=== PATIENT | female | born 1935 | race Caucasian/White ===

== ENCOUNTER → 2018-01-15 13:12 | Outpatient (CLI) | payer MEDICARE, OTHER, SELFPAY ==
--- NOTE | 2018-01-15 | OV.WND_ITS ---
Progress Note Details Patient Name: Arina Seaman Patient Number: [id number] PatientPatientDate: 01/15/2018 Clinician: Arlene Mcdonald Clinician Cosigner: Valeria Delacruz Physician / Prototype Engineer Manager: Brett Davila SUBJECTIVE Chief Complaint This information was obtained from the patient Cellulitis Right and Left legs. Allergies ciprofloxacin (Severity: Moderate, Reaction: dizzy light headed and heart palpatations), codeine (Severity: Mild, Reaction: Nausea and vomiting), morphine (Severity: Mild, Reaction: Nausea and Vomiting) HPI This information was obtained from the patient 01/15/18. Seen by Dr. Davila. The patient returns to clinic with recurrent of bilateral lower leg cellulitis and associated ulcers from scratching the areas due to severe pruritus. She has severe bilateral chronic venous hypertension and a history of recurrent MRSA infection of the legs. She does not report fevers, feeling unwell today, or other acute issues at this time. 05/23/17. Seen by Dr. Davila. The patient reports some continued pruritus associated with the right lower leg rash however does not report drainage or pain associated with the right lower leg venous ulcer since her last visit. Of note, she's not been applying the topical cortisone cream as recommended. 05/16/17. Seen by Dr. Davila. The patient reports decreased drainage and pruritus associated with the chronic bilateral lower leg venous ulcers. Her wound culture from last visit grew Staph pseudointermedius and she's been applying topical gentamicin daily as prescribed. 05/07/17. Seen by Dr. Davila. The patient returns to clinic with recurrence of bilateral lower leg venous ulcers. She states that the ulcers started draining over the past week and they are quite pruritic. She is not wearing her compression stockings as previously recommended and has been applying a number of [id number] topical ointments to treat the ulcers without any improvement over the past few weeks. 11/22/16. Seen by Dr. Davila. The patient states that her bilateral lower leg chronic rash is much improved following application of triamcinolone daily over the past 7 days. She reports much less pruritus and only some minimal excoriation in the akshat-rash areas. 11/15/16. Seen by Dr. Davila. The patient reports some persistent pruritus and drainage associated with the chronic and recurrent bilateral lower leg rash since her last visit. She does not report drainage from the recently healed right lower leg trauma wound however. 11/01/16. Seen by Dr. Davila. The patient does not report pain nor drainage associated with chronic right lower leg trauma wound. She does continue to have a bilateral lower leg rash that is quite itchy and she reports some excoriation and drainage at the sites. 10/25/16. Seen by Dr. Davila. The patient does not report pain or significant drainage associated with the slowly healing right lower leg trauma wound over the past week. 10/16/16. Seen by Lit Bills PA-C. The patient reports no increase in drainage from her right lower leg trauma wound. 10/09/16. Seen by Dr. Davila. The patient does not report pain or significant drainage associated with the slowly healing right lower leg trauma wound over the past week. She does report a new wound just proximal to the trauma wound that started as a blister then denuded while removing the dressing. She also continues to apply topical cortisone to the periwound rash as recommended. 10/02/16. Seen by Dr. Davila. The patient does not report pain nor significant drainage associated with the chronic right lower leg trauma wound since her last visit. She continues to report a mild, non-pruritic rash in the periwound area and has been applying topical hydrocortisone ointment daily to treat this problem. 09/25/16. Seen by Dr. Davila. The patient reports minimal pain and drainage associated with the chronic right lower leg trauma wound since her last visit. She did not tolerate clindamycin and is currently not taking antibiotics. She does report some persistent redness and drainage along the medial aspect of the wound which has previously been treated with steroid cream. 09/20/16. Seen by Dr. Davila. The patient does not report increased pain or drainage associated with the chronic right lower leg trauma wound. She was started on clindamycin for the recent coag negative Staph culture after the last visit due to wound infection however stopped taking this due to feeling dizzy. She does not report a rash, swelling, shortness of breath or any other specific symptoms associated with taking the antibiotic. 09/10/16. Seen by Lit Bills PA-C. The patient does not report increased drainage from her right lower leg wound or venous ulcer since her last evaluation. 09/05/16. Seen by Dr. Davila. The patient some increased pain and drainage associated with the chronic right lower leg trauma wound over the past week. She does not report any changes regarding the nearby right lower leg venous ulcer. 08/29/16. Seen by Dr. Davila. The patient feels the drainage and pain associated with the right lower leg trauma wound improved considerably since her last visit. 08/22/16. Seen by Dr. Davila. The patient feels the drainage and pain associated with the right lower leg trauma wound improved considerably since completing her course of antibiotics. Of note, her wound culture however was unremarkable. 08/20/16. Seen by Lit Bills PA-C. The patient reports no increase in pain or drainage from her right lower leg trauma wound since her last evaluation. 08/08/16. Seen by Dr. Davila. The patient reports some mild pain but no significant drainage associated with the right lower leg trauma wound. 08/05/16. Seen by Lit Bills PA-C. The patient reports some clear drainage from her wound since her last evaluation. It has now been 13 days since her sutures were placed in the ER and she is concerned about them being removed too early and would like me to assess if they need to be removed today. 07/30/16. Seen by Lit Bills PA-C. The patient returns to our clinic with a new wound to her right anterior lower leg. The wound was sustained by bumping her leg into an object and she notes little to no pain, which is dull in nature, non-radiating and is exacerbated by pressure. The patient reports no associated drainage though she does report bruising and a hematoma formation that, to her, appears intact. 01/15/[address] Davila. The patient feels her right lower leg swelling is much improved and she does not report drainage on her wound dressing covering the right lower leg chronic venous ulcer over the past week. 01/04/16. Seen by Dr. Davila. The patient feels that the bilateral leg swelling continues to improve and she states she's wearing compression stockings daily is recommended. She is also applying triamcinolone cream to the erythematous areas over the anterior lower legs and feels this has helped diminish the rash. 12/28/15. Seen by Dr. Davila. The patient continues to report swelling in her bilateral lower legs and is concerned about some erythema anteriorly. She reports a moderate drainage on the right leg venous ulcers and has been wearing compression stockings to treat chronic venous retention. She's unable to tolerate compression wraps however. She's now on doxycycline for a recurrent right lower leg wound infection and is not report adverse side effects. 12/22/[address] Davila. The patient feels her right lower leg erythema persists and complains of some mild discomfort along the medial aspect of the leg. She's wearing her compression stockings as recommended to treat chronic venous hypertension. She does not report significant drainage from he chronic right lower leg venous ulcer since her last visit. 12/14/[address] Davila. The patient feels her right lower leg swelling and redness have improved over the past week and she continues to wear her compression stocking as recommended to address her chronic venous hypertension. 12/07/[address] Davila. The patient does not report pain associated with the right lower leg venous ulcer and feels he drainage continues to decrease. 11/28/15 Seen by Lit Bills PA-C. The patient's lower leg edema continues to be difficult for her to control and does not seem improved by her assessment. She reports stable drainage from her ulcer. 11/21/[address] Davila. The patient feels the right lower leg venous ulcer is improving since starting on doxycycline for the recent MRSA positive wound culture and she does not report adverse side effects, associated pain, or fevers over the past week. The staff do not report significant drainage on the dressings and the patient does not report any problems with the bilateral lower leg compression wraps that are treating chronic venous hypertension. 11/17/[address] Davila. The patient is now on doxycycline for her MRSA positive wound culture taken at the last visit and she does not report adverse side effects. She's tolerating the compression stockings that's treating her chronic venous hypertension and her bilateral arterial Doppler was unremarkable. She also reports only minimal drainage from the chronic right lower leg venous ulcer. 11/10/[address] Davila. The patient returns to clinic reporting a new right lower leg ulcer and increased bilateral leg swelling. She states the ulcer started as a blister a few weeks ago, drains a moderate amount of clear fluid, and has developed some surrounding redness over the past week. She reports only minimal pain at the site and no fevers. She's also not been able to wear her compression stockings that's been treating chronic venous hypertension due to the increased leg swelling. 04/13/14 The patient does not report fever, chills or increased edema or erythema to her legs. 03/29/14 The patient was unable to complete her course of doxycycline due to constipation which is a common problem for her when taking antibiotics. The left let redness persists but she does not report a fever, chills, or pain. 03/23/14 The patient presents with increased edema and erythema of the left leg. She also has a blister on the left leg that is now weeping clear fluid. 03/07/14 Patient states she removed her wraps the evening after they were applied because they wouldn't stay up. She then applied her tetragrip stockings given to her at a previous visit. 03/02/14 The patient states that there were no problems with the Coban Lite compression wraps. However, they did slide down a bit and were uncomfortable after that. 02/28/14 Arina states she had no problems with her Tetragrips. She has been walking more often and she thinks her legs are feeling better. Her TOYIN study performed today was normal. 02/24/14 The patient was referred by Dr. Boo for lower extremity edema following a recent admission for left leg cellulitis treated with O/P IV vancomycin. This is a recurrent problem for many years and the patient's had workups in the past confirming venous insufficiency but does not recall having an arterial workup. She had laser therapy for venous insufficiency in the . Family History This information was obtained from the patient Unknown History - Maternal Grandparents, Paternal Grandparents, Heart Disease - Father, Sibling Social History This information was obtained from the patient Former smoker - 30 years and [id number], Alcohol Use - 1 drink 1-2 x week, Caffeine Use - 0-1, Marital Status - never , Retired - Lives alone/good support Past Medical History This information was obtained from the patient Patient has a medical history of: Varicose Veins (laser treament in past) Chronic venous hypertension (with inflammation) Hypothyroidism Hyperlipidemia Hypertention Osteoarthritis Aortic stenosis Morbid obesity Cellulitis (Both Legs) Migraines Verisocities of legs Surgical History This information was obtained from the patient Patient has a surgical history of: appendectomy removal colon polyps breast cystectomy laser surgery veins bilateral legs Complaints and Symptoms This information was obtained from the patient Patient complains of: General Notes: I have reviewed and concur with the Review of Systems and Past Family Social History documents completed by the clinician, I have reviewed and concur with the Wound Assessment document completed by the clinician Allergic/Immunologic: Frequent Rashes Cardiovascular (Central/Peripheral): Lower extremity (leg) swelling Integumentary (Hair/Skin/Nails): Open Sore Prior Wound History: Drainage, Erythema Patient denies complaints or symptoms related to: Cardiovascular (Central/Peripheral): Intermittent Claudication, Lower extremity (leg) resting pain Constitutional Symptoms (General Health): Chills, Fever, Marked Weight Change Ear/Nose/Mouth/Throat: Hearing Loss / Aid Gastrointestinal (GI): Nausea / Vomiting Hematologic/Lymphatic: Bleeding / Clotting Disorders, Bleeding Tendency Musculoskeletal: Assistive Devices Neurological: Loss of Protective Sensation, Weakness Prior Wound History: Bleeding, Malodor, Pain Psychiatric: Depression, Memory Loss Respiratory: Oxygen Use, Shortness of Breath General Notes: States updated on all Immunizations. Additional Information Does patient have a history of Cancer? Yes? Complete all questions.: No Medications simvastatin 20 mg tablet oral 1 1 tablet oral once daily lisinopril 20 mg tablet oral 1 1 tablet oral once daily metoprolol tartrate 50 mg tablet oral 1 1 tablet oral once daily triamterene 37.5 mg-hydrochlorothiazide 25 mg capsule oral 1 1 capsule oral once daily levothyroxine 125 mcg tablet oral 1 1 tablet oral once daily Bactrim DS 800 mg-160 mg tablet oral tablet oral twice daily for 7 days for cellulitis triamcinolone acetonide 0.1 % topical cream topical cream topical once daily for 7 days for rash OBJECTIVE Constitutional Vital signs reviewed and noted. Well developed. Alert. Clean appearing.. Height/ Length: 67 in (170.18 cm), Weight: 204 lbs (92.73 kgs), BMI: 31.9, Temperature: 98.8 ?F ( 37.11 ?C), Pulse: 88 bpm, Respiratory Rate: 18 breaths/min, Blood Pressure: 110/57 mmHg, Pulse Oximetry: 98 %. Ears, Nose, Mouth, and Throat: No clinically significant hearing loss on informal examination. Respiratory: No respiratory distress. Even respirations and without use of accessory muscles.. Cardiovascular: 2+ bilateral lower leg edema. Gastrointestinal (GI): Obese. Nondistended.. Integumentary (Hair, Skin) Moderate bilateral lower leg periwound erythema with warmth. Refer to appropriate clinician wound documentation for this visit; right and left lower leg ulcers extend to subcut with bases partially covered with pink granulation, remainder fibrin and slough. Wound #7 Left Leg is a chronic Partial Thickness Cellulitis and has received a status of Not Healed. Initial wound encounter measurements are 0.6cm length x 0.4cm width x 0.3cm depth, with an area of 0.24 sq cm and a volume of 0.072 cubic cm. No tunneling has been noted. No sinus tract has been noted. No undermining has been noted. There is a moderate amount of serous drainage noted which has no odor. The patient reports a wound pain of level 0/10. The wound margin is attached. Wound bed has No epithelialization, No eschar, Yes slough, No granulation. The periwound skin moisture is normal. The periwound skin color is normal. The periwound skin exhibited: Edema, Rash. The temperature of the periwound skin is Warm. Periwound skin presents with s/s of infection. Confirmation Description and Treatment Plan is: Signs and Symptoms Present. Local Pulse is Doppler. General Notes: Redness area [id number] Wound #8 Right Leg is a chronic Partial Thickness Cellulitis and has received a status of Not Healed. Initial wound encounter measurements are 1cm length x 0.3cm width x 0.1cm depth, with an area of 0.3 sq cm and a volume of 0.03 cubic cm. No tunneling has been noted. No sinus tract has been noted. No undermining has been noted. There is a small amount of serous drainage noted which has no odor. The patient reports a wound pain of level 0/ 10. The wound margin is attached. Wound bed has No epithelialization, No eschar, Yes slough, No granulation. The periwound skin texture is normal. The periwound skin moisture is normal. The periwound skin color is normal. The temperature of the periwound skin is Warm. Periwound skin presents with s/s of infection. Confirmation Description and Treatment Plan is: Signs and Symptoms Present. Local Pulse is Doppler. General Notes: Redness area measures [id number] Neurological: Cranial nerves grossly intact with symmetric function normal by informal observation.. ASSESSMENT Active Problems ICD-10 (Encounter Diagnosis) L03.116 - Cellulitis of left lower limb (Encounter Diagnosis) L03.115 - Cellulitis of right lower limb (Encounter Diagnosis) L97.811 - Non-pressure chronic ulcer of other part of right lower leg limited to breakdown of skin (Encounter Diagnosis) L97.821 - Non-pressure chronic ulcer of other part of left lower leg limited to breakdown of skin (Encounter Diagnosis) I87.313 - Chronic venous hypertension (idiopathic) with ulcer of bilateral lower extremity (Encounter Diagnosis) L29.8 - Other pruritus PROCEDURES Wound #8 Wound #8 (Cellulitis) is located on the right leg. A skin/subcutaneous tissue level surgical debridement with a total area debrided of 0.3 sq cm was performed by Brett Davila MD. Subcutaneous was removed along with devitalized tissue: slough. The following instrument(s) were used: curette. Pain control was achieved using EMLA lidocaine/prilocaine 2.5%/2.5%. A time out was conducted prior to the start of the procedure. No bleeding occurred. The procedure was tolerated well with a pain level of 0 throughout and a pain level of 0 following the procedure. Post Debridement Measurements: 1cm length x 0.3cm width x 0.1cm depth; with an area of 0.3 sq cm and a volume of 0.03 cubic cm; Additional Information Muscle fascia or bone removed and sent to pathology?: No PLAN Wound Orders: Wound #7 Left Leg Cleanser Cleanse Wound: - Clean with Normal saline or distilled. May Shower. - Please keep legs dry use Cast Boot when shower. Topical Treatments Antibiotic/Antimicrobial Ointment/Cream. - Triamcinolone Cream to legs every day. Make sure you rub well into your skin. Dressings Primary dressing: - Telfa to cover red area. Cover and secure with: - Roll gauze and transpore tape. Change Dressing: - Every day. Compression/Edema Control Elevation of leg(s) above the level of the heart when sitting. Avoid prolonged standing in one place. Single Layer Compression Hose - Terta Hand Plug Shaper Size F and G. Remove at night. Follow-Up Appointments Return Appointment: - - Next week. Scribing Attestation I attest, as the nurse, that I scribed these orders for the physician. Wound #8 Right Leg Cleanser Cleanse Wound: - Clean with Normal saline or distilled. May Shower. - Please keep legs dry use Cast Boot when shower. Topical Treatments Antibiotic/Antimicrobial Ointment/Cream. - Triamcinolone Cream to legs every day. Make sure you rub well into your skin. Dressings Primary dressing: - Telfa to cover red area. Cover and secure with: - Roll gauze and transpore tape. Change Dressing: - Every day. Compression/Edema Control Elevation of leg(s) above the level of the heart when sitting. Avoid prolonged standing in one place. Single Layer Compression Hose - Terta Hand Plug Shaper Size F and G. Remove at night. Follow-Up Appointments Return Appointment: - - Next week. Scribing Attestation I attest, as the nurse, that I scribed these orders for the physician. Laboratory: Culture Wound - Right Leg Medications prescribed: Bactrim DS - oral 800 mg-160 mg tablet twice daily for 7 days for cellulitis starting 01/15/2018 triamcinolone acetonide - topical 0.1 % cream once daily for 7 days for rash starting 01/15/2018 General Notes: Start Bactrim antibiotic today. I've reviewed the clinician's documentation and agree with the evaluation and plan as written. In addition, the patient's ulcer demonstrates evidence of non-viable devitalized tissue which will continue to benefit from sharp debridement to help promote granulation and expedite healing. Also, I've started the patient empirically on Bactrim for bilateral lower leg cellulitis and will adjust antibiotics pending the culture results. Electronic Signature(s) Signed By: Date: Brett Davila MD 01/16/2018 07:58:24 Entered By: Brett Davila on 01/16/2018 07:19:55
== END ==
PROVIDERS: Family Provider Internal Medicine; PCP Family Medicine; Visit Provider Internal Medicine
DX: L03.116 Cellulitis of left lower limb (principal); L03.115 Cellulitis of right lower limb; L97.812 Non-pressure chronic ulcer of other part of right lower leg with fat layer exposed; L97.822 Non-pressure chronic ulcer of other part of left lower leg with fat layer exposed; L29.8 Other pruritus
CPT/HCPCS: 11042; 87070; 87075; 87077; 87147; 87186; 87205

== ENCOUNTER → 2018-01-20 14:48 | Outpatient (CLI) | payer MEDICARE, OTHER, SELFPAY ==
--- NOTE | 2018-01-20 | OV.WND_ITS ---
Progress Note Details Patient Name: Arina Seaman Patient Number: [id number] PatientPatientDate: 01/20/2018 Clinician: Mami Ely Clinician Cosigner: Valeria Delacruz Physician / Accounts Receivable Analyst: Brett Davila SUBJECTIVE Chief Complaint This information was obtained from the patient Cellulitis Right and Left legs. Allergies ciprofloxacin (Severity: Moderate, Reaction: dizzy light headed and heart palpatations), codeine (Severity: Mild, Reaction: Nausea and vomiting), morphine (Severity: Mild, Reaction: Nausea and Vomiting) HPI This information was obtained from the patient 01/20/18. Seen by Dr. Davila. The patient reports a significant improvement in terms of pruritus and itching associated with the bilateral lower leg non-pressure ulcers since starting on Bactrim at her last visit. Her wound culture grew a resistant MSSA organism sensitive to Bactrim and the patient does not report adverse side effects from the antibiotic , fevers, nor other acute issues today. 01/15/18. Seen by Dr. Davila. The patient returns to clinic with recurrent of bilateral lower leg cellulitis and associated ulcers from scratching the areas due to severe pruritus. She has severe bilateral chronic venous hypertension and a history of recurrent MRSA infection of the legs. She does not report fevers, feeling unwell today, or other acute issues at this time. 05/23/17. Seen by Dr. Davila. The patient reports some continued pruritus associated with the right lower leg rash however does not report drainage or pain associated with the right lower leg venous ulcer since her last visit. Of note, she's not been applying the topical cortisone cream as recommended. 05/16/17. Seen by Dr. Davila. The patient reports decreased drainage and pruritus associated with the chronic bilateral lower leg venous ulcers. Her wound culture from last visit grew Staph pseudointermedius and she's been applying topical gentamicin daily as prescribed. 05/07/17. Seen by Dr. Davila. The patient returns to clinic with recurrence of bilateral lower leg venous ulcers. She states that the ulcers started draining over the past week and they are quite pruritic. She is not wearing her compression stockings as previously recommended and has been applying a number of poco-wrl-cqdizty topical ointments to treat the ulcers without any improvement over the past few weeks. 11/22/16. Seen by Dr. Davila. The patient states that her bilateral lower leg chronic rash is much improved following application of triamcinolone daily over the past 7 days. She reports much less pruritus and only some minimal excoriation in the akshat-rash areas. 11/15/16. Seen by Dr. Davila. The patient reports some persistent pruritus and drainage associated with the chronic and recurrent bilateral lower leg rash since her last visit. She does not report drainage from the recently healed right lower leg trauma wound however. 11/01/16. Seen by Dr. Davila. The patient does not report pain nor drainage associated with chronic right lower leg trauma wound. She does continue to have a bilateral lower leg rash that is quite itchy and she reports some excoriation and drainage at the sites. 10/25/16. Seen by Dr. Davila. The patient does not report pain or significant drainage associated with the slowly healing right lower leg trauma wound over the past week. 10/16/16. Seen by Lit Bills PA-C. The patient reports no increase in drainage from her right lower leg trauma wound. 10/09/16. Seen by Dr. Davila. The patient does not report pain or significant drainage associated with the slowly healing right lower leg trauma wound over the past week. She does report a new wound just proximal to the trauma wound that started as a blister then denuded while removing the dressing. She also continues to apply topical cortisone to the periwound rash as recommended. 10/02/16. Seen by Dr. Davila. The patient does not report pain nor significant drainage associated with the chronic right lower leg trauma wound since her last visit. She continues to report a mild, non-pruritic rash in the periwound area and has been applying topical hydrocortisone ointment daily to treat this problem. 09/25/16. Seen by Dr. Davila. The patient reports minimal pain and drainage associated with the chronic right lower leg trauma wound since her last visit. She did not tolerate clindamycin and is currently not taking antibiotics. She does report some persistent redness and drainage along the medial aspect of the wound which has previously been treated with steroid cream. 09/20/16. Seen by Dr. Davila. The patient does not report increased pain or drainage associated with the chronic right lower leg trauma wound. She was started on clindamycin for the recent coag negative Staph culture after the last visit due to wound infection however stopped taking this due to feeling dizzy. She does not report a rash, swelling, shortness of breath or any other specific symptoms associated with taking the antibiotic. 09/10/16. Seen by Lit Bills PA-C. The patient does not report increased drainage from her right lower leg wound or venous ulcer since her last evaluation. 09/05/16. Seen by Dr. Davila. The patient some increased pain and drainage associated with the chronic right lower leg trauma wound over the past week. She does not report any changes regarding the nearby right lower leg venous ulcer. 08/29/16. Seen by Dr. Davila. The patient feels the drainage and pain associated with the right lower leg trauma wound improved considerably since her last visit. 08/22/16. Seen by Dr. Davila. The patient feels the drainage and pain associated with the right lower leg trauma wound improved considerably since completing her course of antibiotics. Of note, her wound culture however was unremarkable. 08/20/16. Seen by Lit Bills PA-C. The patient reports no increase in pain or drainage from her right lower leg trauma wound since her last evaluation. 08/08/16. Seen by Dr. Davila. The patient reports some mild pain but no significant drainage associated with the right lower leg trauma wound. 08/05/16. Seen by Lit Bills PA-C. The patient reports some clear drainage from her wound since her last evaluation. It has now been 13 days since her sutures were placed in the ER and she is concerned about them being removed too early and would like me to assess if they need to be removed today. 07/30/16. Seen by Lit Bills PA-C. The patient returns to our clinic with a new wound to her right anterior lower leg. The wound was sustained by bumping her leg into an object and she notes little to no pain, which is dull in nature, non-radiating and is exacerbated by pressure. The patient reports no associated drainage though she does report bruising and a hematoma formation that, to her, appears intact. 01/15/[address] Davila. The patient feels her right lower leg swelling is much improved and she does not report drainage on her wound dressing covering the right lower leg chronic venous ulcer over the past week. 01/04/16. Seen by Dr. Davila. The patient feels that the bilateral leg swelling continues to improve and she states she's wearing compression stockings daily is recommended. She is also applying triamcinolone cream to the erythematous areas over the anterior lower legs and feels this has helped diminish the rash. 12/28/15. Seen by Dr. Davila. The patient continues to report swelling in her bilateral lower legs and is concerned about some erythema anteriorly. She reports a moderate drainage on the right leg venous ulcers and has been wearing compression stockings to treat chronic venous retention. She's unable to tolerate compression wraps however. She's now on doxycycline for a recurrent right lower leg wound infection and is not report adverse side effects. 12/22/[address] Davila. The patient feels her right lower leg erythema persists and complains of some mild discomfort along the medial aspect of the leg. She's wearing her compression stockings as recommended to treat chronic venous hypertension. She does not report significant drainage from he chronic right lower leg venous ulcer since her last visit. 12/14/[address] Davila. The patient feels her right lower leg swelling and redness have improved over the past week and she continues to wear her compression stocking as recommended to address her chronic venous hypertension. 12/07/[address] Davila. The patient does not report pain associated with the right lower leg venous ulcer and feels he drainage continues to decrease. 11/28/15 Seen by Lit Bills PA-C. The patient's lower leg edema continues to be difficult for her to control and does not seem improved by her assessment. She reports stable drainage from her ulcer. 11/21/[address] Davila. The patient feels the right lower leg venous ulcer is improving since starting on doxycycline for the recent MRSA positive wound culture and she does not report adverse side effects, associated pain, or fevers over the past week. The staff do not report significant drainage on the dressings and the patient does not report any problems with the bilateral lower leg compression wraps that are treating chronic venous hypertension. 11/17/[address] Davila. The patient is now on doxycycline for her MRSA positive wound culture taken at the last visit and she does not report adverse side effects. She's tolerating the compression stockings that's treating her chronic venous hypertension and her bilateral arterial Doppler was unremarkable. She also reports only minimal drainage from the chronic right lower leg venous ulcer. 11/10/[address] Davila. The patient returns to clinic reporting a new right lower leg ulcer and increased bilateral leg swelling. She states the ulcer started as a blister a few weeks ago, drains a moderate amount of clear fluid, and has developed some surrounding redness over the past week. She reports only minimal pain at the site and no fevers. She's also not been able to wear her compression stockings that's been treating chronic venous hypertension due to the increased leg swelling. 04/13/14 The patient does not report fever, chills or increased edema or erythema to her legs. 03/29/14 The patient was unable to complete her course of doxycycline due to constipation which is a common problem for her when taking antibiotics. The left let redness persists but she does not report a fever, chills, or pain. 03/23/14 The patient presents with increased edema and erythema of the left leg. She also has a blister on the left leg that is now weeping clear fluid. 03/07/14 Patient states she removed her wraps the evening after they were applied because they wouldn't stay up. She then applied her tetragrip stockings given to her at a previous visit. 03/02/14 The patient states that there were no problems with the Coban Lite compression wraps. However, they did slide down a bit and were uncomfortable after that. 02/28/14 Tommyn states she had no problems with her Tetragrips. She has been walking more often and she thinks her legs are feeling better. Her TOYIN study performed today was normal. 02/24/14 The patient was referred by Dr. Boo for lower extremity edema following a recent admission for left leg cellulitis treated with O/P IV vancomycin. This is a recurrent problem for many years and the patient's had workups in the past confirming venous insufficiency but does not recall having an arterial workup. She had laser therapy for venous insufficiency in the . Past Medical History This information was obtained from the patient Patient has a medical history of: Varicose Veins (laser treament in past) Chronic venous hypertension (with inflammation) Hypothyroidism Hyperlipidemia Hypertention Osteoarthritis Aortic stenosis Morbid obesity Cellulitis (Both Legs) Migraines Verisocities of legs Complaints and Symptoms This information was obtained from the patient Patient complains of: General Notes: I have reviewed and concur with the Review of Systems and Past Family Social History documents completed by the clinician, I have reviewed and concur with the Wound Assessment document completed by the clinician Allergic/Immunologic: Frequent Rashes Cardiovascular (Central/Peripheral): Lower extremity (leg) swelling Integumentary (Hair/Skin/Nails): Open Sore Prior Wound History: Drainage, Erythema Patient denies complaints or symptoms related to: Cardiovascular (Central/Peripheral): Intermittent Claudication, Lower extremity (leg) resting pain Constitutional Symptoms (General Health): Chills, Fever, Marked Weight Change Ear/Nose/Mouth/Throat: Hearing Loss / Aid Gastrointestinal (GI): Nausea / Vomiting Hematologic/Lymphatic: Bleeding / Clotting Disorders, Bleeding Tendency Musculoskeletal: Assistive Devices Neurological: Loss of Protective Sensation, Weakness Prior Wound History: Bleeding, Malodor, Pain Psychiatric: Depression, Memory Loss Respiratory: Oxygen Use, Shortness of Breath Additional Information Does patient have a history of Cancer? Yes? Complete all questions.: No OBJECTIVE Constitutional BP low; Afebrile; Alert and in no distress. Well developed. Alert. Clean appearing.. Height/Length: 67 in (170.18 cm), Weight: 204 lbs (92.73 kgs), BMI: 31.9, Temperature: 98.9 ?F (37.17 ?C), Pulse: 61 bpm, Respiratory Rate: 18 breaths/min, Blood Pressure: 97/59 mmHg, Pulse Oximetry: 98 %. Respiratory: No respiratory distress. Even respirations and without use of accessory muscles.. Cardiovascular: 2+ bilateral lower leg edema. Gastrointestinal (GI): Obese. Nondistended.. Integumentary (Hair, Skin) Mild periwound erythema with warmth. Refer to appropriate clinician wound documentation for this visit; blistering noted in the periwound area/s. Wound #7 Left Leg is a chronic Partial Thickness Cellulitis and has received a status of Not Healed. Subsequent wound encounter measurements are 0cm length x 0cm width with no measurable depth, with an area of 0 sq cm . No tunneling has been noted. No sinus tract has been noted. No undermining has been noted. There was no drainage noted. The patient reports a wound pain of level 0/10. The wound margin is attached. Wound bed has Yes epithelialization, No eschar, No slough, No granulation. The periwound skin moisture is normal. The periwound skin exhibited: Edema, Rash , Erythema. The temperature of the periwound skin is Warm. Periwound skin presents with s/s of infection. Confirmation Description and Treatment Plan is: Signs and Symptoms Present, Confirmed Systemic, Systemic Antibiotics Prescribed. Local Pulse is Doppler. Wound #8 Right Leg is a chronic Partial Thickness Cellulitis and has received a status of Not Healed. Subsequent wound encounter measurements are 0cm length x 0cm width with no measurable depth, with an area of 0 sq cm . No tunneling has been noted. No sinus tract has been noted. No undermining has been noted. There was no drainage noted. The patient reports a wound pain of level 0/10. The wound margin is attached. Wound bed has Yes epithelialization, No eschar, No slough, No granulation. The periwound skin moisture is normal. The periwound skin exhibited: Edema, Erythema. The temperature of the periwound skin is Warm. Periwound skin presents with s/s of infection. Confirmation Description and Treatment Plan is: Confirmed Systemic, Systemic Antibiotics Prescribed. Local Pulse is Doppler. Neurological: Cranial nerves grossly intact with symmetric function normal by informal observation.. ASSESSMENT Active Problems ICD-10 (Encounter Diagnosis) L03.116 - Cellulitis of left lower limb (Encounter Diagnosis) L03.115 - Cellulitis of right lower limb (Encounter Diagnosis) L97.811 - Non-pressure chronic ulcer of other part of right lower leg limited to breakdown of skin (Encounter Diagnosis) I87.313 - Chronic venous hypertension (idiopathic) with ulcer of bilateral lower extremity PLAN Wound Orders: Wound #7 Left Leg Cleanser Cleanse Wound: - Clean with Normal saline or distilled. May Shower. - Please keep legs dry use Cast Boot when shower. Topical Treatments Antibiotic/Antimicrobial Ointment/Cream. - Triamcinolone Cream to legs every day. Make sure you rub well into your skin. Compression/Edema Control Elevation of leg(s) above the level of the heart when sitting. Avoid prolonged standing in one place. Single Layer Compression Hose - [employer] Appraiser Size F and G. Remove at night. Follow-Up Appointments Return Appointment: - - Next week. Scribing Attestation I attest, as the nurse, that I scribed these orders for the physician. Wound #8 Right Leg Cleanser Cleanse Wound: - Clean with Normal saline or distilled. May Shower. - Please keep legs dry use Cast Boot when shower. Topical Treatments Antibiotic/Antimicrobial Ointment/Cream. - Triamcinolone Cream to legs every day. Make sure you rub well into your skin. Compression/Edema Control Elevation of leg(s) above the level of the heart when sitting. Avoid prolonged standing in one place. Single Layer Compression Hose - [employer] Appraiser Size F and G. Remove at night. Follow-Up Appointments Return Appointment: - - Next week. Scribing Attestation I attest, as the nurse, that I scribed these orders for the physician. Medications prescribed: Bactrim DS - oral 800 mg-160 mg tablet twice daily for 5 days for cellulitis starting 01/21/2018 General Notes: Please slate picker next course of antibiotic and take as prescribed. I've reviewed the clinician's documentation and agree with the evaluation and plan as written. Also, I've continued the patient on an additional 5 days of Bactrim for refractory cellulitis of the bilateral lower legs. Electronic Signature(s) Signed By: Date: Brett Davila MD 01/21/2018 08:37:45 Entered By: Brett Davila on 01/21/2018 08:21:36
== END ==
PROVIDERS: Family Provider Internal Medicine; PCP Family Medicine; Visit Provider Internal Medicine
DX: L97.811 Non-pressure chronic ulcer of other part of right lower leg limited to breakdown of skin (principal); L97.821 Non-pressure chronic ulcer of other part of left lower leg limited to breakdown of skin; A49.01 Methicillin susceptible Staphylococcus aureus infection, unspecified site; L03.115 Cellulitis of right lower limb; L03.116 Cellulitis of left lower limb
CPT/HCPCS: 99213

== ENCOUNTER → 2018-01-27 15:17 | Outpatient (CLI) | payer MEDICARE, OTHER, SELFPAY ==
--- NOTE | 2018-01-27 | OV.WND_ITS ---
Progress Note Details Patient Name: Arina Seaman Patient Number: [id number] PatientPatientDate: 01/27/2018 Clinician: Mami Ely Physician / Financial Management Analyst: Brett Davila SUBJECTIVE Chief Complaint This information was obtained from the patient Cellulitis Right and Left legs. Allergies ciprofloxacin (Severity: Moderate, Reaction: dizzy light headed and heart palpatations), codeine (Severity: Mild, Reaction: Nausea and vomiting), morphine (Severity: Mild, Reaction: Nausea and Vomiting) HPI This information was obtained from the patient 01/27/18. Seen by Dr. Davila. The patient states that her bilateral lower leg chronic pruritus is much improved following application of triamcinolone daily over the past 14 days and she's wearing her compression stockings as recommended. She also does not report drainage from the right lower leg venous ulcer. 01/20/18. Seen by Dr. Davila. The patient reports a significant improvement in terms of pruritus and itching associated with the bilateral lower leg non-pressure ulcers since starting on Bactrim at her last visit. Her wound culture grew a resistant MSSA organism sensitive to Bactrim and the patient does not report adverse side effects from the antibiotic , fevers, nor other acute issues today. 01/15/18. Seen by Dr. Davila. The patient returns to clinic with recurrent of bilateral lower leg cellulitis and associated ulcers from scratching the areas due to severe pruritus. She has severe bilateral chronic venous hypertension and a history of recurrent MRSA infection of the legs. She does not report fevers, feeling unwell today, or other acute issues at this time. 05/23/17. Seen by Dr. Davila. The patient reports some continued pruritus associated with the right lower leg rash however does not report drainage or pain associated with the right lower leg venous ulcer since her last visit. Of note, she's not been applying the topical cortisone cream as recommended. 05/16/17. Seen by Dr. Davila. The patient reports decreased drainage and pruritus associated with the chronic bilateral lower leg venous ulcers. Her wound culture from last visit grew Staph pseudointermedius and she's been applying topical gentamicin daily as prescribed. 05/07/17. Seen by Dr. Davila. The patient returns to clinic with recurrence of bilateral lower leg venous ulcers. She states that the ulcers started draining over the past week and they are quite pruritic. She is not wearing her compression stockings as previously recommended and has been applying a number of [id number] topical ointments to treat the ulcers without any improvement over the past few weeks. 11/22/16. Seen by Dr. Davila. The patient states that her bilateral lower leg chronic rash is much improved following application of triamcinolone daily over the past 7 days. She reports much less pruritus and only some minimal excoriation in the akshat-rash areas. 11/15/16. Seen by Dr. Davila. The patient reports some persistent pruritus and drainage associated with the chronic and recurrent bilateral lower leg rash since her last visit. She does not report drainage from the recently healed right lower leg trauma wound however. 11/01/16. Seen by Dr. Davila. The patient does not report pain nor drainage associated with chronic right lower leg trauma wound. She does continue to have a bilateral lower leg rash that is quite itchy and she reports some excoriation and drainage at the sites. 10/25/16. Seen by Dr. Davila. The patient does not report pain or significant drainage associated with the slowly healing right lower leg trauma wound over the past week. 10/16/16. Seen by Lit Bills PA-C. The patient reports no increase in drainage from her right lower leg trauma wound. 10/09/16. Seen by Dr. Davila. The patient does not report pain or significant drainage associated with the slowly healing right lower leg trauma wound over the past week. She does report a new wound just proximal to the trauma wound that started as a blister then denuded while removing the dressing. She also continues to apply topical cortisone to the periwound rash as recommended. 10/02/16. Seen by Dr. Davila. The patient does not report pain nor significant drainage associated with the chronic right lower leg trauma wound since her last visit. She continues to report a mild, non-pruritic rash in the periwound area and has been applying topical hydrocortisone ointment daily to treat this problem. 09/25/16. Seen by Dr. Davila. The patient reports minimal pain and drainage associated with the chronic right lower leg trauma wound since her last visit. She did not tolerate clindamycin and is currently not taking antibiotics. She does report some persistent redness and drainage along the medial aspect of the wound which has previously been treated with steroid cream. 09/20/16. Seen by Dr. Davila. The patient does not report increased pain or drainage associated with the chronic right lower leg trauma wound. She was started on clindamycin for the recent coag negative Staph culture after the last visit due to wound infection however stopped taking this due to feeling dizzy. She does not report a rash, swelling, shortness of breath or any other specific symptoms associated with taking the antibiotic. 09/10/16. Seen by Lit Bills PA-C. The patient does not report increased drainage from her right lower leg wound or venous ulcer since her last evaluation. 09/05/16. Seen by Dr. Davila. The patient some increased pain and drainage associated with the chronic right lower leg trauma wound over the past week. She does not report any changes regarding the nearby right lower leg venous ulcer. 08/29/16. Seen by Dr. Davila. The patient feels the drainage and pain associated with the right lower leg trauma wound improved considerably since her last visit. 08/22/16. Seen by Dr. Davila. The patient feels the drainage and pain associated with the right lower leg trauma wound improved considerably since completing her course of antibiotics. Of note, her wound culture however was unremarkable. 08/20/16. Seen by Lit Bills PA-C. The patient reports no increase in pain or drainage from her right lower leg trauma wound since her last evaluation. 08/08/16. Seen by Dr. Davila. The patient reports some mild pain but no significant drainage associated with the right lower leg trauma wound. 08/05/16. Seen by Lit Bills PA-C. The patient reports some clear drainage from her wound since her last evaluation. It has now been 13 days since her sutures were placed in the ER and she is concerned about them being removed too early and would like me to assess if they need to be removed today. 07/30/16. Seen by Lit Bills PA-C. The patient returns to our clinic with a new wound to her right anterior lower leg. The wound was sustained by bumping her leg into an object and she notes little to no pain, which is dull in nature, non-radiating and is exacerbated by pressure. The patient reports no associated drainage though she does report bruising and a hematoma formation that, to her, appears intact. 01/15/[address] Davila. The patient feels her right lower leg swelling is much improved and she does not report drainage on her wound dressing covering the right lower leg chronic venous ulcer over the past week. 01/04/16. Seen by Dr. Davila. The patient feels that the bilateral leg swelling continues to improve and she states she's wearing compression stockings daily is recommended. She is also applying triamcinolone cream to the erythematous areas over the anterior lower legs and feels this has helped diminish the rash. 12/28/15. Seen by Dr. Davila. The patient continues to report swelling in her bilateral lower legs and is concerned about some erythema anteriorly. She reports a moderate drainage on the right leg venous ulcers and has been wearing compression stockings to treat chronic venous retention. She's unable to tolerate compression wraps however. She's now on doxycycline for a recurrent right lower leg wound infection and is not report adverse side effects. 12/22/[address] Davila. The patient feels her right lower leg erythema persists and complains of some mild discomfort along the medial aspect of the leg. She's wearing her compression stockings as recommended to treat chronic venous hypertension. She does not report significant drainage from he chronic right lower leg venous ulcer since her last visit. 12/14/[address] Davila. The patient feels her right lower leg swelling and redness have improved over the past week and she continues to wear her compression stocking as recommended to address her chronic venous hypertension. 12/07/[address] Davila. The patient does not report pain associated with the right lower leg venous ulcer and feels he drainage continues to decrease. 11/28/15 Seen by Lit Bills PA-C. The patient's lower leg edema continues to be difficult for her to control and does not seem improved by her assessment. She reports stable drainage from her ulcer. 11/21/[address] Davila. The patient feels the right lower leg venous ulcer is improving since starting on doxycycline for the recent MRSA positive wound culture and she does not report adverse side effects, associated pain, or fevers over the past week. The staff do not report significant drainage on the dressings and the patient does not report any problems with the bilateral lower leg compression wraps that are treating chronic venous hypertension. 11/17/[address] Davila. The patient is now on doxycycline for her MRSA positive wound culture taken at the last visit and she does not report adverse side effects. She's tolerating the compression stockings that's treating her chronic venous hypertension and her bilateral arterial Doppler was unremarkable. She also reports only minimal drainage from the chronic right lower leg venous ulcer. 11/10/[address] Davila. The patient returns to clinic reporting a new right lower leg ulcer and increased bilateral leg swelling. She states the ulcer started as a blister a few weeks ago, drains a moderate amount of clear fluid, and has developed some surrounding redness over the past week. She reports only minimal pain at the site and no fevers. She's also not been able to wear her compression stockings that's been treating chronic venous hypertension due to the increased leg swelling. 04/13/14 The patient does not report fever, chills or increased edema or erythema to her legs. 03/29/14 The patient was unable to complete her course of doxycycline due to constipation which is a common problem for her when taking antibiotics. The left let redness persists but she does not report a fever, chills, or pain. 03/23/14 The patient presents with increased edema and erythema of the left leg. She also has a blister on the left leg that is now weeping clear fluid. 03/07/14 Patient states she removed her wraps the evening after they were applied because they wouldn't stay up. She then applied her tetragrip stockings given to her at a previous visit. 03/02/14 The patient states that there were no problems with the Coban Lite compression wraps. However, they did slide down a bit and were uncomfortable after that. 02/28/14 Arina states she had no problems with her Tetragrips. She has been walking more often and she thinks her legs are feeling better. Her TOYIN study performed today was normal. 02/24/14 The patient was referred by Dr. Boo for lower extremity edema following a recent admission for left leg cellulitis treated with O/P IV vancomycin. This is a recurrent problem for many years and the patient's had workups in the past confirming venous insufficiency but does not recall having an arterial workup. She had laser therapy for venous insufficiency in the . Past Medical History This information was obtained from the patient Patient has a medical history of: Varicose Veins (laser treament in past) Chronic venous hypertension (with inflammation) Hypothyroidism Hyperlipidemia Hypertention Osteoarthritis Aortic stenosis Morbid obesity Cellulitis (Both Legs) Migraines Verisocities of legs Complaints and Symptoms This information was obtained from the patient Patient complains of: General Notes: I have reviewed and concur with the Review of Systems and Past Family Social History documents completed by the clinician, I have reviewed and concur with the Wound Assessment document completed by the clinician Allergic/Immunologic: Frequent Rashes Cardiovascular (Central/Peripheral): Lower extremity (leg) swelling Integumentary (Hair/Skin/Nails): Open Sore Prior Wound History: Drainage, Erythema Patient denies complaints or symptoms related to: Cardiovascular (Central/Peripheral): Intermittent Claudication, Lower extremity (leg) resting pain Constitutional Symptoms (General Health): Chills, Fever, Marked Weight Change Ear/Nose/Mouth/Throat: Hearing Loss / Aid Gastrointestinal (GI): Nausea / Vomiting Hematologic/Lymphatic: Bleeding / Clotting Disorders, Bleeding Tendency Musculoskeletal: Assistive Devices Neurological: Loss of Protective Sensation, Weakness Prior Wound History: Bleeding, Malodor, Pain Psychiatric: Depression, Memory Loss Respiratory: Oxygen Use, Shortness of Breath Additional Information Does patient have a history of Cancer? Yes? Complete all questions.: No OBJECTIVE Constitutional BP low; Afebrile; Alert and in no distress. Well developed. Alert. Clean appearing.. Height/Length: 67 in (170.18 cm), Weight: 209.6 lbs (95.27 kgs), BMI: 32.8, Temperature: 97.7 ?F (36.5 ?C), Pulse: 69 bpm, Respiratory Rate: 18 breaths/min, Blood Pressure: 86/47 mmHg, Pulse Oximetry: 96 %. Ears, Nose, Mouth, and Throat: No clinically significant hearing loss on informal examination. Respiratory: No respiratory distress. Even respirations and without use of accessory muscles.. Cardiovascular: 2+ bilateral lower leg edema. Gastrointestinal (GI): Obese. Nondistended.. Integumentary (Hair, Skin) Mild erythema with hemosiderin staining noted over the lower legs bilaterally. Refer to appropriate clinician wound documentation for this visit.. Wound #7 Left Leg is a chronic Partial Thickness Cellulitis and has received an outcome of Healed - no new wound(s). Subsequent wound encounter measurements are 0cm length x 0cm width with no measurable depth, with an area of 0 sq cm . No tunneling has been noted. No sinus tract has been noted. No undermining has been noted. There was no drainage noted. The patient reports a wound pain of level 0/10. The wound margin is attached. Wound bed has Yes epithelialization, No eschar, No slough, No granulation. The periwound skin moisture is normal. The periwound skin exhibited: Edema, Rash , Erythema. The temperature of the periwound skin is Warm. Periwound skin presents with s/s of infection. Confirmation Description and Treatment Plan is: Signs and Symptoms Present, Confirmed Systemic, Systemic Antibiotics Prescribed. Local Pulse is Doppler. Wound #8 Right Leg is a chronic Partial Thickness Cellulitis and has received an outcome of Healed - no new wound(s). Subsequent wound encounter measurements are 0cm length x 0cm width with no measurable depth, with an area of 0 sq cm . No tunneling has been noted. No sinus tract has been noted. No undermining has been noted. There was no drainage noted. The patient reports a wound pain of level 0/10. The wound margin is attached. Wound bed has Yes epithelialization, No eschar, No slough, No granulation. The periwound skin moisture is normal. The periwound skin exhibited: Edema, Erythema. The temperature of the periwound skin is Warm. Periwound skin presents with s/s of infection. Confirmation Description and Treatment Plan is: Confirmed Systemic, Systemic Antibiotics Prescribed. Local Pulse is Doppler. Neurological: Cranial nerves grossly intact with symmetric function normal by informal observation.. ASSESSMENT Active Problems ICD-10 (Encounter Diagnosis) L97.811 - Non-pressure chronic ulcer of other part of right lower leg limited to breakdown of skin (Encounter Diagnosis) I87.313 - Chronic venous hypertension (idiopathic) with ulcer of bilateral lower extremity PLAN Wound Orders: Wound #7 Left Leg Cleanser Cleanse Wound: - Clean with Normal saline or distilled. May Shower. - . Topical Treatments Antibiotic/Antimicrobial Ointment/Cream. - May use hydrocortisone cream every 2- 3 days Compression/Edema Control Elevation of leg(s) above the level of the heart when sitting. Avoid prolonged standing in one place. Single Layer Compression Hose - Terta Link Assembler Size F and G. Remove at night. Scribing Attestation I attest, as the nurse, that I scribed these orders for the physician. Wound #8 Right Leg Cleanser Cleanse Wound: - Clean with Normal saline or distilled. May Shower. Topical Treatments Antibiotic/Antimicrobial Ointment/Cream. - May use hydrocortisone cream every 2- 3 days Compression/Edema Control Elevation of leg(s) above the level of the heart when sitting. Avoid prolonged standing in one place. Single Layer Compression Hose - Terta Link Assembler Size F and G. Remove at night. Scribing Attestation I attest, as the nurse, that I scribed these orders for the physician. Additional Orders: Follow-Up Appointments Other information: If you develop fever, chills, increased pain, drainage, redness or swelling please call our office. If after hours, respond to the ER. Should you experience any significant changes in your wound(s) or have any questions regarding your home care instructions please contact the wound center @ [phone]. If after hours, contact your primary care physician or go to the hospital emergency room. Discharge from Outpatient Services. - Wounds healed General Notes: Complete oral antibiotics. I've reviewed the clinician's documentation and agree with the evaluation and plan as written. In addition the patient's last remiaining complex wound is now healed. The patient is invited to return to our clinic for treatment of any future complex wounds. Post wound care and strategies to avoid recurrences were discussed. Also, I recommended applying compression wraps today due to the persistence of inflammation associated with the bilateral chronic venous hypertension however the patient refused this intervention and will simply continue wearing her Tetra-medical claims analyst stockings instead. Electronic Signature(s) Signed By: Date: Brett Davila MD 01/27/2018 16:47:11 Entered By: Brett Davila on 01/27/2018 14:59:00
== END ==
PROVIDERS: Family Provider Internal Medicine; PCP Family Medicine; Visit Provider Internal Medicine
DX: Z48.817 Encounter for surgical aftercare following surgery on the skin and subcutaneous tissue (principal); I87.2 Venous insufficiency (chronic) (peripheral)
CPT/HCPCS: 99213

== ENCOUNTER 2018-02-19 16:15 | Emergency (ER) | payer MEDICARE, OTHER, SELFPAY ==
[2018-02-19 16:18] VITALS: BP 146/82; PULSE 80; RESP 14; TEMP 36.2; O2SAT 97
--- NOTE | 2018-02-19 16:32 | ED_ITS ---
HPI - Extremity Problem <GALEN Mistry - Last Filed: 02/19/18 20:58> General Chief complaint: Extremity Problem,Nontraumatic Stated complaint: left leg pain and tenderness to the touch Time Seen by Provider: 02/19/18 16:32 Source: patient Mode of arrival: ambulatory Limitations: no limitations History of Present Illness HPI Narrative: 82-year-old female with history of cellulitis secondary to venous insufficiency of her lower extremities that is a nonsmoker here for complaint of redness to her left lower leg over the past couple months. She denies any fevers or chills. No trauma to the area. She has been treated for cellulitis to her lower extremities in the past by wound care. She is not currently on any antibiotics. No trauma to the area. She is ambulatory in the emergency room. She has no other concerns or complaints at this time. No shortness of breath. No chest pain Related Data Home Medications Medication Instructions Recorded Confirmed Vitamin B12+ Vitamin C 1 tab PO DAILY 02/19/18 02/19/18 acetaminophen 500 mg PO BID 02/19/18 02/19/18 ascorbic acid (vitamin C) [Vitamin 3 tab PO DAILY 02/19/18 02/19/18 C] aspirin 325 mg PO BID 02/19/18 02/19/18 calcium carbonate [Calcium 600] 1 tab PO DAILY 02/19/18 02/19/18 clobetasol-emollient 1 applictn TOPICAL 1-2XD PRN 02/19/18 02/19/18 docusate sodium 100 - 200 mg PO QPM 02/19/18 02/19/18 glucosamine-chondroitin 1 cap PO DAILY 02/19/18 02/19/18 lisinopril 20 mg PO QPM 02/19/18 02/19/18 metoprolol tartrate 50 mg PO QPM 02/19/18 02/19/18 multivitamin 0.5 tab PO QAM 02/19/18 02/19/18 psyllium husk [Metamucil] 1 - 2 cap PO PRN PRN 02/19/18 02/19/18 simvastatin [Zocor] 20 mg PO QPM 02/19/18 02/19/18 triamterene-hydrochlorothiazid 2 cap PO QDAY 02/19/18 02/19/18 [Dyazide] vitamin E 2 cap PO QAM 02/19/18 02/19/18 Previous Rx's Medication Instructions Recorded gentamicin 0.1 % topical ointment 1 applictn TOP TID #30 gram 01/05/18 levothyroxine 125 mcg tablet 125 mcg PO QAM #90 tab 01/05/18 clindamycin HCl 300 mg PO QID #28 cap 02/19/18 Allergies Allergy/AdvReac Type Severity Reaction Status Date / Time codeine [CODEINE] Allergy Mild NAUSEA, Verified 02/19/18 16:22 VOMITING morphine [MORPHINE] Allergy Mild NAUSEA, Verified 02/19/18 16:22 VOMITING ciprofloxacin [From CIPRO] AdvReac Intermediate Light Verified 02/19/18 16:22 headed Review of Systems <GALEN Mistry - Last Filed: 02/19/18 20:58> Constitutional Denies chills, Denies fever(s), Denies lethargy and Denies weakness Eyes Denies change in vision, Denies eye discharge, Denies irritation and Denies loss of vision ENT Ears, Nose, Mouth, and Throat: Denies change in voice, Denies neck pain and Denies sore throat Cardiovascular Denies chest pain, Denies irregular heart rhythm, Denies lightheadedness, Denies palpitations, Denies dyspnea, Denies dyspnea on exertion and Denies orthopnea Respiratory Denies cough, Denies dyspnea, Denies dyspnea on exertion and Denies wheezing Gastrointestinal Gastrointestinal: Denies abdominal pain, Denies change in bowel habits, Denies diarrhea, Denies nausea and Denies vomiting Genitourinary Denies hematuria, Denies flank pain, Denies urinary incontinence and Denies urinary urgency Musculoskeletal Denies neck pain Comments: Erythema left lower extremity Integumentary/Breasts Denies pruritus, Denies erythema, Denies rash and Denies wounds Neurologic Denies confusion, Denies loss of vision and Denies weakness Psychiatric Denies anxiety, Denies confusion, Denies depression, Denies homicidal ideation and Denies suicidal ideation Endocrine Denies palpitations Allergic/Immunologic Denies wheezing Exam <GALEN Mistry - Last Filed: 02/19/18 20:58> Initial Vital Signs Initial Vital Signs: Vital Signs Temperature 97.1 F L 02/19/18 16:18 Pulse Rate 80 02/19/18 16:18 Respiratory Rate 14 02/19/18 16:18 Blood Pressure 146/82 H 02/19/18 16:18 Pulse Oximetry 97 02/19/18 16:18 Const General: cooperative and well developed Nutritional Appearance: well nourished Orientation: alert, awake, oriented x3 and not confused [facility] Mouth: oral mucosae normal and moist mucous membranes Eyes Conjunctivae: conjunctivae normal Sclera: sclerae normal Pupils: PERRL EOM: EOM intact bilaterally Resp Effort & Inspection: normal respiratory effort, able to speak in complete sentences, no respiratory distress and no use of accessory muscles Auscultation: clear to auscultation bilaterally, no rales, no rhonchi and no wheezes Cardio Rate: regular rate Rhythm: regular rhythm Heart Sounds: no click, no gallops, no murmurs and no rubs Pulses: normal peripheral pulses Skin General: no rashes or lesions noted, No jaundice and No petechiae Neuro General: alert, oriented x3, gait normal and no focal motor deficits Speech: speech normal Extrem Other: Slight erythema to the left anterior avendaño. Plus one edema. Distal sensation is intact. Distal range of motion is intact. Distal pulses are intact. <Sreekanth Galicia MD - Last Filed: 02/19/18 21:01> Initial Vital Signs Initial Vital Signs: Vital Signs Temperature 97.1 F L 02/19/18 16:18 Pulse Rate 80 02/19/18 16:18 Respiratory Rate 14 02/19/18 16:18 Blood Pressure 146/82 H 02/19/18 16:18 Pulse Oximetry 97 02/19/18 16:18 Course <GALEN Mistry - Last Filed: 02/19/18 20:58> Orders Ordered: ED Orders 02/19/18 16:52 [facility] venous low extrem lt Stat 02/19/18 18:00 Complete Blood Count AUTO DIFF Stat Comprehensive Metabolic Panel Stat Prothrombin Time INR Stat Vital Signs - 8 hr 02/19/18 16:18 02/19/18 19:01 Temperature 97.1 F L Pulse Rate 80 55 L Respiratory Rate 14 16 Blood Pressure 146/82 H Blood Pressure [Right Arm] 122/66 Pulse Oximetry 97 99 <Sreekanth Galicia MD - Last Filed: 02/19/18 21:01> Orders Ordered: ED Orders 02/19/18 16:52 US periph venous low extrem lt Stat 02/19/18 18:00 Complete Blood Count AUTO DIFF Stat Comprehensive Metabolic Panel Stat Prothrombin Time INR Stat Vital Signs - 8 hr 02/19/18 16:18 02/19/18 19:01 Temperature 97.1 F L Pulse Rate 80 55 L Respiratory Rate 14 16 Blood Pressure 146/82 H Blood Pressure [Right Arm] 122/66 Pulse Oximetry 97 99 MDM - Extremity (Nontraumatic) <GALEN Mistry - Last Filed: 02/19/18 20:58> Lab Data Result diagrams: 02/19/18 18:00 02/19/18 18:00 Lab Results 02/19/18 02/19/18 02/19/18 Range/Units 18:00 18:00 18:00 WBC 5.4 (4.5-11.0) X10^3/uL RBC 4.37 (4.0-5.2) X10^6/uL Hgb 13.3 (12.0-16.0) g/dL Hct 40.6 (36-46) % MCV 92.9 (80-100) fL MCH 30.4 (26-34) PG MCHC 32.8 (30-36) % RDW 14.1 (11.6-14.8) % Plt Count 189 (150-400) X10^3/uL Neut % (Auto) 56.1 (50-75) % Lymph % (Auto) 27.6 (25-40) % [place] % (Auto) 11.6 (3-14) % Eos % (Auto) 3.5 (2-4) % Baso % (Auto) 1.2 (0-2) % Neut # (Auto) 3000 (8630-1147) /uL PT 12.4 (10.1-12.7) SECONDS INR 1.1 (0.9-1.3) Sodium 143 (137-145) mmol/L Potassium 4.3 (3.4-5.1) mmol/L Chloride 106 (98-107) mmol/L Carbon Dioxide 28 (22-32) mmol/L BUN 24 H (7-17) mg/dL Creatinine 1.00 (0.52-1.04) mg/dL Estimated GFR 53.1 L (>60) mL/min BUN/Creatinine Ratio 24.0 H (6-22) Glucose 82 (80-110) mg/dL Calcium 8.9 (8.4-10.2) mg/dL Total Bilirubin 0.4 (0.2-1.3) mg/dL AST 16 (14-36) IU/L ALT 23 (9-52) IU/L Alkaline Phosphatase 69 (38-126) U/L Total Protein 6.6 (6.3-8.2) g/dL Albumin 3.7 (3.5-5.0) g/dL Globulin 2.9 (1.7-4.1) g/dL Albumin/Globulin Ratio 1.3 (1.0-2.8) MDM Narrative Medical decision making narrative: CBC and Chem panel were obtained were unremarkable. Ultrasound of the left lower extremity was obtained was negative for any DVT. Will treat for starting cellulitis to the left lower extremity with clindamycin. She is encouraged to follow up with primary care provider next week for re-evaluation. For any worsening symptoms return to the emergency room. <Sreekanth Galicia MD - Last Filed: 02/19/18 21:01> Lab Data Lab Results 02/19/18 02/19/18 02/19/18 Range/Units 18:00 18:00 18:00 WBC 5.4 (4.5-11.0) X10^3/uL RBC 4.37 (4.0-5.2) X10^6/uL Hgb 13.3 (12.0-16.0) g/dL Hct 40.6 (36-46) % MCV 92.9 (80-100) fL MCH 30.4 (26-34) PG MCHC 32.8 (30-36) % RDW 14.1 (11.6-14.8) % Plt Count 189 (150-400) X10^3/uL Neut % (Auto) 56.1 (50-75) % Lymph % (Auto) 27.6 (25-40) % [place] % (Auto) 11.6 (3-14) % Eos % (Auto) 3.5 (2-4) % Baso % (Auto) 1.2 (0-2) % Neut # (Auto) 3000 (6181-7458) /uL PT 12.4 (10.1-12.7) SECONDS INR 1.1 (0.9-1.3) Sodium 143 (137-145) mmol/L Potassium 4.3 (3.4-5.1) mmol/L Chloride 106 (98-107) mmol/L Carbon Dioxide 28 (22-32) mmol/L BUN 24 H (7-17) mg/dL Creatinine 1.00 (0.52-1.04) mg/dL Estimated GFR 53.1 L (>60) mL/min BUN/Creatinine Ratio 24.0 H (6-22) Glucose 82 (80-110) mg/dL Calcium 8.9 (8.4-10.2) mg/dL Total Bilirubin 0.4 (0.2-1.3) mg/dL AST 16 (14-36) IU/L ALT 23 (9-52) IU/L Alkaline Phosphatase 69 (38-126) U/L Total Protein 6.6 (6.3-8.2) g/dL Albumin 3.7 (3.5-5.0) g/dL Globulin 2.9 (1.7-4.1) g/dL Albumin/Globulin Ratio 1.3 (1.0-2.8) Discharge Plan Departure Patient Disposition: Home Clinical Impression: Cellulitis of left leg Discharge Date/Time: 02/19/18 19:29 Interventions: ED Discharge Assessment Last Done: 02/19/18 19:29 Instructions: DI for Cellulitis -- Adult Activity Restrictions/Additional Instructions: Ultrasound left lower extremity was obtained was negative for blood clot. Laboratory results today was unremarkable. Will treat for starting cellulitis to left lower extremity with clindamycin. Use as directed. Use over-the- counter Tylenol as needed for any discomfort. Follow up with primary care provider next week for re-evaluation. For any worsening symptoms return to the emergency room. Prescriptions: New clindamycin HCl 300 mg capsule 300 mg PO QID Qty: 28 RF: 0 No Action gentamicin 0.1 % ointment 1 applictn TOP TID Qty: 30 RF: 0 levothyroxine [Synthroid] 125 mcg tablet 125 mcg PO QAM Qty: 90 RF: 3 lisinopril 20 mg tablet 20 mg PO QPM RF: 0 triamterene-hydrochlorothiazid [Dyazide] 37.5-25 mg capsule 2 cap PO QDAY RF: 0 simvastatin [Zocor] 20 mg tablet 20 mg PO QPM RF: 0 metoprolol tartrate 50 mg tablet 50 mg PO QPM RF: 0 clobetasol-emollient 0.05 % cream 1 applictn Topical 1-2XD PRN (Reason: vaginal irritation) RF: 0 multivitamin Tablet 0.5 tab PO QAM RF: 0 acetaminophen 500 mg Tablet 500 mg PO BID RF: 0 calcium carbonate [Calcium 600] 600 mg calcium (1,500 mg) Tablet 1 tab PO DAILY RF: 0 ascorbic acid (vitamin C) [Vitamin C] 500 mg Tablet 3 tab PO DAILY RF: 0 aspirin 325 mg Tablet,Delayed Release (Dr/Ec) 325 mg PO BID RF: 0 docusate sodium 100 mg Capsule 100 - 200 mg PO QPM RF: 0 glucosamine-chondroitin 500-400 mg Capsule 1 cap PO DAILY RF: 0 vitamin E 400 unit Capsule 2 cap PO QAM RF: 0 psyllium husk [Metamucil] 0.4 gram Capsule 1 - 2 cap PO PRN PRN (Reason: Constipation) RF: 0 Vitamin B12+ Vitamin C 1 tab PO DAILY RF: 0 Referrals: Shanthi Boo DO [Primary Care Provider] - <Sreekanth Galicia MD - Last Filed: 02/19/18 21:01> Cosign ED Attending Cosignature Attestation: I was present in the ER at the time of this patient's care. I was available for verbal consultation, or to see the patient directly if needed. I agree with the assessment, and care plan.
--- NOTE | 2018-02-19 16:52 | DI.US.S_ITS ---
PROCEDURE: US PERIPH VENOUS LOW EXTREM LT INDICATIONS: Pain and swelling to left lower extremity TECHNIQUE: Real-time imaging, as well as color and pulse Doppler interrogation, were performed of the lower extremity deep veins from the inguinal ligament to the popliteal fossa. COMPARISON: None. FINDINGS: The deep veins are normally compressible, and free of intraluminal thrombus. Color and pulse Doppler demonstrate normal phasic intraluminal flow. There is normal augmentation response to distal compression maneuver. Of note, the greater saphenous vein is status post ablation. IMPRESSION: 1. No evidence of deep venous thrombosis in the left lower extremity. Dictated by: Jaxson Chu M.D. on 02/19/2018 at 18:05 Approved by: Jaxson Chu M.D. on 02/19/2018 at 18:05
[2018-02-19 18:13] LABS: Add Manual Diff / Slide Review NO; Basophils Percent Auto 1.2 % (0-2); Eosinophils Percent Auto 3.5 % (2-4); Hematocrit 40.6 % (36-46); Hemoglobin 13.3 g/dL (12.0-16.0); Lymphocytes Percent Auto 27.6 % (25-40); Mean Corpuscular HGB Conc 32.8 % (30-36); Mean Corpuscular Hemoglobin 30.4 PG (26-34); Mean Corpuscular Volume 92.9 fL (80-100); Monocytes Percent Auto 11.6 % (3-14); Neutrophils Absolute Auto 3000 /uL (3000-5900); Neutrophils Percent Auto 56.1 % (50-75); Platelet Count 189 X10^3/uL (150-400); Red Blood Cell Count 4.37 X10^6/uL (4.0-5.2); Red Cell Distribution Width 14.1 % (11.6-14.8); White Blood Cell Count 5.4 X10^3/uL (4.5-11.0)
[2018-02-19 18:21] LABS: INR 1.1 (0.9-1.3); Prothrombin Time 12.4 SECONDS (10.1-12.7)
[2018-02-19 19:01] VITALS: BP 122/66; PULSE 55; RESP 16; O2SAT 99
[2018-02-19 19:06] LABS: Alanine Aminotransferase 23 IU/L (9-52); Albumin 3.7 g/dL (3.5-5.0); Albumin Globulin Ratio 1.3 (1.0-2.8); Alkaline Phosphatase 69 U/L (38-126); Aspartate Aminotransferase 16 IU/L (14-36); Bilirubin Total 0.4 mg/dL (0.2-1.3); Blood Urea Nitrogen 24 mg/dL (7-17); Calcium 8.9 mg/dL (8.4-10.2); Carbon Dioxide 28 mmol/L (22-32); Chloride 106 mmol/L (98-107); Estimated Glomerular Filt Rate 53.1 mL/min (>60); Globulin 2.9 g/dL (1.7-4.1); Glucose 82 mg/dL (80-110); HEMOLYSIS < 15 (0-50); Potassium 4.3 mmol/L (3.4-5.1); Sodium 143 mmol/L (137-145); Total Protein 6.6 g/dL (6.3-8.2)
== END 2018-02-19 19:29 | disposition home or self-care (01) ==
PROVIDERS: Emergency Provider Nurse Practitioner Family; Family Provider Internal Medicine; PCP Family Medicine
DX: L03.116 Cellulitis of left lower limb (principal)
CPT/HCPCS: 36415; 80053; 85025; 85610; 93971; 99282; 99284

== ENCOUNTER → 2018-10-21 15:29 | Outpatient (CLI) | payer MEDICARE, OTHER, SELFPAY ==
[2018-10-21 16:45] LABS: Alanine Aminotransferase 17 IU/L (9-52); Albumin 3.9 g/dL (3.5-5.0); Albumin Globulin Ratio 1.6 (1.0-2.8); Alkaline Phosphatase 82 U/L (38-126); Aspartate Aminotransferase 16 IU/L (14-36); BUN Creatinine Ratio 24.4 (6-22); Bilirubin Total 0.6 mg/dL (0.2-1.3); Blood Urea Nitrogen 22 mg/dL (7-17); Calcium 8.9 mg/dL (8.4-10.2); Carbon Dioxide 23 mmol/L (22-32); Chloride 108 mmol/L (98-107); Cholesterol 147 mg/dL (140-199); Estimated Glomerular Filt Rate 59.8 mL/min (>60); Globulin 2.5 g/dL (1.7-4.1); Glucose 93 mg/dL (80-110); HDL Cholesterol 50 mg/dL (40-60); HEMOLYSIS < 15 (0-50); LDL Cholesterol Calculated 71 mg/dL (<100); Potassium 4.2 mmol/L (3.4-5.1); Sodium 140 mmol/L (137-145); Total Protein 6.4 g/dL (6.3-8.2); Triglycerides 132 mg/dL (35-150)
[2018-10-21 17:02] LABS: Vitamin D 25 Hydroxy (D3) 15.1 ng/mL (30.0-100.0)
[2018-10-21 17:16] LABS: TSH w/ Reflex to FT4 0.73 uIU/mL (0.47-4.68)
== END ==
PROVIDERS: Family Provider Internal Medicine; PCP Family Medicine; Visit Provider Family Medicine
DX: E03.9 Hypothyroidism, unspecified (principal); M81.0 Age-related osteoporosis without current pathological fracture; I10 Essential (primary) hypertension
CPT/HCPCS: 36415; 80053; 80061; 82306; 84443

== ENCOUNTER → 2018-11-23 14:54 | Outpatient (CLI) | payer MEDICARE, OTHER, SELFPAY ==
--- NOTE | 2018-11-23 14:58 | DI.MG.S_ITS ---
BILATERAL DIGITAL SCREENING MAMMOGRAM 3D/2D WITH CAD: 11/23/2018 CLINICAL: Routine screening. Comparison is made to exams dated: 10/09/2017 mammogram, 07/11/2016 mammogram, and 07/10/2015 mammogram - [facility]. There are scattered fibroglandular elements in both breasts. Current study was also evaluated with a Computer Aided Detection (CAD) system. No significant masses, calcifications, or other findings are seen in either breast. There has been no significant interval change. IMPRESSION: NEGATIVE There is no mammographic evidence of malignancy. A 1 year screening mammogram is recommended. This exam was interpreted at Station ID: [id number]. NOTE: For mammograms, a report in lay terms will be sent to the patient. Approximately 15% of breast malignancies will not be visualized mammographically. In the management of a palpable breast mass, a negative mammogram must not discourage biopsy of a clinically suspicious lesion. Electronically Signed By: Jaxson gonzales/elder:11/23/2018 16:00:37 letter sent: Normal Exam ACR BI-RADS Category 1: Negative [id number]
== END ==
PROVIDERS: Family Provider Internal Medicine; PCP Family Medicine; Visit Provider Family Medicine
DX: Z12.31 Encounter for screening mammogram for malignant neoplasm of breast (principal)
CPT/HCPCS: 77063; 77067

== ENCOUNTER → 2019-03-15 16:54 | Outpatient (CLI) | payer MEDICARE, OTHER, SELFPAY ==
[2019-03-15 18:08] LABS: Vitamin D 25 Hydroxy (D3) 45.7 ng/mL (30.0-100.0)
== END ==
PROVIDERS: Family Provider Internal Medicine; PCP Family Medicine; Visit Provider Family Medicine
DX: M81.0 Age-related osteoporosis without current pathological fracture (principal)
CPT/HCPCS: 36415; 82306

== ENCOUNTER → 2019-05-19 11:56 | Outpatient (CLI) | payer MEDICARE, OTHER, SELFPAY ==
[2019-05-19 13:10] LABS: Alanine Aminotransferase 14 IU/L (<35); Albumin Globulin Ratio 1.7 (1.0-2.8); Alkaline Phosphatase 80 U/L (38-126); Aspartate Aminotransferase 23 IU/L (14-36); BUN Creatinine Ratio 18.8 (6-22); Bilirubin Total 0.7 mg/dL (0.2-1.3); Blood Urea Nitrogen 15 mg/dL (7-17); Calcium 9.2 mg/dL (8.4-10.2); Carbon Dioxide 25 mmol/L (22-32); Chloride 109 mmol/L (98-107); Cholesterol 138 mg/dL (140-199); Estimated Glomerular Filt Rate > 60.0 mL/min (>60); Globulin 2.3 g/dL (1.7-4.1); Glucose 92 mg/dL (80-110); HDL Cholesterol 39 mg/dL (40-60); HEMOLYSIS < 15 (0-50); LDL Cholesterol Calculated 74 mg/dL (<100); Potassium 4.4 mmol/L (3.4-5.1); Sodium 142 mmol/L (137-145); Total Protein 6.3 g/dL (6.3-8.2); Triglycerides 123 mg/dL (35-150)
== END ==
PROVIDERS: Family Provider Internal Medicine; PCP Family Medicine; Visit Provider Family Medicine
DX: E03.9 Hypothyroidism, unspecified (principal); E78.00 Pure hypercholesterolemia, unspecified; I10 Essential (primary) hypertension; I35.0 Nonrheumatic aortic (valve) stenosis
CPT/HCPCS: 36415; 80053; 80061

== ENCOUNTER → 2019-06-07 19:10 | Outpatient (CLI) | payer MEDICARE, OTHER, SELFPAY ==
--- NOTE | 2019-06-07 19:12 | DI.MRI.S_ITS ---
PROCEDURE: MR HEAD/BRAIN WO CON INDICATIONS: evaluate for normal pressure hydrocephalus TECHNIQUE: Non-contrast axial T1 spin echo, axial T2 fast spin echo, sagittal and axial FLAIR, coronal T2 fast spin echo, axial gradient echo, axial diffusion and ADC through the brain. COMPARISON: [facility], CT, CT HEAD/BRAIN WO CON, 06/01/2019, 13:11. FINDINGS: Image quality: Excellent. CSF spaces: Ventricles appear symmetric in size and shape. Basal cisterns are patent. No extra-axial fluid collections. Brain: No intracranial bleeds or mass effects. There is moderate cerebral volume loss for age. There are moderate to severe periventricular and deep white matter chronic small vessel ischemic changes. Brainstem appears normal. Diffusion-weighted images show no acute ischemic insults. No chronic ischemic insults. Normal intravascular flow voids are present. Skull and face: Calvarial bone marrow is normal in signal. Orbits are normal. Sinuses: Sinuses and mastoids are clear. IMPRESSION: 1. No acute intracranial abnormalities. 2. Cerebral volume loss and chronic microvascular ischemic changes. 3. If normal pressure hydrocephalus is suspected clinically, radionuclide cisternogram is suggested. Dictated by: Emilee Livingston M.D. on 06/08/2019 at 10:29 Approved by: Emilee Livingston M.D. on 06/08/2019 at 16:01
== END ==
PROVIDERS: PCP Family Medicine; Visit Provider Family Medicine
DX: S00.03XA Contusion of scalp, initial encounter (principal); W18.30XA Fall on same level, unspecified, initial encounter
CPT/HCPCS: 70551

== ENCOUNTER → 2019-08-30 10:13 | Outpatient (CLI) | payer MEDICARE, OTHER, SELFPAY ==
[2019-08-30 11:15] LABS: BUN Creatinine Ratio 29.6 (6-22); Blood Urea Nitrogen 24 mg/dL (7-17); Calcium 9.9 mg/dL (8.4-10.2); Carbon Dioxide 27 mmol/L (22-32); Chloride 109 mmol/L (98-107); Estimated Glomerular Filt Rate > 60.0 mL/min (>60); Glucose 105 mg/dL (80-110); HEMOLYSIS < 15 (0-50); Potassium 4.6 mmol/L (3.4-5.1); Sodium 142 mmol/L (137-145)
[2019-08-30 11:47] LABS: Free T3, Triiodothyronine Free 3.28 pg/mL (2.77-5.27); Free T4, Direct Thyroxine 1.52 ng/dL (0.78-2.19)
[2019-08-30 12:01] LABS: Thyroid Stimulating Hormone 0.51 uIU/mL (0.47-4.68)
== END ==
PROVIDERS: PCP Family Medicine; Referring Provider Family Medicine; Visit Provider Family Medicine
DX: E03.9 Hypothyroidism, unspecified (principal); I10 Essential (primary) hypertension
CPT/HCPCS: 36415; 80048; 84439; 84443; 84481

== ENCOUNTER → 2019-09-06 14:54 | Outpatient (CLI) | payer MEDICARE, OTHER, SELFPAY ==
--- NOTE | 2019-09-06 14:56 | DI.ECHO.S_ITS ---
[place] +---------+ Hospital +---------+ : : [address] : : : : [id number] : : : : Phone: [phone]+ Echocardiogram Report + + :Name: BRAULIO WEATHERS Study Date: 09/06/2019 Height: 67 in : :[facility] Weight: 222 lb : : Gender: Female BSA: 2.1 m2 : :: 1935 Age: 84 yrs BP: 122/82 mmHg: :Reason For Study: Aortic Stenosis : :Ordering Physician: Shanthi : :Rajeev Performed By: Onelia Rodriguez : :Referring: Savita Fabian : + + Interpretation Summary The left ventricle is normal in size. The ejection fraction is estimated to be 65-70%. The right ventricle is grossly normal size. The right ventricular systolic function is normal. The aortic valve is heavily calcified. The peak aortic velocity is 4.2 m/sec. The aortic valve mean gradient is 42.6 mmHg. The peak aortic velocity on the previous exam was 3.67 m/sec. sev ratio: 0.28 YARON indexed to BSA (cm^2/m^2): 0.55 There is severe aortic stenosis. Compared to the prior echo study, there has been an increase in the severity of aortic stenosis. There is mild tricuspid regurgitation. Compared to the prior echo exam, there has been a decrease in TR severity. The right ventricular systolic pressure is estimated to be at least 27 mmHg based on an estimated right atrial pressure of 3 mm Hg. Procedure: A two-dimensional transthoracic echocardiogram with color flow and Doppler was performed. The study quality was technically adequate. Comparison is made with the echocardiogram of 10/18/2018. The patient was in normal sinus rhythm during the exam. Left Ventricle: The left ventricle is normal in size. Proximal septal thickening is noted. There is no echo evidence for significant left ventricular outflow tract obstruction. There is no thrombus. The ejection fraction is estimated to be 65-70%. There has been no significant change since the previous exam. There are no focal wall motion abnormalities. Right Ventricle: The right ventricle is grossly normal size. The right ventricular systolic function is normal. Atria: Both atria are normal in size. There has been no significant change since the previous study. Mitral Valve: There is moderate mitral annular calcification. The mitral valve leaflets appear mildly thickened, but open well. There is trace mitral regurgitation. Aortic Valve: The aortic valve is heavily calcified. The aortic valve is not well visualized. There is severe aortic stenosis. The peak aortic velocity is 4.2 m/sec. The aortic valve mean gradient is 42.6 mmHg. The peak aortic velocity on the previous exam was 3.67 m/sec. YARON(V,D): 1.2 cm2 sev ratio: 0.28 YARON indexed to BSA (cm^2/m^2): 0.55. Compared to the prior echo study, there has been an increase in the severity of aortic stenosis. There is trace aortic regurgitation. Tricuspid Valve: Tricuspid leaflets are thickened. There is mild tricuspid regurgitation. The right ventricular systolic pressure is estimated to be at least 27 mmHg based on an estimated right atrial pressure of 3 mm Hg. Compared to the prior echo exam, there has been a decrease in TR severity. Pulmonic Valve: The pulmonic valve is not well seen, but is grossly normal. There is no pulmonic valvular regurgitation. Great Vessels: The aortic root is normal size. The ascending aorta is at the upper limits of normal in size. The IVC is of normal diameter and collapses greater than 50% with a sniff. This suggests a low right atrial pressure of 3 mm Hg. Pericardium/ Pleura There is no pericardial effusion. There is no pleural effusion. MMode/2D Measurements & Calculations LVIDd: 4.2 cm LVOT diam: 2.3 cm LVIDs: 2.6 cm Ao root diam: 2.8 cm FS: 38.4 % asc Aorta Diam: 3.4 cm EPSS: 0.59 cm Ao Arch Diam (Prox Trans): 3.2 cm IVSd: 1.3 cm LVPWd: 1.1 cm LV grace. diameter/BSA (cm/m^2): 2.0 LV sys. diameter/BSA (cm/m^2): 1.2 LA A2 area: 17.6 cm2 RA long axis: 4.9 cm LA A4 area: 14.2 cm2 RA area: 13.6 cm2 LA length (vol): 4.6 cm RA vol: 32.4 ml LA vol: 46.5 ml RA : 15.3 ml/m2 LA vol index: 22.0 ml/m2 IVC diam: 1.9 cm RVD1 (basal): 3.2 cm TAPSE: 2.9 cm Doppler Measurements & Calculations Ao V2 max: 421.5 cm/sec LVOT Max Ruddy: 117.1 cm/sec Ao V2 mean: 308.9 cm/sec LV V1 max P.5 mmHg Ao max P.1 mmHg LV V1 VTI: 29.4 cm Ao mean P.6 mmHg YARON(I,D): 1.2 cm2 Ao V2 VTI: 104.3 cm YARON(V,D): 1.2 cm2 sev ratio: 0.28 YARON indexed to BSA (cm^2/m^2): 0.55 MV E max ruddy: 68.3 cm/sec TR max ruddy: 243.8 cm/sec MV A max ruddy: 100.2 cm/sec TR max P.8 mmHg MV E/A: 0.68 Lat Peak E' Ruddy: 5.1 cm/sec E/E' lat: 13.4 MV dec time: 0.30 sec MV P1/2t: 90.4 msec MV P1/2t max ruddy: 69.2 cm/sec SV(LVOT): 122.0 ml MVA(P1/2t): 2.4 cm2 Reading Physician:04:35 PM
== END ==
PROVIDERS: PCP Family Medicine; Referring Provider Internal Medicine Cardiovascular Disease; Visit Provider Internal Medicine Cardiovascular Disease
DX: I08.2 Rheumatic disorders of both aortic and tricuspid valves (principal)
CPT/HCPCS: 93306

== ENCOUNTER → 2019-11-17 10:50 | Outpatient (CLI) | payer MEDICARE, OTHER, SELFPAY ==
--- NOTE | 2019-11-17 10:51 | DI.MRI.S_ITS ---
PROCEDURE: MR ABDOMEN WO CON INDICATIONS: Adrenal mass TECHNIQUE: Coronal HASTE, axial 2-D FLASH in- and [id number] with subtractions from the hepatic dome to the iliac crests. COMPARISON: [facility], ECHO DOPPLER COMPLETE, 09/06/2019, 14:56. FINDINGS: Image quality: Excellent. Adrenal glands: Normal appearing left adrenal gland. There is an ovoid mass at the right adrenal gland which measures up to 2.7 cm AP, 2.1 cm transverse, and 2.4 cm craniocaudad. This does not show generalized signal suppression on opposed phase gradient T1 imaging (series 4 image 15) and therefore is not considered a definite benign adrenal adenoma. Other solid organs: Liver is normal in overall size. Gallbladder appears normal. Biliary system is non dilated. Pancreas is normal in morphology. Spleen is normal in size. Both kidneys are normal in size, without hydronephrosis. Nodes and vessels: No retroperitoneal or mesenteric adenopathy by size criteria. Aorta and inferior vena cava are normal in size. Bowel and peritoneum: Unenhanced bowel loops are normal in caliber. No free fluid. Lung bases: No basal pleural effusions. Heart size is normal. Bones and soft tissues: No ventral hernias. Bone marrow is of normal overall signal. IMPRESSION: The ovoid adrenal mass on the right measures up to 2.7 x 2.1 x 2.4 cm and does not show characteristic signal suppression on opposed phase gradient T1 imaging that would indicate presence of benign adrenal adenoma as the underlying cause. Etiology remains indeterminate, sequential followup by noncontrast MRI could be obtained at 6 month intervals, however surgical consultation is recommended to assist in establishing appropriate next step. Dictated by: Alfonso Carver M.D. on 11/17/2019 at 13:23 Approved by: Alfonso Carver M.D. on 11/17/2019 at 13:41
== END ==
PROVIDERS: PCP Family Medicine; Referring Provider Family Medicine; Visit Provider Family Medicine
DX: E27.8 Other specified disorders of adrenal gland (principal)
CPT/HCPCS: 74181

== ENCOUNTER → 2019-12-10 09:10 | Outpatient (CLI) | payer MEDICARE, OTHER, SELFPAY ==
[2019-12-10 09:34] LABS: Blood Urea Nitrogen 17 mg/dL (7-17); Carbon Dioxide 27 mmol/L (22-32); Chloride 111 mmol/L (98-107); Estimated Glomerular Filt Rate > 60.0 mL/min (>60); Glucose 106 mg/dL (80-110); HEMOLYSIS < 15 (0-50); Potassium 4.3 mmol/L (3.4-5.1); Sodium 141 mmol/L (137-145)
--- NOTE | 2019-12-10 09:50 | DI.CT.S_ITS ---
PROCEDURE: CT ABDOMEN WO/W CON INDICATIONS: adrenal mass TECHNIQUE: Noncontrast 3 mm thick sections acquired from the diaphragms to the iliac crests. After the administration of intravenous contrast, 3 mm thick venous-phase and 15-minute delayed images acquired from the diaphragms to the iliac crests. For radiation dose reduction, the following was used: automated exposure control, adjustment of mA and/or kV according to patient size. COMPARISON: [facility], , MR ABDOMEN WO CON, 11/17/2019, 11:16. FINDINGS: Image quality: Excellent. Lung bases: Lung bases are clear. Heart size is normal. Small hiatal hernia. Adrenal glands: Right adrenal nodule measures 2.4 x 2.3 cm, (3/36). The nodule is somewhat heterogeneous. Noncontrast 23 Hounsfield units Portal venous phase 59 Hounsfield units. There may be a focus of macroscopic fat. Delayed phase 58 Hounsfield units Absolute washout 2.8%. (Absolute washout less than 60% is indeterminate). No left adrenal nodule. Solid organs: Liver is normal in size and enhancement. Gallbladder is unremarkable. Biliary system is non dilated. Pancreas enhances normally. Spleen is normal in size and enhancement. Kidneys are normal in size and enhancement. No hydronephrosis or nephrolithiasis. Peritoneum and bowel: Unenhanced bowel loops are normal in caliber and wall thickness. No free fluid or air. Nodes and vessels: No retroperitoneal or mesenteric adenopathy by size criteria. Aorta and inferior vena cava are normal in size. Atherosclerotic plaque. Miscellaneous: Small fat-containing periumbilical hernia. Bones: No suspicious bony lesions. No vertebral body compression fractures. IMPRESSION: 1. Right adrenal nodule measuring 2.4 cm is indeterminate. Absolute washout to 2.8%. (Also indeterminate on MRI). -Recommend comparisons with more remote prior cross-sectional imaging if available. -PET/CT may be helpful for further evaluation. -Biopsy and/or surgical consultation should also be considered. 2. No left adrenal nodule. Dictated by: Regis Oneil M.D. on 12/10/2019 at 10:49 Approved by: Regis Oneil M.D. on 12/10/2019 at 11:01
== END ==
PROVIDERS: PCP Family Medicine; Referring Provider Family Medicine; Visit Provider Family Medicine
DX: E27.8 Other specified disorders of adrenal gland (principal); I10 Essential (primary) hypertension
CPT/HCPCS: 36415; 74170; 80048; Q9967

== ENCOUNTER → 2019-12-18 10:44 | Outpatient (CLI) | payer MEDICARE, OTHER, SELFPAY ==
[2019-12-19 08:05] LABS: COVID19 Sendout Not Detected (Not Detect)
== END ==
PROVIDERS: PCP Family Medicine; Visit Provider Nurse Practitioner
DX: Z01.812 Encounter for preprocedural laboratory examination (principal)
CPT/HCPCS: 87635

== ENCOUNTER 2019-12-23 13:21 | Emergency (ER) | payer MEDICARE, OTHER, SELFPAY ==
[2019-12-23] VITALS (8 sets, daily range): BP systolic 143–171; BP diastolic 63–80; PULSE 54–80; RESP 18–21; TEMP 36.6; O2SAT 95–99; BMI 33.2
--- NOTE | 2019-12-23 13:29 | DI.RAD.S_ITS ---
PROCEDURE: XR CHEST 1V INDICATIONS: SOB, recent heart surgery TECHNIQUE: One view of the chest was acquired. COMPARISON: [facility], , CHEST 1 VIEW, 02/10/2014, 20:29. FINDINGS: Surgical changes and devices: Cardiac valvular stent is present. Lungs and pleura: Lungs are clear. No pleural effusions or pneumothorax. Mediastinum: Mediastinal contours appear normal. Heart size is normal. Bones and chest wall: No suspicious bony lesions. Overlying soft tissues appear unremarkable. IMPRESSION: Stable chest. No acute cardiopulmonary process is evident. Dictated by: Bebeto Smith M.D. on 12/23/2019 at 13:00 Approved by: Bebeto Smith M.D. on 12/23/2019 at 13:01
--- NOTE | 2019-12-23 13:29 | DI.CT.S_ITS ---
PROCEDURE: CT HEAD/BRAIN WO CON INDICATIONS: fall with head injury on plavix TECHNIQUE: Noncontrast 4.5 mm thick angled axial sections acquired from the foramen magnum to the vertex, with coronal and sagittal reformats. For radiation dose reduction, the following was used: automated exposure control, adjustment of mA and/or kV according to patient size. COMPARISON: [facility], CT, CT HEAD/BRAIN WO CON, 06/01/2019, 13:11. FINDINGS: Image quality: Diagnostic. CSF spaces: Basal cisterns are patent. No extra-axial fluid collections. The ventricles are symmetric in size and shape. Brain: No intracranial bleeds or masses. There is cerebral volume loss for age, with resultant ventricular and sulcal prominence. There are periventricular and deep white matter chronic small vessel ischemic changes. There is intracranial internal carotid artery atherosclerosis. Skull and face: Calvarium and visualized facial bones appear intact, without suspicious lesions. Sinuses: Visualized sinuses and mastoids are clear. IMPRESSION: 1. Stable head CT. No acute intracranial hemorrhage. 2. Chronic small vessel ischemic changes and parenchymal volume loss are similar to the prior study. Dictated by: Bebeto Smith M.D. on 12/23/2019 at 12:59 Approved by: Bebeto Smith M.D. on 12/23/2019 at 13:00
--- NOTE | 2019-12-23 14:06 | ED_ITS ---
HPI - Syncope General Chief Complaint: Syncope Stated Complaint: Near Syncopal Time Seen by Provider: 12/23/19 13:23 Source: EMS Mode of arrival: EMS Limitations: no limitations History of Present Illness HPI narrative: 84F former smoker with hypothyroidism, hyperlipidemia, HTN, and recent mitral valve surgery in [place] and was just discharged yesterday. Today she had a near syncopal episode after urinating and then standing up quickly. She did not lose consciousness. She denies chest pain or SOB. She's had no fever or chills. She has no nausea, vomiting or diarrhea. She did hit the back of her head but has full recall and denies focal neurologic findings such as blurred vision, trouble speech or numbness, weakness or tingling. Related Data Home Medications Medication Instructions Recorded Confirmed Vitamin B12+ Vitamin C 1 tab PO DAILY 02/19/18 08/30/19 acetaminophen 500 mg PO BID 02/19/18 08/30/19 ascorbic acid (vitamin C) [Vitamin 3 tab PO DAILY 02/19/18 08/30/19 C] aspirin 325 mg PO BID 02/19/18 08/30/19 clobetasol-emollient 1 applictn TOPICAL 1-2XD PRN 02/19/18 08/30/19 docusate sodium 100 - 200 mg PO QPM 02/19/18 08/30/19 glucosamine-chondroitin 1 cap PO DAILY 02/19/18 08/30/19 multivitamin 0.5 tab PO QAM 02/19/18 08/30/19 psyllium husk [Metamucil] 1 - 2 cap PO PRN PRN 02/19/18 08/30/19 vitamin E 2 cap PO QAM 02/19/18 08/30/19 omega-3 fatty acids 1,000 mg 1,000 mg PO DAILY 02/08/19 08/30/19 capsule metoprolol succinate 25 mg 50 mg PO DAILY tab 08/30/19 08/30/19 tablet,extended release 24 hr clopidogrel 75 mg PO DAILY 12/23/19 12/23/19 Previous Rx's Medication Instructions Recorded cholecalciferol (vitamin D3) 1,250 50,000 unit PO QWEEK #8 cap 01/11/19 mcg (50,000 unit) capsule levothyroxine 125 mcg tablet 125 mcg PO QAM #90 tab 01/11/19 triamterene 37.5 2 cap PO QDAY #180 cap 01/11/19 mg-hydrochlorothiazide 25 mg capsule nystatin-triamcinolone 100,000 1 applictn TOP BID #30 gram 03/30/19 unit/gram-0.1 % topical ointment oxybutynin chloride 5 mg tablet 5 mg PO BID #60 tab 03/30/19 lisinopril 20 mg tablet 20 mg PO QPM #90 tab 07/19/19 simvastatin 20 mg tablet 20 mg PO QPM #90 tab 07/19/19 Allergies Allergy/AdvReac Type Severity Reaction Status Date / Time codeine [CODEINE] Allergy Mild NAUSEA, Verified 12/23/19 14:03 VOMITING morphine [MORPHINE] Allergy Mild NAUSEA, Verified 12/23/19 14:03 VOMITING ciprofloxacin [From CIPRO] AdvReac Intermediate Light Verified 12/23/19 14:03 headed Review of Systems Constitutional Constitutional: Denies chills, Denies fatigue, Denies fever(s), Denies frequent falls, Denies lethargy and Denies weakness Eyes Eyes: Denies change in vision, Denies eye discharge, Denies irritation and Denies loss of vision ENT Ears, Nose, Mouth, and Throat: Denies change in voice, Denies dizziness, Denies neck pain, Denies sore throat and Denies throat swelling Cardiovascular Cardiovascular: Denies chest pain, Reports syncope, Denies irregular heart rhythm, Reports lightheadedness, Denies palpitations, Denies dyspnea, Denies dyspnea on exertion and Denies orthopnea Respiratory Respiratory: Denies cough, Denies dyspnea, Denies dyspnea on exertion and Denies wheezing Gastrointestinal Gastrointestinal: Denies abdominal pain, Denies change in bowel habits, Denies diarrhea, Denies nausea and Denies vomiting Musculoskeletal Musculoskeletal: Denies neck pain and Denies numbness Integumentary/Breasts Skin/Breast: Denies pruritus, Denies erythema, Denies rash and Denies wounds Neurologic Neurologic: Denies behavioral changes, Denies confusion, Denies dizziness, Reports syncope, Denies frequent falls, Denies loss of vision, Denies numbness and Denies weakness Psychiatric Psychiatric: Denies anxiety, Denies behavioral changes, Denies confusion, Denies depression, Denies homicidal ideation and Denies suicidal ideation Endocrine Endocrine: Denies fatigue, Denies flushing and Denies palpitations Hematologic/Lymphatic Hematologic/Lymphatic: Denies easy bruising Allergic/Immunologic Allergic/Immunologic: Denies urticaria, Denies throat swelling and Denies wheezing Patient History Medical History Abnormal Pap smear of cervix (Chronic) Adrenal nodule (Acute) Anal fissure (Resolved) Carotid artery plaque (Acute ~10/29/19) Cellulitis (Chronic ~2006) Cellulitis of right leg (Inactive) Common cold (Resolved) Eczema (Chronic) Foot pain (Chronic) Heel pain (Chronic) Hemorrhoids (Chronic) History of frequent headaches (Chronic) Hyperlipidemia (Chronic) Hypertension (Chronic 10/29/10) Hypothyroidism (Chronic) Lichen sclerosus (Chronic) Measles (Resolved ~1944) Migraines (Chronic) Obstructive sleep apnea hypopnea, mild (Acute) Peripheral vascular disease (Chronic) Plantar fasciitis (Chronic) Shoulder pain (Chronic) Varicosities of leg (Chronic) Vision abnormalities (Chronic) Vitamin D deficiency (Acute) Surgical History History of esophagogastroduodenoscopy (EGD) (05/13/17) Sigmoidoscopy performed (Resolved) Status post appendectomy Status post breast biopsy Status post colonoscopy (05/13/17) Status post sclerotherapy of varicose veins Family History Brother Heart disease Hypertension Father Heart disease Hypertension Heart attack Mother Osteoarthritis Sister Age: 82 Heart attack Heart disease Hypertension Brother Cancer Social History Smoking Status: Former smoker Smoking Status: Former smoker alcohol intake frequency: 0-2 drinks per day Substance Use Type: does not use Exam Narrative Exam Narrative: GENERAL: [84] year old patient appears stated age. Well- nourished, well-developed patient, in mild distress. HEAD: Atraumatic. Normocephalic. EYES: Pupils equal round and reactive. Extraocular motions intact. No scleral icterus. No injection or drainage. ENT: Dry mucous membranes. Nose without bleeding, purulent drainage. Throat without erythema, tonsillar hypertrophy or exudate. Airway patent. NECK: Trachea midline. Non tender CARDIOVASCULAR: Regular rate and rhythm without murmurs, gallops, or rubs. RESPIRATORY: Clear to auscultation. Breath sounds equal bilaterally. No wheezes, rales, or rhonchi. GASTROINTESTINAL: Abdomen soft, non-tender, nondistended. EXTREMITIES: No edema or joint tenderness. BACK: Nontender without deformity or crepitance. No flank tenderness. NEURO: AOx3. SKIN: No rash or erythema of visible areas Initial Vital Signs Initial Vital Signs: Vital Signs Temperature 97.9 F 12/23/19 13:49 Pulse Rate 55 L 12/23/19 13:49 Respiratory Rate 20 12/23/19 13:49 Blood Pressure 153/70 H 12/23/19 13:49 Pulse Oximetry 97 12/23/19 13:49 Course Orders Ordered: ED Orders 12/23/19 13:29 CT head/brain wo con Stat XR chest 1V Stat 12/23/19 14:23 Complete Blood Count AUTO DIFF Stat Comprehensive Metabolic Panel Stat Magnesium Stat NT-proBNP (BNP-Adult 18+) Stat Procalcitonin Stat Prothrombin Time INR Stat Troponin & CK Cardiac Panel Stat Sodium Chloride (Normal Saline 0.9%) 1,000 mls @ 125 mls/hr IV CONT DAPHNE Last Infusion: 12/23/19 17:57 Dose: 0 mls/hr Documented by: Admin: 12/23/19 14:07 Dose: 125 mls/hr Documented by: ALEXANDER Consultations Consultation #1: discussion with [employer] work supervisor cardio at [place]. After discussion of case we sure the opinion that the patient benefit from gentle hydration and some alteration in her medications. He recommends holding Dyazide till she follows up on Friday. Furthermore, he recommends stopping her current prescription for lisinopril and instead writing lisinopril 10 mg. Vital Signs Vital signs: Vital Signs - 8 hr 12/23/19 13:49 12/23/19 14:30 12/23/19 15:30 Temperature 97.9 F Pulse Rate 55 L 56 L 59 L Respiratory Rate 20 20 21 Blood Pressure 153/70 H 145/63 H 149/63 H Pulse Oximetry 97 97 99 12/23/19 16:00 12/23/19 16:30 Temperature Pulse Rate 63 54 L Respiratory Rate 19 18 Blood Pressure 163/71 H 163/70 H Pulse Oximetry 99 95 MDM - Syncope Lab Data Result diagrams: 12/23/19 14:23 12/23/19 14:23 Labs: Lab Results 12/23/19 12/23/19 12/23/19 Range/Units 14:23 14:23 14:23 WBC 8.5 (4.5-11.0) X10^3/uL RBC 4.31 (4.0-5.2) X10^6/uL Hgb 13.5 (12.0-16.0) g/dL Hct 41.1 (36-46) % MCV 95.4 (80-100) fL MCH 31.2 (26-34) PG MCHC 32.7 (30-36) % RDW 15.6 H (11.6-14.8) % Plt Count 103 L (150-400) X10^3/uL Neut % (Auto) 70.2 (50-75) % Lymph % (Auto) 13.9 L (25-40) % Isabela % (Auto) 9.6 (3-14) % Eos % (Auto) 5.2 H (2-4) % Baso % (Auto) 1.1 (0-2) % Neut # (Auto) 6000 (6468-9629) /uL Lymph # (Auto) 1200 (3604-7774) /uL Isabela # (Auto) 800 (0-900) /uL Eos # (Auto) 400 (0-450) /uL Baso # (Auto) 100 (0-100) /uL PT 11.7 (10.1-12.7) SECONDS INR 1.0 (0.9-1.3) Sodium 139 (137-145) mmol/L Potassium 4.4 (3.4-5.1) mmol/L Chloride 107 (98-107) mmol/L Carbon Dioxide 26 (22-32) mmol/L BUN 17 (7-17) mg/dL Creatinine 0.77 (0.52-1.04) mg/dL Estimated GFR > 60.0 (>60) mL/min BUN/Creatinine Ratio 22.1 H (6-22) Glucose 93 (80-110) mg/dL Calcium 9.3 (8.4-10.2) mg/dL Magnesium 2.3 (1.6-2.3) mg/dL Total Bilirubin 0.5 (0.2-1.3) mg/dL AST 30 (14-36) IU/L ALT 12 (<35) IU/L Alkaline Phosphatase 83 (38-126) U/L Total Creatine Kinase 41 (30-135) U/L CK-MB (CK-2) TNP CK-MB (CK-2) Rel Index TNP Troponin I 0.163 H* (0.01-0.034) ng/mL NT-Pro-B Natriuret Pep 751 H (<450) pg/mL Total Protein 6.5 (6.3-8.2) g/dL Albumin 3.9 (3.5-5.0) g/dL Globulin 2.6 (1.7-4.1) g/dL Albumin/Globulin Ratio 1.5 (1.0-2.8) Procalcitonin (<0.5) ng/mL 12/23/19 Range/Units 14:23 WBC (4.5-11.0) X10^3/uL RBC (4.0-5.2) X10^6/uL Hgb (12.0-16.0) g/dL Hct (36-46) % MCV (80-100) fL MCH (26-34) PG MCHC (30-36) % RDW (11.6-14.8) % Plt Count (150-400) X10^3/uL Neut % (Auto) (50-75) % Lymph % (Auto) (25-40) % Isabela % (Auto) (3-14) % Eos % (Auto) (2-4) % Baso % (Auto) (0-2) % Neut # (Auto) (1787-4454) /uL Lymph # (Auto) (6383-1590) /uL Isabela # (Auto) (0-900) /uL Eos # (Auto) (0-450) /uL Baso # (Auto) (0-100) /uL PT (10.1-12.7) SECONDS INR (0.9-1.3) Sodium (137-145) mmol/L Potassium (3.4-5.1) mmol/L Chloride (98-107) mmol/L Carbon Dioxide (22-32) mmol/L BUN (7-17) mg/dL Creatinine (0.52-1.04) mg/dL Estimated GFR (>60) mL/min BUN/Creatinine Ratio (6-22) Glucose (80-110) mg/dL Calcium (8.4-10.2) mg/dL Magnesium (1.6-2.3) mg/dL Total Bilirubin (0.2-1.3) mg/dL AST (14-36) IU/L ALT (<35) IU/L Alkaline Phosphatase (38-126) U/L Total Creatine Kinase (30-135) U/L CK-MB (CK-2) CK-MB (CK-2) Rel Index Troponin I (0.01-0.034) ng/mL NT-Pro-B Natriuret Pep (<450) pg/mL Total Protein (6.3-8.2) g/dL Albumin (3.5-5.0) g/dL Globulin (1.7-4.1) g/dL Albumin/Globulin Ratio (1.0-2.8) Procalcitonin < 0.05 (<0.5) ng/mL Urine Dip Bedside Urine Glucose Negative Bedside Urine Bilirubin - Negative Bedside Urine Ketone + 15 Urine Specific [place] 1.015 Bedside Urine Occult Blood - Negative Bedside Urine pH 7.0 Bedside Urine Protein +/- 15 Bedside Urine Urobilinogen - Negative Bedside Urine Nitrite - Negative Bedside Urine Leukocytes - Negative Esterase Imaging Data CT scan - head: Radiologist's Impression: Arina Seaman 84 [address] [place] [address] CT Scan Report Signed Patient: Arina Seaman [facility]#: [id number] : 5Acct:[id number] Age/Sex: 84 / FDate of Service: 12/23/19 Loc: ED Accession Number: [id number] Procedure: CT head/brain wo con Ordering Provider: Benito Longoria D.O. PROCEDURE: CT HEAD/BRAIN WO CON INDICATIONS: fall with head injury on plavix TECHNIQUE: Noncontrast 4.5 mm thick angled axial sections acquired from the foramen magnum to the vertex, with coronal and sagittal reformats. For radiation dose reduction, the following was used: automated exposure control, adjustment of mA and/or kV according to patient size. COMPARISON: [facility], CT, CT HEAD/BRAIN WO CON, 06/01/2019, 13:11. FINDINGS: Image quality: Diagnostic. CSF spaces: Basal cisterns are patent. No extra-axial fluid collections. The ventricles are symmetric in size and shape. Brain: No intracranial bleeds or masses. There is cerebral volume loss for age, with resultant ventricular and sulcal prominence. There are periventricular and deep white matter chronic small vessel ischemic changes. There is intracranial internal carotid artery atherosclerosis. Skull and face: Calvarium and visualized facial bones appear intact, without suspicious lesions. Sinuses: Visualized sinuses and mastoids are clear. IMPRESSION: 1. Stable head CT. No acute intracranial hemorrhage. 2. Chronic small vessel ischemic changes and parenchymal volume loss are similar to the prior study. Dictated by: Bebeto Smith M.D. on 12/23/2019 at 12:59 Approved by: Bebeot Smith M.D. on 12/23/2019 at 13:00 Chest x-ray: Radiologist's Impression: Arina Seaman 84 [address] [place] [address] XRay Report Signed Patient: Arina Seaman MMR#: [id number] : 5Acct:[id number] Age/Sex: 84 / FDate of Service: 12/23/19 Loc: ED Accession Number: [id number] Procedure: XR chest 1V Ordering Provider: Benito Longoria D.O. PROCEDURE: XR CHEST 1V INDICATIONS: SOB, recent heart surgery TECHNIQUE: One view of the chest was acquired. COMPARISON: [facility], CHEST 1 VIEW, 02/10/2014, 20:29. FINDINGS: Surgical changes and devices: Cardiac valvular stent is present. Lungs and pleura: Lungs are clear. No pleural effusions or pneumothorax. Mediastinum: Mediastinal contours appear normal. Heart size is normal. Bones and chest wall: No suspicious bony lesions. Overlying soft tissues appear unremarkable. IMPRESSION: Stable chest. No acute cardiopulmonary process is evident. Dictated by: Bebeto Smith M.D. on 12/23/2019 at 13:00 Approved by: Bebeto Smith M.D. on 12/23/2019 at 13:01 [facility] Narrative Medical decision making narrative: Patient feels much better after fluids. Ambulates through department to bathroom. Return precautions given. She und erstands plan and is in agreement. Discharge Plan Departure Patient Disposition: Home Clinical Impression: Near syncope, Acute dehydration Instructions: Fainting Activity Restrictions/Additional Instructions: *You have been diagnosed with [lightheadedness and near-syncope] *What to do: * STOP TAKING Diazide until you follow up. Stop taking the Lisinopril you have and get the prescription filled for 10mg daily. Otherwise take medications as previously directed. *Follow up with your primary care provider in 2-3 days, call for an appointment. Let them know you were seen in the Emergency Department and that we ask that you be seen in follow up *Return to ER if you should have any new, worsening or concerning symptoms Prescriptions: No Action cholecalciferol (vitamin D3) 50,000 unit capsule 50,000 unit PO QWEEK Qty: 8 RF: 0 levothyroxine [Synthroid] 125 mcg tablet 125 mcg PO QAM Qty: 90 RF: 3 triamterene-hydrochlorothiazid [Dyazide] 37.5-25 mg capsule 2 cap PO QDAY Qty: 180 RF: 1 nystatin-triamcinolone 100,000-0.1 unit/gram-% ointment 1 applictn TOP BID Qty: 30 RF: 1 oxybutynin chloride 5 mg tablet 5 mg PO BID Qty: 60 RF: 3 Hold Instructions: constipation lisinopril 20 mg tablet 20 mg PO QPM Qty: 90 RF: 1 simvastatin [Zocor] 20 mg tablet 20 mg PO QPM Qty: 90 RF: 1 metoprolol succinate 25 mg tablet extended release 24 hr 50 mg PO DAILY RF: 0 clobetasol-emollient 0.05 % cream 1 applictn Topical 1-2XD PRN (Reason: vaginal irritation) RF: 0 multivitamin Tablet 0.5 tab PO QAM RF: 0 acetaminophen 500 mg Tablet 500 mg PO BID RF: 0 ascorbic acid (vitamin C) [Vitamin C] 500 mg Tablet 3 tab PO DAILY RF: 0 aspirin 325 mg Tablet,Delayed Release (Dr/Ec) 325 mg PO BID RF: 0 docusate sodium 100 mg Capsule 100 - 200 mg PO QPM RF: 0 glucosamine-chondroitin 500-400 mg Capsule 1 cap PO DAILY RF: 0 vitamin E 400 unit Capsule 2 cap PO QAM RF: 0 psyllium husk [Metamucil] 0.4 gram Capsule 1 - 2 cap PO PRN PRN (Reason: Constipation) RF: 0 Vitamin B12+ Vitamin C 1 tab PO DAILY RF: 0 clopidogrel 75 mg tablet 75 mg PO DAILY RF: 0 omega-3 fatty acids [Fish Oil Concentrate] 1,000 mg capsule 1,000 mg PO DAILY RF: 0 Referrals: Shanthi Boo DO [Primary Care Provider] -
[2019-12-23] MEDS: SODIUM CHLORIDE 0.9% 1,000 ML 125 ML IV (14:07)
[2019-12-23 14:34] LABS: Add Manual Diff / Slide Review NO; Basophils Absolute Auto 100 /uL (0-100); Basophils Percent Auto 1.1 % (0-2); Eosinophils Absolute Auto 400 /uL (0-450); Eosinophils Percent Auto 5.2 % (2-4); Hematocrit 41.1 % (36-46); Hemoglobin 13.5 g/dL (12.0-16.0); Lymphocytes Absolute Auto 1200 /uL (1100-4500); Lymphocytes Percent Auto 13.9 % (25-40); Mean Corpuscular HGB Conc 32.7 % (30-36); Mean Corpuscular Hemoglobin 31.2 PG (26-34); Mean Corpuscular Volume 95.4 fL (80-100); Monocytes Absolute Auto 800 /uL (0-900); Monocytes Percent Auto 9.6 % (3-14); Neutrophils Absolute Auto 6000 /uL (1500-7000); Neutrophils Percent Auto 70.2 % (50-75); Platelet Count 103 X10^3/uL (150-400); Red Blood Cell Count 4.31 X10^6/uL (4.0-5.2); Red Cell Distribution Width 15.6 % (11.6-14.8); White Blood Cell Count 8.5 X10^3/uL (4.5-11.0)
[2019-12-23 14:45] LABS: Prothrombin Time 11.7 SECONDS (10.1-12.7)
[2019-12-23 14:46] LABS: Alanine Aminotransferase 12 IU/L (<35); Albumin 3.9 g/dL (3.5-5.0); Albumin Globulin Ratio 1.5 (1.0-2.8); Alkaline Phosphatase 83 U/L (38-126); Aspartate Aminotransferase 30 IU/L (14-36); BUN Creatinine Ratio 22.1 (6-22); Bilirubin Total 0.5 mg/dL (0.2-1.3); Blood Urea Nitrogen 17 mg/dL (7-17); Calcium 9.3 mg/dL (8.4-10.2); Carbon Dioxide 26 mmol/L (22-32); Chloride 107 mmol/L (98-107); Creatine Kinase 41 U/L (30-135); Estimated Glomerular Filt Rate > 60.0 mL/min (>60); Globulin 2.6 g/dL (1.7-4.1); Glucose 93 mg/dL (80-110); Magnesium 2.3 mg/dL (1.6-2.3); Potassium 4.4 mmol/L (3.4-5.1); Sodium 139 mmol/L (137-145); Total Protein 6.5 g/dL (6.3-8.2)
[2019-12-23 14:59] LABS: NT-proBNP (BNP-Adult 18+) 751 pg/mL (<450)
[2019-12-23 15:29] LABS: Procalcitonin < 0.05 ng/mL (<0.5)
[2019-12-23 15:32] LABS: HEMOLYSIS 21 (0-50)
[2019-12-23 15:40] LABS: Troponin I 0.163 ng/mL (0.01-0.034)
--- NOTE | 2019-12-23 18:06 | PC.NURSE ---
pt denied dizziness, pain, sob, ambulated with walker without difficulty. i assisted her with incont care. and ambulation to the bathroom. md villegas.
== END 2019-12-23 18:58 | disposition home or self-care (01) ==
PROVIDERS: Emergency Provider Emergency Medicine; PCP Family Medicine
DX: R55 Syncope and collapse (principal); E86.0 Dehydration; S09.90XA Unspecified injury of head, initial encounter; E03.9 Hypothyroidism, unspecified; E78.5 Hyperlipidemia, unspecified; I10 Essential (primary) hypertension; Z95.5 Presence of coronary angioplasty implant and graft
CPT/HCPCS: 36415; 70450; 71045; 80053; 81003; 82550; 83735; 83880; 84145; 84484; 85025; 85610; 93005; 93010; 96360; 96361; 99284

== ENCOUNTER → 2020-01-21 13:30 | Outpatient (CLI) | payer MEDICARE, OTHER, SELFPAY ==
[2020-01-21 14:30] LABS: BUN Creatinine Ratio 28.7 (6-22); Blood Urea Nitrogen 27 mg/dL (7-17); Calcium 9.6 mg/dL (8.4-10.2); Carbon Dioxide 25 mmol/L (22-32); Chloride 105 mmol/L (98-107); Estimated Glomerular Filt Rate 56.7 mL/min (>60); Glucose 89 mg/dL (80-110); HEMOLYSIS < 15 (0-50); Sodium 136 mmol/L (137-145)
== END ==
PROVIDERS: PCP Family Medicine; Referring Provider Internal Medicine Interventional Cardiology; Visit Provider Internal Medicine Interventional Cardiology
DX: I35.0 Nonrheumatic aortic (valve) stenosis (principal)
CPT/HCPCS: 36415; 80048

== ENCOUNTER → 2020-02-12 14:44 | Outpatient (CLI) | payer MEDICARE, OTHER, SELFPAY ==
[2020-02-13 09:17] LABS: COVID19 Sendout Not Detected (Not Detect)
== END ==
PROVIDERS: PCP Family Medicine; Visit Provider Physician Assistant
DX: Z11.59 Encounter for screening for other viral diseases (principal)
CPT/HCPCS: 87635

== ENCOUNTER 2020-05-22 14:00 | Outpatient (RCR) | payer MEDICARE, OTHER, SELFPAY | END 2020-05-22 15:00 | LOC: CAR 14:00 | PROVIDERS: Family Provider Internal Medicine Interventional Cardiology; PCP Family Medicine; Referring Provider Internal Medicine Interventional Cardiology; Visit Provider Internal Medicine Interventional Cardiology | DX: Z95.2 Presence of prosthetic heart valve (principal) | CPT/HCPCS: 93798 ==

== ENCOUNTER → 2020-05-26 15:37 | Outpatient (CLI) | payer MEDICARE, OTHER, SELFPAY ==
--- NOTE | 2020-05-26 15:40 | DI.MRI.S_ITS ---
PROCEDURE: MR ABDOMEN WO CON INDICATIONS: adrenal nodule TECHNIQUE: Coronal HASTE, axial 2-D FLASH in- and [id number] with subtractions from the hepatic dome to the iliac crests. COMPARISON: [facility], [place], [place] PET CT FUSION LIMITED AREA, 01/05/2020, 17:15. [facility], , MR ABDOMEN WO CON, 11/17/2019, 11:16. FINDINGS: Image quality: Excellent. Adrenal glands: As before, a right adrenal nodule is present, measuring roughly 24 mm, as before. There is no significant signal dropout on out of phase imaging to definitively indicate an adenoma. No left adrenal nodule. Other solid organs: Liver is normal in overall size. Gallbladder is within normal limits . Biliary system is non dilated. Pancreas is normal in morphology. Spleen is normal in size. Both kidneys are normal in size, without hydronephrosis. Nodes and vessels: No retroperitoneal or mesenteric adenopathy by size criteria. Aorta and inferior vena cava are normal in size. Bowel and peritoneum: Unenhanced bowel loops are normal in caliber. No free fluid. Lung bases: No basal pleural effusions. Heart size is normal. Bones and soft tissues: No ventral hernias. Bone marrow is of normal overall signal. IMPRESSION: 1. Stable indeterminate right adrenal mass. Follow-up noncontrast adrenal protocol MRI in 6 months is recommended. Dictated by: Brenton Woodson M.D. on 05/26/2020 at 16:33 Approved by: Brenton Woodson M.D. on 05/26/2020 at 16:37
== END ==
PROVIDERS: Family Provider Internal Medicine Interventional Cardiology; PCP Family Medicine; Referring Provider Family Medicine; Visit Provider Family Medicine
DX: E27.8 Other specified disorders of adrenal gland (principal)
CPT/HCPCS: 74181

== ENCOUNTER → 2020-08-18 11:11 | Outpatient (CLI) | payer MEDICARE, OTHER, SELFPAY ==
[2020-08-18 12:47] LABS: Alanine Aminotransferase 12 IU/L (<35); Albumin 3.8 g/dL (3.5-5.0); Albumin Globulin Ratio 1.8 (1.0-2.8); Alkaline Phosphatase 76 U/L (38-126); Aspartate Aminotransferase 22 IU/L (14-36); BUN Creatinine Ratio 21.1 (6-22); Bilirubin Total 0.4 mg/dL (0.2-1.3); Blood Urea Nitrogen 20 mg/dL (7-17); Calcium 9.1 mg/dL (8.4-10.2); Carbon Dioxide 27 mmol/L (22-32); Chloride 106 mmol/L (98-107); Cholesterol 152 mg/dL (140-199); Estimated Glomerular Filt Rate 55.9 mL/min (>60); Globulin 2.1 g/dL (1.7-4.1); Glucose 102 mg/dL (80-110); HDL Cholesterol 47 mg/dL (40-60); HEMOLYSIS < 15 (0-50); LDL Cholesterol Calculated 86 mg/dL (<100); Potassium 4.5 mmol/L (3.4-5.1); Sodium 139 mmol/L (137-145); Total Protein 5.9 g/dL (6.3-8.2); Triglycerides 96 mg/dL (35-150)
[2020-08-18 13:09] LABS: TSH w/ Reflex to FT4 1.09 uIU/mL (0.47-4.68)
== END ==
PROVIDERS: Family Provider Internal Medicine Interventional Cardiology; PCP Family Medicine; Referring Provider Family Medicine; Visit Provider Family Medicine
DX: E03.9 Hypothyroidism, unspecified (principal); E78.00 Pure hypercholesterolemia, unspecified; I10 Essential (primary) hypertension
CPT/HCPCS: 36415; 80053; 80061; 84443

== ENCOUNTER → 2020-11-08 13:14 | Outpatient (CLI) | payer MEDICARE, OTHER, SELFPAY ==
[2020-11-08 13:33] LABS: Hematocrit 40.5 % (36-46); Hemoglobin 13.4 g/dL (12.0-16.0); Mean Corpuscular HGB Conc 33.1 % (30-36); Mean Corpuscular Hemoglobin 31.6 PG (26-34); Mean Corpuscular Volume 95.2 fL (80-100); Platelet Count 156 X10^3/uL (150-400); Red Blood Cell Count 4.26 X10^6/uL (4.0-5.2); Red Cell Distribution Width 15.4 % (11.6-14.8)
[2020-11-08 14:01] LABS: BUN Creatinine Ratio 17.8 (6-22); Blood Urea Nitrogen 19 mg/dL (7-17); Carbon Dioxide 25 mmol/L (22-32); Chloride 108 mmol/L (98-107); Estimated Glomerular Filt Rate 48.7 mL/min (>60); Glucose 104 mg/dL (80-110); HEMOLYSIS < 15 (0-50); Potassium 4.1 mmol/L (3.4-5.1); Sodium 140 mmol/L (137-145)
== END ==
PROVIDERS: Family Provider Internal Medicine Interventional Cardiology; PCP Family Medicine; Referring Provider Internal Medicine Interventional Cardiology; Visit Provider Internal Medicine Interventional Cardiology
DX: Z95.2 Presence of prosthetic heart valve (principal); I06.0 Rheumatic aortic stenosis
CPT/HCPCS: 36415; 80048; 85027

== ENCOUNTER → 2020-11-16 18:34 | Outpatient (CLI) | payer MEDICARE, OTHER, SELFPAY ==
[2020-11-16 19:19] LABS: Add Manual Diff / Slide Review NO; Basophils Absolute Auto 100 /uL (0-100); Basophils Percent Auto 1.4 % (0-2); Eosinophils Absolute Auto 400 /uL (0-450); Hematocrit 40.2 % (36-46); Hemoglobin 13.5 g/dL (12.0-16.0); Lymphocytes Absolute Auto 1400 /uL (1100-4500); Lymphocytes Percent Auto 21.6 % (25-40); Mean Corpuscular HGB Conc 33.5 % (30-36); Mean Corpuscular Hemoglobin 31.9 PG (26-34); Mean Corpuscular Volume 95.2 fL (80-100); Monocytes Absolute Auto 600 /uL (0-900); Monocytes Percent Auto 8.7 % (3-14); Neutrophils Absolute Auto 4100 /uL (1500-7000); Neutrophils Percent Auto 62.3 % (50-75); Platelet Count 154 X10^3/uL (150-400); Red Blood Cell Count 4.22 X10^6/uL (4.0-5.2); Red Cell Distribution Width 15.2 % (11.6-14.8); White Blood Cell Count 6.5 X10^3/uL (4.5-11.0)
[2020-11-16 19:33] LABS: Lactate (Lactic Acid) 1.5 mmol/L (0.7-2.1)
[2020-11-16 19:35] LABS: Alanine Aminotransferase 14 IU/L (<35); Albumin Globulin Ratio 1.4 (1.0-2.8); Alkaline Phosphatase 85 U/L (38-126); Aspartate Aminotransferase 22 IU/L (14-36); BUN Creatinine Ratio 22.3 (6-22); Bilirubin Total 0.4 mg/dL (0.2-1.3); Blood Urea Nitrogen 23 mg/dL (7-17); Calcium 9.6 mg/dL (8.4-10.2); Carbon Dioxide 23 mmol/L (22-32); Chloride 107 mmol/L (98-107); Estimated Glomerular Filt Rate 50.9 mL/min (>60); Globulin 2.8 g/dL (1.7-4.1); Glucose 106 mg/dL (80-110); HEMOLYSIS < 15 (0-50); Sodium 138 mmol/L (137-145); Total Protein 6.8 g/dL (6.3-8.2)
== END ==
PROVIDERS: Family Provider Internal Medicine Interventional Cardiology; PCP Family Medicine; Referring Provider Student in an Organized Health Care Education/Training Program; Visit Provider Student in an Organized Health Care Education/Training Program
DX: L03.115 Cellulitis of right lower limb (principal)
CPT/HCPCS: 36415; 80053; 83605; 85025; 87040

== ENCOUNTER → 2020-11-22 11:13 | Outpatient (CLI) | payer MEDICARE, OTHER, SELFPAY ==
--- NOTE | 2020-11-22 | DI.MRI.S_ITS ---
PROCEDURE: MR ABDOMEN WO CON INDICATIONS: adrenal nodule follow up TECHNIQUE: Coronal HASTE, axial 2-D FLASH in- and [id number] with subtractions from the hepatic dome to the iliac crests. COMPARISON: [facility], MR, MR ABDOMEN WO CON, 05/26/2020, 15:43. [facility], MR, MR ABDOMEN WO CON, 11/17/2019, 11:16. FINDINGS: Image quality: Excellent. Adrenal glands: Normal left adrenal gland, 2.3 cm maximal dimension right adrenal gland which has not changed in size or morphology and also which does not show characteristic suppression of internal signal that is diagnostic for representing a definite adrenal adenoma. Other solid organs: Liver is normal in overall size. Gallbladder appears normal. Biliary system is non dilated. Pancreas is normal in morphology. Spleen is normal in size. Both kidneys are normal in size, without hydronephrosis. Nodes and vessels: No retroperitoneal or mesenteric adenopathy by size criteria. Aorta and inferior vena cava are normal in size. Bowel and peritoneum: Unenhanced bowel loops are normal in caliber. No free fluid. Lung bases: No basal pleural effusions. Heart size is normal. Bones and soft tissues: No ventral hernias. Bone marrow is of normal overall signal. IMPRESSION: The right adrenal nodule has not changed in size or morphology, and has imaging characteristics that render it indeterminate in origin. It does not show characteristic dropout in signal expected of a definite benign adrenal adenoma but this does not indicate definite malignant origin either overall, given the sequence of evaluations of this finding, a single follow-up noncontrast adrenal protocol MRI in 1 year from now is recommended. Dictated by: Alfonso Carver M.D. on 11/22/2020 at 12:57 Approved by: Alfonso Carver M.D. on 11/22/2020 at 13:01
== END ==
PROVIDERS: Family Provider Internal Medicine Interventional Cardiology; PCP Family Medicine; Referring Provider Family Medicine; Visit Provider Family Medicine
DX: E27.8 Other specified disorders of adrenal gland (principal)
CPT/HCPCS: 74181

== ENCOUNTER → 2020-11-29 13:09 | Outpatient (CLI) | payer MEDICARE, OTHER, SELFPAY | PROVIDERS: Family Provider Internal Medicine Interventional Cardiology; PCP Family Medicine; Referring Provider Family Medicine; Visit Provider Family Medicine | DX: I87.2 Venous insufficiency (chronic) (peripheral) (principal); L97.811 Non-pressure chronic ulcer of other part of right lower leg limited to breakdown of skin; R60.0 Localized edema | CPT/HCPCS: 97597; 99204; 99213 ==

== ENCOUNTER → 2020-12-13 14:04 | Outpatient (CLI) | payer MEDICARE, OTHER, SELFPAY | PROVIDERS: Family Provider Internal Medicine Interventional Cardiology; PCP Family Medicine; Referring Provider Family Medicine; Visit Provider Family Medicine | DX: I87.2 Venous insufficiency (chronic) (peripheral) (principal); L97.811 Non-pressure chronic ulcer of other part of right lower leg limited to breakdown of skin; R60.0 Localized edema; L03.115 Cellulitis of right lower limb | CPT/HCPCS: 87070; 87075; 87205; 97597; 99213 ==

== ENCOUNTER → 2020-12-20 13:20 | Outpatient (CLI) | payer MEDICARE, OTHER, SELFPAY | PROVIDERS: Family Provider Internal Medicine Interventional Cardiology; PCP Family Medicine; Referring Provider Family Medicine; Visit Provider Family Medicine | DX: I87.2 Venous insufficiency (chronic) (peripheral) (principal); L97.811 Non-pressure chronic ulcer of other part of right lower leg limited to breakdown of skin; R60.0 Localized edema; L03.115 Cellulitis of right lower limb; L08.9 Local infection of the skin and subcutaneous tissue, unspecified | CPT/HCPCS: 97597; 99213 ==

== ENCOUNTER → 2020-12-27 15:07 | Outpatient (CLI) | payer MEDICARE, OTHER, SELFPAY | PROVIDERS: Family Provider Internal Medicine Interventional Cardiology; PCP Family Medicine; Referring Provider Family Medicine; Visit Provider Family Medicine | DX: I87.2 Venous insufficiency (chronic) (peripheral) (principal); L97.811 Non-pressure chronic ulcer of other part of right lower leg limited to breakdown of skin; R60.0 Localized edema; L03.115 Cellulitis of right lower limb; L08.9 Local infection of the skin and subcutaneous tissue, unspecified | CPT/HCPCS: 97597; 99213 ==

== ENCOUNTER → 2021-01-10 14:46 | Outpatient (CLI) | payer MEDICARE, OTHER, SELFPAY | PROVIDERS: Family Provider Internal Medicine Interventional Cardiology; PCP Family Medicine; Referring Provider Family Medicine; Visit Provider Family Medicine | DX: I87.2 Venous insufficiency (chronic) (peripheral) (principal); L97.811 Non-pressure chronic ulcer of other part of right lower leg limited to breakdown of skin; R60.0 Localized edema; L03.115 Cellulitis of right lower limb; L08.9 Local infection of the skin and subcutaneous tissue, unspecified; Z79.01 Long term (current) use of anticoagulants | CPT/HCPCS: 11042; 87070; 87075; 87205; 99214 ==

== ENCOUNTER 2021-01-14 14:39 | Emergency (ER) | payer MEDICARE, OTHER, SELFPAY ==
[2021-01-14] VITALS (8 sets, daily range): BP systolic 141–163; BP diastolic 63–100; PULSE 60–74; RESP 18; TEMP 37.1; O2SAT 97–99; BMI 31.6
--- NOTE | 2021-01-14 14:49 | ED.EXTPRO ---
HPI - Extremity Problem General Chief complaint: Skin/Abscess/Foreign Body Stated complaint: Cellulitis L leg Time Seen by Provider: 01/14/21 14:45 Source: patient and old records reviewed Mode of arrival: Ambulatory Limitations: no limitations History of Present Illness HPI Narrative: This is an 85-year-old female who comes emergency department with concern for cellulitis. Patient has had cellulitis in both her lower extremities in the past. Most recently in her right lower extremity and following with Wound Care. She states she is taking oral antibiotics started last Friday but does not know what it is called she does note twice daily. Patient states she noticed in the last 24 hours erythema and skin changes consistent with cellulitis in the left lower extremity. Patient states there is a burning sensation. She denies any other symptoms. Patient denies any fevers, no chills. No chest pain or shortness of breath. No nausea or vomiting. No diarrhea, no constipation, no urinary symptoms. 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 She does take medication for hypertension, dyslipidemia and hypothyroidism. Related Data Home Medications Medication Instructions Recorded Confirmed Vitamin B12+ Vitamin C 1 tab PO DAILY 02/19/18 11/15/20 acetaminophen 500 mg tablet 500 mg PO BID 02/19/18 11/15/20 ascorbic acid (vitamin C) 500 mg 3 tab PO DAILY 02/19/18 11/15/20 tablet (Vitamin C) clobetasol-emollient 0.05 % 1 applictn TOPICAL 1-2XD PRN 02/19/18 11/15/20 topical cream docusate sodium 100 mg capsule 100 - 200 mg PO QPM 02/19/18 11/15/20 multivitamin 0.5 tab PO QAM 02/19/18 11/15/20 psyllium husk 0.4 gram capsule 1 - 2 cap PO PRN PRN 02/19/18 11/15/20 (Metamucil) omega-3 fatty acids 1,000 mg 1,000 mg PO DAILY 02/08/19 11/15/20 capsule (Fish Oil Concentrate) aspirin 81 mg tablet,delayed 81 mg PO DAILY 02/02/20 11/15/20 release (Adult Aspirin Regimen) loratadine 10 mg tablet (Allergy 10 mg PO DAILY 02/02/20 11/15/20 Relief (loratadine)) metoprolol succinate 25 mg 25 mg PO DAILY tab 02/02/20 11/15/20 tablet,extended release 24 hr lisinopril 10 mg tablet 5 mg PO DAILY tab 03/22/20 11/15/20 warfarin 5 mg tablet 5 mg PO DAILY 12/26/20 Previous Rx's Medication Instructions Recorded nystatin-triamcinolone 100,000 1 applictn TOP BID #30 gram 03/30/19 unit/gram-0.1 % topical ointment Handi Cap Placard #1 ea 01/06/20 levothyroxine 125 mcg tablet 125 mcg PO QAM #10 tab 05/05/20 (Synthroid) triamterene 37.5 2 cap PO QDAY #180 cap 05/05/20 mg-hydrochlorothiazide 25 mg capsule (Dyazide) simvastatin 20 mg tablet See Rx Instructions .ROUTE 12/20/20 .COMPLEX #90 tab handicap placard #1 ea 12/25/20 clindamycin HCl 300 mg capsule 300 mg PO QID #40 cap 01/14/21 Allergies Allergy/AdvReac Type Severity Reaction Status Date / Time codeine [CODEINE] Allergy Mild NAUSEA, Verified 11/15/20 15:28 VOMITING morphine [MORPHINE] Allergy Mild NAUSEA, Verified 11/15/20 15:28 VOMITING adhesive tape AdvReac Intermediate skin Verified 11/15/20 15:28 irritation ciprofloxacin [From CIPRO] AdvReac Intermediate Light Verified 11/15/20 15:28 headed Review of Systems Review of Systems ROS Unobtainable: All systems reviewed & are unremarkable except as noted in HPI and below Patient History Medical History Abnormal Pap smear of cervix Adrenal nodule Anal fissure Carotid artery plaque (~10/29/19) Cellulitis (~2006) Cellulitis of right leg Common cold Eczema Foot pain Heel pain Hemorrhoids History of frequent headaches Hyperlipidemia Hypertension (10/29/10) Hypothyroidism Lichen sclerosus Measles (~1945) Migraines Obstructive sleep apnea hypopnea, mild Peripheral vascular disease Plantar fasciitis 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) Shoulder pain Varicosities of leg Vision abnormalities Vitamin D deficiency Surgical History History of esophagogastroduodenoscopy (EGD) (05/13/17) S/P TAVR (transcatheter aortic valve replacement) Sigmoidoscopy performed Status post appendectomy Status post breast biopsy Status post colonoscopy (05/13/17) Status post sclerotherapy of varicose veins Family History Brother Heart disease Hypertension Father Heart disease Hypertension Heart attack Mother Osteoarthritis Sister Age: 83 Heart attack Heart disease Hypertension Brother Cancer Social History Smoking Status: Former smoker Smoking Status: Former smoker alcohol intake frequency: 0-2 drinks per day Substance Use Type: does not use Exam Narrative Exam Narrative: GENERAL: Alert and oriented x three, HEENT: Head normocephalic, atraumatic, EOMI, pupils reactive, face symmetric, moist mucous membranes NECK: Supple, full range of motion CARDIOVASCULAR: Regular rate and rhythm without murmurs, rubs or gallops. RESPIRATORY: Breath sounds equal bilaterally, no wheezes rales or rhonchi. ABDOMEN: Soft, nontender. Normoactive bowel sounds all 4 quadrants. No guarding or rebound, rigidity, no mass : No CVA tenderness EXTREMITIES: Normal range of motion, no clubbing or edema. Neurovascularly intact NEUROLOGICAL: Cranial nerves II through XII grossly intact. Moving all extremities SKIN: Warm, dry, no petechiae, no rashes or lesions. Initial Vital Signs Initial Vital Signs: Vital Signs Pulse Rate 73 01/14/21 14:36 Pulse Oximetry 99 01/14/21 14:36 Course Orders Ordered: ED Orders 01/14/21 15:08 Complete Blood Count AUTO DIFF Stat Comprehensive Metabolic Panel Stat Partial Thromboplastin Time Stat Procalcitonin Stat Prothrombin Time INR Stat 01/14/21 15:21 Urinalysis and Microscopic Stat Urine Culture Stat 01/14/21 15:33 Blood Culture Stat Discontinued Medications Clindamycin Phosphate (Cleocin) 600 mg in 50 mls @ 50 mls/hr IV NOW ONE Stop: 01/14/21 15:47 Last Infusion: 01/14/21 17:00 Dose: 0 mls/hr Documented by: Admin: 01/14/21 15:41 Dose: 50 mls/hr Documented by: ALEXANDER Reevaluation(s) Reevaluation #1: recheck discussed with patient labs are reassuring. Plan to change antibiotics. Her sister is coming with her current medication list. Patient feels comfortable returning home with return precautions. Vital Signs Vital signs: Vital Signs - 8 hr 01/14/21 14:36 01/14/21 14:55 01/14/21 15:59 Temperature 98.7 F Pulse Rate 73 74 60 Respiratory Rate 18 Blood Pressure 163/70 H 149/66 H Pulse Oximetry 99 99 97 01/14/21 16:00 01/14/21 16:30 01/14/21 16:31 Temperature Pulse Rate 62 68 65 Respiratory Rate Blood Pressure 161/69 H 157/100 H Pulse Oximetry 97 98 99 01/14/21 16:38 01/14/21 17:00 Temperature Pulse Rate 62 63 Respiratory Rate Blood Pressure 141/63 H 157/70 H Pulse Oximetry 99 97 MDM - Extremity (Nontraumatic) Lab Data Result diagrams: 01/14/21 15:08 01/14/21 15:08 Labs: Lab Results 01/14/21 01/14/21 01/14/21 Range/Units 15:08 15:08 15:08 WBC 6.1 (4.5-11.0) X10^3/uL RBC 4.35 (4.0-5.2) X10^6/uL Hgb 13.6 (12.0-16.0) g/dL Hct 41.5 (36-46) % MCV 95.4 (80-100) fL MCH 31.2 (26-34) PG MCHC 32.7 (30-36) % RDW 14.8 (11.6-14.8) % Plt Count 157 (150-400) X10^3/uL Neut % (Auto) 62.8 (50-75) % Lymph % (Auto) 16.7 L (25-40) % Buchanan % (Auto) 7.3 (3-14) % Eos % (Auto) 11.9 H (2-4) % Baso % (Auto) 1.3 (0-2) % Neut # (Auto) 3900 (9718-4177) /uL Lymph # (Auto) 1000 L (0549-7771) /uL Buchanan # (Auto) 400 (0-900) /uL Eos # (Auto) 700 H (0-450) /uL Baso # (Auto) 100 (0-100) /uL PT 39.7 H (10.1-12.7) SECONDS INR 3.4 H (0.9-1.3) APTT (26.4-36.2) SECONDS Sodium 140 (137-145) mmol/L Potassium 4.1 (3.4-5.1) mmol/L Chloride 109 H (98-107) mmol/L Carbon Dioxide 25 (22-32) mmol/L BUN 18 H (7-17) mg/dL Creatinine 0.98 (0.52-1.04) mg/dL Estimated GFR 53.9 L (>60) mL/min BUN/Creatinine Ratio 18.4 (6-22) Glucose 98 (80-110) mg/dL Calcium 9.0 (8.4-10.2) mg/dL Total Bilirubin 0.5 (0.2-1.3) mg/dL AST 25 (14-36) IU/L ALT 14 (<35) IU/L Alkaline Phosphatase 85 (38-126) U/L Total Protein 6.7 (6.3-8.2) g/dL Albumin 3.8 (3.5-5.0) g/dL Globulin 2.9 (1.7-4.1) g/dL Albumin/Globulin Ratio 1.3 (1.0-2.8) Procalcitonin 0.04 (<0.5) ng/mL Urine Color Urine Appearance Urine pH (4.5-8.0) Ur Specific Russell (1.000-1.035) Urine Protein (Negative) Urine Glucose (UA) (Negative) g/dL Urine Ketones (NEGATIVE) Urine Occult Blood (Negative) Urine Nitrate (Negative) Urine Bilirubin (NEGATIVE) Urine Urobilinogen (0.2) E.U./dL Ur Leukocyte Esterase (NEGATIVE) Urine RBC (0-5/HPF) Urine WBC (0-5/HPF) Ur Squamous Epith Cells (0-5/HPF) Urine Bacteria (None) Ur Culture Indicated? 01/14/21 01/14/21 Range/Units 15:08 15:21 WBC (4.5-11.0) X10^3/uL RBC (4.0-5.2) X10^6/uL Hgb (12.0-16.0) g/dL Hct (36-46) % MCV (80-100) fL MCH (26-34) PG MCHC (30-36) % RDW (11.6-14.8) % Plt Count (150-400) X10^3/uL Neut % (Auto) (50-75) % Lymph % (Auto) (25-40) % Buchanan % (Auto) (3-14) % Eos % (Auto) (2-4) % Baso % (Auto) (0-2) % Neut # (Auto) (9530-6928) /uL Lymph # (Auto) (1628-2944) /uL Buchanan # (Auto) (0-900) /uL Eos # (Auto) (0-450) /uL Baso # (Auto) (0-100) /uL PT (10.1-12.7) SECONDS INR (0.9-1.3) APTT 45 H (26.4-36.2) SECONDS Sodium (137-145) mmol/L Potassium (3.4-5.1) mmol/L Chloride (98-107) mmol/L Carbon Dioxide (22-32) mmol/L BUN (7-17) mg/dL Creatinine (0.52-1.04) mg/dL Estimated GFR (>60) mL/min BUN/Creatinine Ratio (6-22) Glucose (80-110) mg/dL Calcium (8.4-10.2) mg/dL Total Bilirubin (0.2-1.3) mg/dL AST (14-36) IU/L ALT (<35) IU/L Alkaline Phosphatase (38-126) U/L Total Protein (6.3-8.2) g/dL Albumin (3.5-5.0) g/dL Globulin (1.7-4.1) g/dL Albumin/Globulin Ratio (1.0-2.8) Procalcitonin (<0.5) ng/mL Urine Color Yellow Urine Appearance Clear Urine pH 6.0 (4.5-8.0) Ur Specific Russell 1.015 (1.000-1.035) Urine Protein Negative (Negative) Urine Glucose (UA) Negative (Negative) g/dL Urine Ketones Negative (NEGATIVE) Urine Occult Blood Negative (Negative) Urine Nitrate Negative (Negative) Urine Bilirubin Negative (NEGATIVE) Urine Urobilinogen 0.2 (0.2) E.U./dL Ur Leukocyte Esterase 1+ H (NEGATIVE) Urine RBC None seen (0-5/HPF) Urine WBC 5-10/hpf H (0-5/HPF) Ur Squamous Epith Cells 1-5 /hpf (0-5/HPF) Urine Bacteria Few (2-10) H (None) Ur Culture Indicated? Specimen cultured MDM Narrative Medical decision making narrative: This is an 85-year-old female comes emergency department complaint of left lower extremity cellulitis. Patient has intermittently had cellulitis in both lower extremities over the past several decades. She has currently been following with wound care here locally for her right lower extremity. After discussion I discussed there may also be some chronic venous stasis changes involved but would not be inappropriate to change as her left lower extremity does has erythema and warmth. Patient's sister was able to confirm she has been taking ciprofloxacin orally and does not have any MRSA coverage. Patient has had MRSA according to her sister in the past. Patient's exam as well as vitals and labs are reassuring and she does not appear to be septic. Patient is comfortable returning home the plan to change her antibiotics for the short term and follow-up with wound care promptly. Patient was encouraged to return for any worsening symptoms. Discharge Plan Departure Patient Disposition: Home Clinical Impression: Cellulitis of leg Qualifiers: Laterality: left Qualified Code(s): L03.116 - Cellulitis of left lower limb Instructions: DI for Cellulitis -- Adult Activity Restrictions/Additional Instructions: Follow up with Dr. Springer from wound care. I would also recommend following up with your primary care physician Dr. Boo. Your labs and vital signs today do not reflect any signs of sepsis. Your INR today is 3.4 I would recommend changing your antibiotics at this time. You received the 1st dose here today. Prescription sent to [facility] in [place]. Please return for fevers, worsening redness, swelling or skin changes going up her leg or down into her foot, rapidly worsening pain, new chest pain, shortness of breath, or other new or concerning symptoms. Prescriptions: New clindamycin HCl 300 mg capsule 300 mg PO QID Qty: 40 RF: 0 No Action nystatin-triamcinolone 100,000-0.1 unit/gram-% ointment 1 applictn TOP BID Qty: 30 RF: 1 (DME) Handi Cap Placard Qty: 1 RF: 0 lisinopril 10 mg tablet 5 mg PO DAILY RF: 0 triamterene-hydrochlorothiazid [Dyazide] 37.5-25 mg capsule 2 cap PO QDAY Qty: 180 RF: 1 levothyroxine [Synthroid] 125 mcg tablet 125 mcg PO QAM Qty: 10 RF: 0 simvastatin 20 mg tablet See Rx Instructions .ROUTE .COMPLEX Qty: 90 RF: 3 (DME) handicap placard See Rx Instructions .Route .MEDSUPPLY Qty: 1 RF: 0 warfarin 5 mg tablet 5 mg PO DAILY RF: 0 metoprolol succinate 25 mg tablet extended release 24 hr 25 mg PO DAILY RF: 0 aspirin [Adult Aspirin Regimen] 81 mg tablet,delayed release (DR/EC) 81 mg PO DAILY RF: 0 loratadine [Allergy Relief (loratadine)] 10 mg tablet 10 mg PO DAILY RF: 0 clobetasol-emollient 0.05 % cream 1 applictn Topical 1-2XD PRN (Reason: vaginal irritation) RF: 0 multivitamin Tablet 0.5 tab PO QAM RF: 0 acetaminophen 500 mg Tablet 500 mg PO BID RF: 0 ascorbic acid (vitamin C) [Vitamin C] 500 mg Tablet 3 tab PO DAILY RF: 0 docusate sodium 100 mg Capsule 100 - 200 mg PO QPM RF: 0 psyllium husk [Metamucil] 0.4 gram Capsule 1 - 2 cap PO PRN PRN (Reason: Constipation) RF: 0 Vitamin B12+ Vitamin C 1 tab PO DAILY RF: 0 omega-3 fatty acids [Fish Oil Concentrate] 1,000 mg capsule 1,000 mg PO DAILY RF: 0 Referrals: Shanthi Boo DO [Primary Care Provider] -
[2021-01-14 15:15] LABS: Add Manual Diff / Slide Review NO; Basophils Absolute Auto 100 /uL (0-100); Basophils Percent Auto 1.3 % (0-2); Eosinophils Absolute Auto 700 /uL (0-450); Eosinophils Percent Auto 11.9 % (2-4); Hematocrit 41.5 % (36-46); Hemoglobin 13.6 g/dL (12.0-16.0); Lymphocytes Absolute Auto 1000 /uL (1100-4500); Lymphocytes Percent Auto 16.7 % (25-40); Mean Corpuscular HGB Conc 32.7 % (30-36); Mean Corpuscular Hemoglobin 31.2 PG (26-34); Mean Corpuscular Volume 95.4 fL (80-100); Monocytes Absolute Auto 400 /uL (0-900); Monocytes Percent Auto 7.3 % (3-14); Neutrophils Absolute Auto 3900 /uL (1500-7000); Neutrophils Percent Auto 62.8 % (50-75); Platelet Count 157 X10^3/uL (150-400); Red Blood Cell Count 4.35 X10^6/uL (4.0-5.2); Red Cell Distribution Width 14.8 % (11.6-14.8); White Blood Cell Count 6.1 X10^3/uL (4.5-11.0)
[2021-01-14 15:21] LABS: INR 3.4 (0.9-1.3); Prothrombin Time 39.7 SECONDS (10.1-12.7)
[2021-01-14 15:24] LABS: RBC Urine None Seen (0-5/HPF)
[2021-01-14 15:25] LABS: Appearance Urine UA CLEAR; Bilirubin Urine UA NEGATIVE (NEGATIVE); Color Urine UA YELLOW; Glucose Urine UA NEGATIVE (Negative); Ketones Urine UA NEGATIVE (NEGATIVE); Leukocyte Esterase Urine UA 1+ (NEGATIVE); Nitrite Urine UA NEGATIVE (Negative); Occult Blood Urine UA NEGATIVE (Negative); Protein Urine UA NEGATIVE (Negative); Specific Gravity Urine UA 1.015 (1.000-1.035); Urobilinogen Urine UA 0.2 E.U./dL (0.2)
[2021-01-14 15:26] LABS: Alanine Aminotransferase 14 IU/L (<35); Albumin 3.8 g/dL (3.5-5.0); Albumin Globulin Ratio 1.3 (1.0-2.8); Alkaline Phosphatase 85 U/L (38-126); Aspartate Aminotransferase 25 IU/L (14-36); BUN Creatinine Ratio 18.4 (6-22); Bilirubin Total 0.5 mg/dL (0.2-1.3); Blood Urea Nitrogen 18 mg/dL (7-17); Carbon Dioxide 25 mmol/L (22-32); Chloride 109 mmol/L (98-107); Estimated Glomerular Filt Rate 53.9 mL/min (>60); Globulin 2.9 g/dL (1.7-4.1); Glucose 98 mg/dL (80-110); HEMOLYSIS 17 (0-50); Potassium 4.1 mmol/L (3.4-5.1); Sodium 140 mmol/L (137-145); Total Protein 6.7 g/dL (6.3-8.2)
[2021-01-14 15:29] LABS: PTT Partial Thromboplastin Tim 45 SECONDS (26.4-36.2)
[2021-01-14 15:36] LABS: Squamous Epithelial Cell Urine 1-5 /HPF (0-5/HPF); WBC Urine 5-10/HPF (0-5/HPF)
[2021-01-14 15:37] LABS: Bacteria Urine Few (2-10); Culture Indicated Urine Specimen Cultured
[2021-01-14] MEDS: CLINDAMYCIN 600 MG/50 ML PIGGYBACK 50 MG IV (15:41)
[2021-01-14 15:43] LABS: Procalcitonin 0.04 ng/mL (<0.5)
== END 2021-01-14 17:16 | disposition home or self-care (01) ==
PROVIDERS: Emergency Provider Emergency Medicine; Family Provider Internal Medicine Interventional Cardiology; PCP Family Medicine
DX: L03.116 Cellulitis of left lower limb (principal)
CPT/HCPCS: 36415; 80053; 81001; 84145; 85025; 85610; 85730; 87040; 87086; 96365; 99284

== ENCOUNTER → 2021-01-22 10:25 | Outpatient (CLI) | payer MEDICARE, OTHER, SELFPAY | PROVIDERS: Family Provider Internal Medicine Interventional Cardiology; PCP Family Medicine; Referring Provider Family Medicine; Visit Provider Family Medicine | DX: I87.2 Venous insufficiency (chronic) (peripheral) (principal); L97.811 Non-pressure chronic ulcer of other part of right lower leg limited to breakdown of skin; R60.0 Localized edema; Z79.01 Long term (current) use of anticoagulants; B35.4 Tinea corporis | CPT/HCPCS: 87070; 87075; 87205; 99213; 99214 ==

== ENCOUNTER → 2021-02-07 09:51 | Outpatient (CLI) | payer MEDICARE, OTHER, SELFPAY | PROVIDERS: Family Provider Internal Medicine Interventional Cardiology; PCP Family Medicine; Referring Provider Family Medicine; Visit Provider Family Medicine | DX: I87.2 Venous insufficiency (chronic) (peripheral) (principal); L97.811 Non-pressure chronic ulcer of other part of right lower leg limited to breakdown of skin; R60.0 Localized edema; L29.8 Other pruritus | CPT/HCPCS: 97597; 99212 ==

== ENCOUNTER → 2021-02-21 14:01 | Outpatient (CLI) | payer MEDICARE, OTHER, SELFPAY | PROVIDERS: Family Provider Internal Medicine Interventional Cardiology; PCP Family Medicine; Referring Provider Family Medicine; Visit Provider Family Medicine | DX: I87.2 Venous insufficiency (chronic) (peripheral) (principal); R60.0 Localized edema | CPT/HCPCS: 99212; 99213 ==

== ENCOUNTER 2021-03-29 02:45 | Emergency (ER) | payer MEDICARE, OTHER, SELFPAY ==
[2021-03-29] VITALS (8 sets, daily range): BP systolic 147–184; BP diastolic 66–79; PULSE 68–84; RESP 18; TEMP 36.6; O2SAT 92–99
--- NOTE | 2021-03-29 02:57 | DI.RAD.S_ITS ---
PROCEDURE: XR CHEST 1V INDICATIONS: nausea, felt lightheaded. TECHNIQUE: One view of the chest was acquired. COMPARISON: [facility], CR, XR CHEST 1V, 12/23/2019, 13:48. FINDINGS: Surgical changes and devices: None. Lungs and pleura: Increased interstitial prominence. No pleural effusions or pneumothorax. Mediastinum: Mediastinal contours appear normal. Heart size is normal. Bones and chest wall: No suspicious bony lesions. Overlying soft tissues appear unremarkable. IMPRESSION: Interstitial prominence which could represent chronic lung disease, pulmonary edema or atypical pneumonia. Dictated by: Florence Betancourt MD, PhD on 03/29/2021 at 7:54 Approved by: Florence Betancourt MD, PhD on 03/29/2021 at 7:54
--- NOTE | 2021-03-29 03:02 | ED.NAVMDI ---
HPI - Nausea/Vomiting/Diarrhea General Chief complaint: Shortness of Breath/Dyspnea Stated complaint: nausea Time Seen by Provider: 03/29/21 02:57 Source: patient Mode of arrival: EMS Limitations: no limitations History of Present Illness HPI Narrative: This is an 86-year-old female comes emergency department with complaint of onset of nausea, lightheadedness. Patient was at home she states she has had a lot of anxiety in terms of financial stressors lately. She is typically up at 3 or 4:00 a.m. in the morning watching TV. She states she started to feel slightly nauseated and lightheaded. She did not have any syncope. She denies any chest pain or pressure. She did feel a little short of breath. She denies any vomiting. She denies any abdominal pain. She denies any back or flank pain. No urinary symptoms. No other GI symptoms noted. She has some chronic lower extremity swelling with slight redness in bilateral lower extremities. Patient does have prior history of TAVR, hypertension, dyslipidemia, hypothyroidism and chronic cellulitis in her lower extremities. Patient states she is on warfarin daily. Her TAVR was placed in December of 2019. She denies any other prior medical issues. She does not have any prior cardiac stents or CABG. She denies any other surgeries. She is allergic to codeine and morphine which make her nauseated have vomiting. No tobacco. She has an alcoholic drink once or twice weekly. No recreational drugs. Her primary care is Alisa Boo. She follows with cardiology in [place] but used to see Dr. Fabian. Related Data Home Medications Medication Instructions Recorded Confirmed Vitamin B12+ Vitamin C 1 tab PO DAILY 02/19/18 11/15/20 acetaminophen 500 mg tablet 500 mg PO BID 02/19/18 11/15/20 ascorbic acid (vitamin C) 500 mg 3 tab PO DAILY 02/19/18 11/15/20 tablet (Vitamin C) clobetasol-emollient 0.05 % 1 applictn TOPICAL 1-2XD PRN 02/19/18 11/15/20 topical cream docusate sodium 100 mg capsule 100 - 200 mg PO QPM 02/19/18 11/15/20 multivitamin 0.5 tab PO QAM 02/19/18 11/15/20 psyllium husk 0.4 gram capsule 1 - 2 cap PO PRN PRN 02/19/18 11/15/20 (Metamucil) omega-3 fatty acids 1,000 mg 1,000 mg PO DAILY 02/08/19 11/15/20 capsule (Fish Oil Concentrate) aspirin 81 mg tablet,delayed 81 mg PO DAILY 02/02/20 11/15/20 release (Adult Aspirin Regimen) loratadine 10 mg tablet (Allergy 10 mg PO DAILY 02/02/20 11/15/20 Relief (loratadine)) metoprolol succinate 25 mg 25 mg PO DAILY tab 02/02/20 11/15/20 tablet,extended release 24 hr lisinopril 10 mg tablet 5 mg PO DAILY tab 03/22/20 11/15/20 warfarin 5 mg tablet 5 mg PO DAILY 12/26/20 Previous Rx's Medication Instructions Recorded nystatin-triamcinolone 100,000 1 applictn TOP BID #30 gram 03/30/19 unit/gram-0.1 % topical ointment Handi Cap Placard #1 ea 01/06/20 simvastatin 20 mg tablet See Rx Instructions .ROUTE 12/20/20 .COMPLEX #90 tab handicap placard #1 ea 12/25/20 clindamycin HCl 300 mg capsule 300 mg PO QID #40 cap 01/14/21 levothyroxine 125 mcg tablet See Rx Instructions .ROUTE 03/01/21 .COMPLEX #90 tab triamterene 37.5 See Rx Instructions .ROUTE 03/01/21 mg-hydrochlorothiazide 25 mg .COMPLEX #180 cap capsule amoxicillin 875 mg-potassium 1 tab PO Q12H #20 tab 03/29/21 clavulanate 125 mg tablet (Augmentin) Allergies Allergy/AdvReac Type Severity Reaction Status Date / Time codeine [CODEINE] Allergy Mild NAUSEA, Verified 11/15/20 15:28 VOMITING morphine [MORPHINE] Allergy Mild NAUSEA, Verified 11/15/20 15:28 VOMITING adhesive tape AdvReac Intermediate skin Verified 11/15/20 15:28 irritation ciprofloxacin [From CIPRO] AdvReac Intermediate Light Verified 11/15/20 15:28 headed Review of Systems Review of Systems ROS Unobtainable: All systems reviewed & are unremarkable except as noted in HPI and below Patient History Medical History Abnormal Pap smear of cervix Adrenal nodule Anal fissure Carotid artery plaque (~10/29/19) Cellulitis (~2006) Cellulitis of right leg Common cold Eczema Foot pain Heel pain Hemorrhoids History of frequent headaches Hyperlipidemia Hypertension (10/29/10) Hypothyroidism Lichen sclerosus Measles (~1945) Migraines Obstructive sleep apnea hypopnea, mild Peripheral vascular disease Plantar fasciitis 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) Shoulder pain Varicosities of leg Vision abnormalities Vitamin D deficiency Surgical History History of esophagogastroduodenoscopy (EGD) (05/13/17) S/P TAVR (transcatheter aortic valve replacement) Sigmoidoscopy performed Status post appendectomy Status post breast biopsy Status post colonoscopy (05/13/17) Status post sclerotherapy of varicose veins Family History Brother Heart disease Hypertension Father Heart disease Hypertension Heart attack Mother Osteoarthritis Sister Age: 83 Heart attack Heart disease Hypertension Brother Cancer Social History Smoking Status: Former smoker Smoking Status: Former smoker alcohol intake frequency: 0-2 drinks per day Substance Use Type: does not use Exam Narrative Exam Narrative: GENERAL: Alert and oriented x three, female in mild distress. HEENT: Head normocephalic, atraumatic, EOMI, pupils reactive, face symmetric, moist mucous membranes NECK: Supple, full range of motion CARDIOVASCULAR: Regular rate and rhythm without murmurs, rubs or gallops. RESPIRATORY: Breath sounds equal bilaterally, no wheezes rales or rhonchi. ABDOMEN: Soft, nontender. Normoactive bowel sounds all 4 quadrants. No guarding or rebound, rigidity, no mass : No CVA tenderness EXTREMITIES: Normal range of motion, no clubbing, mild bilateral lower extremity edema. Neurovascularly intact. Patient has faint erythema from the anterior shins towards the knees bilaterally. No warmth. Blanchable. NEUROLOGICAL: Cranial nerves II through XII grossly intact. Moving all extremities SKIN: Warm, dry, no petechiae, no rashes or lesions. Initial Vital Signs Initial Vital Signs: Vital Signs Temperature 97.9 F 03/29/21 02:46 Pulse Rate 84 03/29/21 02:46 Respiratory Rate 18 03/29/21 02:46 Blood Pressure 184/79 H 03/29/21 02:46 Pulse Oximetry 99 03/29/21 02:46 Course Orders Ordered: Discontinued Medications Amoxicillin/Clavulanate Potassium (Amoxicillin/Clav 875/125 Mg) 1 tab PO NOW ONE Stop: 03/29/21 05:49 Last Admin: 03/29/21 05:58 Dose: 1 tab Documented by: KAN Vital Signs Vital signs: Vital Signs - 8 hr 03/29/21 02:46 Temperature 97.9 F Pulse Rate 84 Respiratory Rate 18 Blood Pressure 184/79 H Pulse Oximetry 99 MDM - Nausea/Vomiting/Diarrhea Lab Data Result diagrams: 03/29/21 02:57 03/29/21 02:57 Labs: Lab Results 03/29/21 03/29/21 03/29/21 Range/Units 02:57 02:57 02:57 WBC 6.7 (4.5-11.0) X10^3/uL RBC 4.07 (4.0-5.2) X10^6/uL Hgb 12.7 (12.0-16.0) g/dL Hct 38.7 (36-46) % MCV 95.2 (80-100) fL MCH 31.2 (26-34) PG MCHC 32.8 (30-36) % RDW 14.5 (11.6-14.8) % Plt Count 165 (150-400) X10^3/uL Neut % (Auto) 62.2 (50-75) % Lymph % (Auto) 21.4 L (25-40) % [place] % (Auto) 11.1 (3-14) % Eos % (Auto) 4.2 H (2-4) % Baso % (Auto) 1.1 (0-2) % Neut # (Auto) 4200 (6630-4366) /uL Lymph # (Auto) 1400 (4216-8860) /uL [place] # (Auto) 700 (0-900) /uL Eos # (Auto) 300 (0-450) /uL Baso # (Auto) 100 (0-100) /uL PT 35.4 H (10.1-12.7) SECONDS INR 3.1 H (0.9-1.3) Sodium 140 (137-145) mmol/L Potassium 3.6 (3.4-5.1) mmol/L Chloride 105 (98-107) mmol/L Carbon Dioxide 28 (22-32) mmol/L BUN 24 H (7-17) mg/dL Creatinine 0.98 (0.52-1.04) mg/dL Estimated GFR 53.8 L (>60) mL/min BUN/Creatinine Ratio 24.5 H (6-22) Glucose 109 (80-110) mg/dL Calcium 9.3 (8.4-10.2) mg/dL Total Bilirubin 0.4 (0.2-1.3) mg/dL AST 28 (14-36) IU/L ALT 17 (<35) IU/L Alkaline Phosphatase 85 (38-126) U/L Total Creatine Kinase 49 (30-135) U/L CK-MB (CK-2) TNP CK-MB (CK-2) Rel Index TNP Troponin I < 0.012 (0.01-0.034) ng/mL NT-Pro-B Natriuret Pep 270 (<450) pg/mL Total Protein 6.9 (6.3-8.2) g/dL Albumin 4.2 (3.5-5.0) g/dL Globulin 2.7 (1.7-4.1) g/dL Albumin/Globulin Ratio 1.6 (1.0-2.8) Lipase 116 (23-300) U/L Urine RBC (0-5/HPF) Urine WBC (0-5/HPF) Urine Bacteria (None) Ur Culture Indicated? 03/29/21 03/29/21 Range/Units 04:40 05:00 WBC (4.5-11.0) X10^3/uL RBC (4.0-5.2) X10^6/uL Hgb (12.0-16.0) g/dL Hct (36-46) % MCV (80-100) fL MCH (26-34) PG MCHC (30-36) % RDW (11.6-14.8) % Plt Count (150-400) X10^3/uL Neut % (Auto) (50-75) % Lymph % (Auto) (25-40) % [place] % (Auto) (3-14) % Eos % (Auto) (2-4) % Baso % (Auto) (0-2) % Neut # (Auto) (6148-3607) /uL Lymph # (Auto) (0441-5268) /uL [place] # (Auto) (0-900) /uL Eos # (Auto) (0-450) /uL Baso # (Auto) (0-100) /uL PT (10.1-12.7) SECONDS INR (0.9-1.3) Sodium (137-145) mmol/L Potassium (3.4-5.1) mmol/L Chloride (98-107) mmol/L Carbon Dioxide (22-32) mmol/L BUN (7-17) mg/dL Creatinine (0.52-1.04) mg/dL Estimated GFR (>60) mL/min BUN/Creatinine Ratio (6-22) Glucose (80-110) mg/dL Calcium (8.4-10.2) mg/dL Total Bilirubin (0.2-1.3) mg/dL AST (14-36) IU/L ALT (<35) IU/L Alkaline Phosphatase (38-126) U/L Total Creatine Kinase (30-135) U/L CK-MB (CK-2) CK-MB (CK-2) Rel Index Troponin I < 0.012 (0.01-0.034) ng/mL NT-Pro-B Natriuret Pep (<450) pg/mL Total Protein (6.3-8.2) g/dL Albumin (3.5-5.0) g/dL Globulin (1.7-4.1) g/dL Albumin/Globulin Ratio (1.0-2.8) Lipase (23-300) U/L Urine RBC None seen (0-5/HPF) Urine WBC 0-1/hpf (0-5/HPF) Urine Bacteria Occasional (0-1) (None) Ur Culture Indicated? Specimen cultured Urine Dip Bedside Urine Glucose Negative Bedside Urine Bilirubin - Negative Bedside Urine Ketone - Negative Urine Specific [place] 1.015 Bedside Urine Occult Blood - Negative Bedside Urine pH 6 Bedside Urine Protein - Negative Bedside Urine Urobilinogen - Negative Bedside Urine Nitrite - Negative Bedside Urine Leukocytes +/- 15 Esterase Imaging Data Chest x-ray: Radiologist's Impression: Mildly prominent bilateral pulmonary linear markings probably incidental but cannot exclude slight pulmonary edema. The pneumonia less likely. ECG Data Attestation: I personally reviewed and interpreted this ECG as follows: Prior ECG tracings: available for review Interpretation: Sinus rhythm with first-degree AV block. Left axis deviation. Rate 81, DC 212, QRS of 108 QTC of 453. No acute ST changes. Patient has prior EKG from 12/23/2019 which appears similar. EKG 2., rate of 68 DC 210, QRS of 98 QTC of 433. No acute EKG changes noted. Patient has prior EKGs which appears similar. MDM Narrative Medical decision making narrative: This is a 86-year-old female with episode of nausea, which she describes as lot of anxiety, lightheadedness and nausea. Patient's EKGs and troponin are negative with no other acute lab abnormalities other than the leukocyte esterase and some urinary symptoms here in the department. Patient has had some frequency and had difficulty making it to the bathroom before she had to urinate. She has reassuring exam otherwise. Chest x-ray shows possible early change but she has negative bnp, with no other clear symptoms of fluid overload. At this time I would start patient on oral antibiotic for possible UTI. Patient on re-evaluation does note she has had a lot of urinary frequency. We reviewed her labs and findings today. She feels comfortable returning home. Will start her on an oral course of antibiotics. She states she typically gets constipated with antibiotics. She is on warfarin which limits her options somewhat. Discharge Plan Departure Patient Disposition: Home Clinical Impression: Nausea, Acute UTI Instructions: DI for Nausea -- Adult Activity Restrictions/Additional Instructions: You have been prescribed antibiotics for possible bladder infection. Please take this daily until gone. I would recommend eating yogurt or taking a probiotic while taking antibiotics. Prescription was sent to [facility]. Your INR today was 3.1. Your labs, EKG and chest x-ray do not show a clear cause of her symptoms otherwise but appear feeling worse please return. If you are having fevers accompanied chest pain, shortness of breath, passing out, persistent vomiting, new abdominal, back or flank pain, inability to urinate, black or bloody stools or other new or concerning symptoms. Prescriptions: New amoxicillin-pot clavulanate [Augmentin] 875-125 mg tablet 1 tab PO Q12H Qty: 20 RF: 0 No Action nystatin-triamcinolone 100,000-0.1 unit/gram-% ointment 1 applictn TOP BID Qty: 30 RF: 1 (DME) Handi Cap Placard Qty: 1 RF: 0 lisinopril 10 mg tablet 5 mg PO DAILY RF: 0 simvastatin 20 mg tablet See Rx Instructions .ROUTE .COMPLEX Qty: 90 RF: 3 (DME) handicap placard See Rx Instructions .Route .MEDSUPPLY Qty: 1 RF: 0 warfarin 5 mg tablet 5 mg PO DAILY RF: 0 levothyroxine 125 mcg tablet See Rx Instructions .ROUTE .COMPLEX Qty: 90 RF: 1 triamterene-hydrochlorothiazid 37.5-25 mg capsule See Rx Instructions .ROUTE .COMPLEX Qty: 180 RF: 1 metoprolol succinate 25 mg tablet extended release 24 hr 25 mg PO DAILY RF: 0 aspirin [Adult Aspirin Regimen] 81 mg tablet,delayed release (DR/EC) 81 mg PO DAILY RF: 0 loratadine [Allergy Relief (loratadine)] 10 mg tablet 10 mg PO DAILY RF: 0 clobetasol-emollient 0.05 % cream 1 applictn Topical 1-2XD PRN (Reason: vaginal irritation) RF: 0 multivitamin Tablet 0.5 tab PO QAM RF: 0 acetaminophen 500 mg Tablet 500 mg PO BID RF: 0 ascorbic acid (vitamin C) [Vitamin C] 500 mg Tablet 3 tab PO DAILY RF: 0 docusate sodium 100 mg Capsule 100 - 200 mg PO QPM RF: 0 psyllium husk [Metamucil] 0.4 gram Capsule 1 - 2 cap PO PRN PRN (Reason: Constipation) RF: 0 Vitamin B12+ Vitamin C 1 tab PO DAILY RF: 0 clindamycin HCl 300 mg capsule 300 mg PO QID Qty: 40 RF: 0 omega-3 fatty acids [Fish Oil Concentrate] 1,000 mg capsule 1,000 mg PO DAILY RF: 0 Referrals: Shanthi Boo DO [Primary Care Provider] -
[2021-03-29 03:07] LABS: Add Manual Diff / Slide Review NO; Basophils Absolute Auto 100 /uL (0-100); Basophils Percent Auto 1.1 % (0-2); Eosinophils Absolute Auto 300 /uL (0-450); Eosinophils Percent Auto 4.2 % (2-4); Hematocrit 38.7 % (36-46); Hemoglobin 12.7 g/dL (12.0-16.0); Lymphocytes Absolute Auto 1400 /uL (1100-4500); Lymphocytes Percent Auto 21.4 % (25-40); Mean Corpuscular HGB Conc 32.8 % (30-36); Mean Corpuscular Hemoglobin 31.2 PG (26-34); Mean Corpuscular Volume 95.2 fL (80-100); Monocytes Absolute Auto 700 /uL (0-900); Monocytes Percent Auto 11.1 % (3-14); Neutrophils Absolute Auto 4200 /uL (1500-7000); Neutrophils Percent Auto 62.2 % (50-75); Platelet Count 165 X10^3/uL (150-400); Red Blood Cell Count 4.07 X10^6/uL (4.0-5.2); Red Cell Distribution Width 14.5 % (11.6-14.8); White Blood Cell Count 6.7 X10^3/uL (4.5-11.0)
[2021-03-29 03:12] LABS: INR 3.1 (0.9-1.3); Prothrombin Time 35.4 SECONDS (10.1-12.7)
[2021-03-29 03:17] LABS: Alanine Aminotransferase 17 IU/L (<35); Albumin 4.2 g/dL (3.5-5.0); Albumin Globulin Ratio 1.6 (1.0-2.8); Alkaline Phosphatase 85 U/L (38-126); Aspartate Aminotransferase 28 IU/L (14-36); BUN Creatinine Ratio 24.5 (6-22); Bilirubin Total 0.4 mg/dL (0.2-1.3); Blood Urea Nitrogen 24 mg/dL (7-17); Calcium 9.3 mg/dL (8.4-10.2); Carbon Dioxide 28 mmol/L (22-32); Chloride 105 mmol/L (98-107); Creatine Kinase 49 U/L (30-135); Estimated Glomerular Filt Rate 53.8 mL/min (>60); Globulin 2.7 g/dL (1.7-4.1); Glucose 109 mg/dL (80-110); HEMOLYSIS < 15 (0-50); Lipase 116 U/L (23-300); Potassium 3.6 mmol/L (3.4-5.1); Sodium 140 mmol/L (137-145); Total Protein 6.9 g/dL (6.3-8.2)
[2021-03-29 03:29] LABS: NT-proBNP (BNP-Adult 18+) 270 pg/mL (<450); Troponin I < 0.012 ng/mL (0.01-0.034)
[2021-03-29 05:12] LABS: Bacteria Urine Occasional (0-1); Culture Indicated Urine Specimen Cultured; RBC Urine None Seen (0-5/HPF); WBC Urine 0-1/HPF (0-5/HPF)
[2021-03-29 05:40] LABS: Troponin I < 0.012 ng/mL (0.01-0.034)
[2021-03-29] MEDS: AMOXICILLIN/CLAV 875/125 MG 1 TAB PO (05:58)
== END 2021-03-29 04:10 | disposition home or self-care (01) ==
PROVIDERS: Emergency Provider Emergency Medicine; Family Provider Internal Medicine Interventional Cardiology; PCP Family Medicine
DX: N39.0 Urinary tract infection, site not specified (principal); R11.0 Nausea; R42 Dizziness and giddiness; F41.9 Anxiety disorder, unspecified
CPT/HCPCS: 36415; 71045; 80053; 81003; 81015; 82550; 83690; 83880; 84484; 85025; 85610; 87086; 93005; 93010; 99284

== ENCOUNTER → 2021-08-15 15:42 | Outpatient (CLI) | payer MEDICARE, OTHER, SELFPAY ==
[2021-08-15 16:45] LABS: BUN Creatinine Ratio 23.4 (6-22); Blood Urea Nitrogen 22 mg/dL (7-17); Calcium 8.8 mg/dL (8.4-10.2); Carbon Dioxide 24 mmol/L (22-32); Chloride 109 mmol/L (98-107); Estimated Glomerular Filt Rate 56.5 mL/min (>60); Glucose 97 mg/dL (80-110); HEMOLYSIS < 15 (0-50); Potassium 4.1 mmol/L (3.4-5.1); Sodium 139 mmol/L (137-145)
[2021-08-15 18:27] LABS: Appearance Urine UA CLOUDY; Bilirubin Urine UA NEGATIVE (NEGATIVE); Color Urine UA YELLOW; Glucose Urine UA NEGATIVE (Negative); Ketones Urine UA NEGATIVE (NEGATIVE); Leukocyte Esterase Urine UA 2+ (NEGATIVE); Nitrite Urine UA NEGATIVE (Negative); Occult Blood Urine UA 1+ (Negative); Protein Urine UA TRACE (Negative); Urobilinogen Urine UA 0.2 E.U./dL (0.2)
[2021-08-15 18:32] LABS: pH Urine UA 5.5 (4.5-8.0)
[2021-08-15 18:44] LABS: Bacteria Urine Moderate (10-30); Culture Indicated Urine Specimen Cultured; RBC Urine 1-5/HPF (0-5/HPF); WBC Urine 5-10/HPF (0-5/HPF)
== END ==
PROVIDERS: Family Provider Internal Medicine Interventional Cardiology; Referring Provider Physician Assistant; Visit Provider Physician Assistant
DX: R35.0 Frequency of micturition (principal); Z87.440 Personal history of urinary (tract) infections; Z51.81 Encounter for therapeutic drug level monitoring; Z79.899 Other long term (current) drug therapy
CPT/HCPCS: 36415; 80048; 81001; 87086

== ENCOUNTER → 2021-08-28 11:55 | Outpatient (CLI) | payer MEDICARE, OTHER, SELFPAY ==
[2021-08-28 13:38] LABS: BUN Creatinine Ratio 16.3 (6-22); Blood Urea Nitrogen 15 mg/dL (7-17); Calcium 8.5 mg/dL (8.4-10.2); Carbon Dioxide 25 mmol/L (22-32); Chloride 113 mmol/L (98-107); Estimated Glomerular Filt Rate 57.9 mL/min (>60); Glucose 118 mg/dL (80-110); HEMOLYSIS < 15 (0-50); Sodium 144 mmol/L (137-145)
== END ==
PROVIDERS: Family Provider Internal Medicine Interventional Cardiology; Referring Provider Physician Assistant; Visit Provider Physician Assistant
DX: Z51.81 Encounter for therapeutic drug level monitoring (principal); Z79.899 Other long term (current) drug therapy; R79.89 Other specified abnormal findings of blood chemistry
CPT/HCPCS: 36415; 80048

== ENCOUNTER → 2021-12-22 11:25 | Outpatient (CLI) | payer MEDICARE, OTHER, SELFPAY ==
--- NOTE | 2021-12-22 11:29 | DI.MRI.S_ITS ---
PROCEDURE: MR ABDOMEN WO CON INDICATIONS: f/u adrenal nodule TECHNIQUE: Coronal HASTE, axial 2-D FLASH in- and [id number] with subtractions from the hepatic dome to the iliac crests. COMPARISON: [facility], CT, CT ABDOMEN WO/W CON, 12/10/2019, 9:33. [facility], MR, MR ABDOMEN WO CON, 05/26/2020, 15:43. [facility], MR, MR ABDOMEN WO CON, 11/22/2020, 11:20. FINDINGS: Image quality: Excellent. Adrenal glands: Redemonstrated right adrenal nodule measuring 2.4 x 2.0 cm (series 9, image 57), not significantly changed since at least 2019 measuring 2.5 x 2.[address] with remeasured. As before, there is no definitive signal loss on chemical shift imaging to confirm an adenoma. No left adrenal nodule visualized. Other solid organs: Liver is normal in overall size. No gallstones are visualized. Biliary system is non dilated. Pancreas is normal in morphology. Spleen is normal in size. Both kidneys are normal in size, without hydronephrosis. A few cortical and renal sinus cysts are present, no imaging follow-up is necessary for this finding per consensus recommendations based on imaging criteria. Nodes and vessels: No retroperitoneal or mesenteric adenopathy by size criteria. Aorta and inferior vena cava are normal in size. Bowel and peritoneum: Unenhanced bowel loops are normal in caliber. No free fluid. Lung bases: No basal pleural effusions. Heart size is normal. Bones and soft tissues: Bone marrow is of normal overall signal. IMPRESSION: No significant change in the previously demonstrated right adrenal nodule. As before the nodule is indeterminate with signal characteristics not confirmatory of an adenoma. Given 2 year stability further imaging follow-up may not be necessary per ACR incidental findings guidelines. However, if clinically indicated further imaging followup could be obtained to ensure stability, with the interval at clinical discretion. If performed, noncontrast CT of the abdomen would likely be adequate. Dictated by: Kris Guerrero M.D. on 12/24/2021 at 9:47 Approved by: Kris Guerrero M.D. on 12/24/2021 at 10:07
== END ==
PROVIDERS: Family Provider Internal Medicine Interventional Cardiology; PCP Pediatrics; Referring Provider Pediatrics; Visit Provider Pediatrics
DX: E27.8 Other specified disorders of adrenal gland (principal)
CPT/HCPCS: 74181

== ENCOUNTER 2022-05-17 15:14 | Emergency (ER) | payer MEDICARE, OTHER, SELFPAY ==
[2022-05-17 15:35] VITALS: BP 137/60; PULSE 77; RESP 18; TEMP 36.6; O2SAT 99
== END 2022-05-17 20:50 | disposition left against medical advice (07) ==
PROVIDERS: Emergency Provider Emergency Medicine; Family Provider Internal Medicine Interventional Cardiology; PCP Family Medicine; Referring Provider Family Medicine
CPT/HCPCS: 99281

== ENCOUNTER → 2022-05-30 15:44 | Outpatient (CLI) | payer MEDICARE, OTHER, SELFPAY ==
[2022-05-30 17:52] LABS: Add Manual Diff / Slide Review NO; Basophils Absolute Auto 0 /uL (0-100); Basophils Percent Auto 0.7 % (0-2); Eosinophils Absolute Auto 100 /uL (0-450); Lymphocytes Absolute Auto 1000 /uL (1100-4500); Lymphocytes Percent Auto 20.6 % (25-40); Mean Corpuscular HGB Conc 28.9 % (30-36); Mean Corpuscular Volume 62.1 fL (80-100); Monocytes Absolute Auto 500 /uL (0-900); Monocytes Percent Auto 9.2 % (3-14); Neutrophils Absolute Auto 3400 /uL (1500-7000); Neutrophils Percent Auto 67.5 % (50-75); Platelet Count 247 X10^3/uL (150-400); Red Cell Distribution Width 19.4 % (11.6-14.8)
[2022-05-30 17:53] LABS: Prothrombin Time 60.1 SECONDS (10.1-12.7)
[2022-05-30 18:04] LABS: Alanine Aminotransferase 17 IU/L (<35); Albumin 3.8 g/dL (3.5-5.0); Albumin Globulin Ratio 1.6 (1.0-2.8); Alkaline Phosphatase 51 U/L (38-126); Amylase 65 U/L (30-110); Aspartate Aminotransferase 26 IU/L (14-36); BUN Creatinine Ratio 15.1 (6-22); Bilirubin Total 0.6 mg/dL (0.2-1.3); Blood Urea Nitrogen 13 mg/dL (7-17); Calcium 8.3 mg/dL (8.4-10.2); Carbon Dioxide 21 mmol/L (22-32); Chloride 111 mmol/L (98-107); Estimated Glomerular Filt Rate > 60 mL/min (>60); Globulin 2.4 g/dL (1.7-4.1); Glucose 97 mg/dL (80-110); HEMOLYSIS < 15 (0-50); Lipase 53 U/L (23-300); Potassium 3.6 mmol/L (3.4-5.1); Sodium 142 mmol/L (137-145); Total Protein 6.2 g/dL (6.3-8.2)
[2022-05-30 18:05] LABS: Hematocrit 16.7 % (36-46); Hemoglobin 4.8 g/dL (12.0-16.0)
[2022-05-30 18:21] LABS: Anisocytosis 2+; Hypochromasia 2+
[2022-05-30 18:22] LABS: Free T4, Direct Thyroxine 1.43 ng/dL (0.78-2.19); Target Cells 1+
[2022-05-30 18:23] LABS: Schistocytes 1+; Tear Drop Cells 1+
[2022-05-30 18:27] LABS: INR 5.1 (0.9-1.3)
[2022-05-30 18:32] LABS: Appearance Urine UA CLEAR; Bilirubin Urine UA NEGATIVE (NEGATIVE); Color Urine UA YELLOW; Glucose Urine UA NEGATIVE (Negative); Ketones Urine UA TRACE (NEGATIVE); Leukocyte Esterase Urine UA TRACE (NEGATIVE); Nitrite Urine UA NEGATIVE (Negative); Occult Blood Urine UA NEGATIVE (Negative); Protein Urine UA TRACE (Negative); Specific Gravity Urine UA 1.015 (1.000-1.035); Urobilinogen Urine UA 0.2 E.U./dL (0.2)
[2022-05-30 18:36] LABS: Creatinine Urine Random 150.1 mg/dL
[2022-05-30 18:36] LABS: Thyroid Stimulating Hormone 2.29 uIU/mL (0.47-4.68)
[2022-05-30 18:39] LABS: Microalbumi Creatinin Ratio Ur 40.6 ug/mg CR (<30); Microalbumin Urine Random 6.1 mg/dL (0-1.6)
[2022-05-30 18:55] LABS: Bacteria Urine Occasional (0-1); Culture Indicated Urine Specimen Cultured; Mucus Urine 1+ (Negative); RBC Urine None Seen (0-5/HPF); Squamous Epithelial Cell Urine 0-1 /HPF (0-5/HPF); WBC Urine 1-5/HPF (0-5/HPF)
== END ==
PROVIDERS: Pediatrics; Family Provider Internal Medicine Interventional Cardiology; PCP Family Medicine; Referring Provider Family Medicine; Visit Provider Family Medicine
DX: I50.30 Unspecified diastolic (congestive) heart failure; I11.0 Hypertensive heart disease with heart failure; R10.9 Unspecified abdominal pain
CPT/HCPCS: 36415; 80053; 81001; 82043; 82150; 82570; 83690; 84439; 84443; 85025; 85610; 87086

== ENCOUNTER → 2022-05-30 16:02 | Outpatient (CLI) | payer MEDICARE, OTHER, SELFPAY ==
--- NOTE | 2022-05-30 16:04 | DI.RAD.S_ITS ---
PROCEDURE: XR LUMBAR SPINE MIN 4V INDICATIONS: Evaluate and Treat TECHNIQUE: 5 views of the lumbar spine were acquired, including bilateral oblique views. COMPARISON: None. FINDINGS: Bones: 5 nonrib-bearing vertebrae are present. Mild right convexity curvature centered L2-L3. 10 mm anterolisthesis L4 on L5. Mild-moderate multilevel degenerative changes with disc height loss, endplate spurring, and facet arthropathy. No vertebral body compression fractures. No suspicious bony lesions. Soft tissues: Overlying bowel gas pattern is normal. Vascular calcifications are present. Oblique images: No pars defects are identified. IMPRESSION: Multilevel degenerative changes of the lumbar spine. Dictated by: Kris Guerrero M.D. on 05/31/2022 at 14:24 Approved by: Kris Guerrero M.D. on 05/31/2022 at 14:32
== END ==
PROVIDERS: Family Provider Internal Medicine Interventional Cardiology; PCP Family Medicine; Referring Provider Family Medicine; Visit Provider Family Medicine
DX: M47.816 Spondylosis without myelopathy or radiculopathy, lumbar region (principal); M54.9 Dorsalgia, unspecified; R10.9 Unspecified abdominal pain
CPT/HCPCS: 72110

== ENCOUNTER 2022-05-30 19:14 | Inpatient (IN) | payer MEDICARE, OTHER, SELFPAY ==
[2022-05-30] VITALS (12 sets, daily range): BP systolic 148–189; BP diastolic 65–77; PULSE 75–87; RESP 16–24; TEMP 36.2–36.4; O2SAT 96–100; BMI 30.2
[2022-05-30] MEDS: PANTOPRAZOLE 40 MG VIAL 80 MG IV (21:10)
[2022-05-30 21:19] LABS: Add Manual Diff / Slide Review NO; Basophils Absolute Auto 0 /uL (0-100); Eosinophils Absolute Auto 100 /uL (0-450); Eosinophils Percent Auto 2.4 % (2-4); Lymphocytes Absolute Auto 1200 /uL (1100-4500); Lymphocytes Percent Auto 27.4 % (25-40); Mean Corpuscular HGB Conc 28.9 % (30-36); Mean Corpuscular Hemoglobin 17.7 PG (26-34); Mean Corpuscular Volume 61.1 fL (80-100); Monocytes Absolute Auto 400 /uL (0-900); Neutrophils Absolute Auto 2700 /uL (1500-7000); Neutrophils Percent Auto 60.2 % (50-75); Platelet Count 231 X10^3/uL (150-400); Red Blood Cell Count 2.61 X10^6/uL (4.0-5.2); Red Cell Distribution Width 19.1 % (11.6-14.8); White Blood Cell Count 4.4 X10^3/uL (4.5-11.0)
[2022-05-30 21:22] LABS: Prothrombin Time 54.7 SECONDS (10.1-12.7)
[2022-05-30 21:24] LABS: Hemoglobin 4.6 g/dL (12.0-16.0)
[2022-05-30 21:25] LABS: Alanine Aminotransferase 16 IU/L (<35); Albumin 3.8 g/dL (3.5-5.0); Albumin Globulin Ratio 1.7 (1.0-2.8); Alkaline Phosphatase 53 U/L (38-126); Aspartate Aminotransferase 26 IU/L (14-36); BUN Creatinine Ratio 14.6 (6-22); Bilirubin Total 0.5 mg/dL (0.2-1.3); Blood Urea Nitrogen 12 mg/dL (7-17); Calcium 8.3 mg/dL (8.4-10.2); Carbon Dioxide 22 mmol/L (22-32); Chloride 112 mmol/L (98-107); Estimated Glomerular Filt Rate > 60 mL/min (>60); Globulin 2.3 g/dL (1.7-4.1); Glucose 96 mg/dL (80-110); HEMOLYSIS < 15 (0-50); PTT Partial Thromboplastin Tim 40 SECONDS (26-36); Potassium 3.7 mmol/L (3.4-5.1); Sodium 141 mmol/L (137-145); Total Protein 6.1 g/dL (6.3-8.2)
[2022-05-30 21:27] LABS: INR 4.7 (0.9-1.3)
--- NOTE | 2022-05-30 21:27 | ED.SOB ---
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 She is occasional epistaxis but states it is very small amounts. She denies any urinary symptoms. She has chronic swelling of her lower extremities but not worse than normal. She had her warfarin level checked with her pharmacist in [place] it was elevated she was told to contact her physician she had outpatient labs ordered which showed a hemoglobin of 4 and on repeat is still 4. Patient's renal function and electrolytes are appropriate, INR is 5 and 4.7 on recheck. Patient family note that she has had a EGD and colonoscopy in the past she was told there was something wrong with her stomach with Dr. Carter many years ago at [place]. Related Data Home Medications Medication Instructions Recorded Confirmed Vitamin B12+ Vitamin C 1 tab PO DAILY 02/19/18 05/30/22 acetaminophen 500 mg tablet 500 mg PO BID 02/19/18 05/31/22 ascorbic acid (vitamin C) 500 mg 3 tab PO DAILY 02/19/18 05/30/22 tablet (Vitamin C) clobetasol-emollient 0.05 % 1 applictn topical 1-2XD PRN 02/19/18 05/30/22 topical cream vaginal irritation aspirin 81 mg tablet,delayed 81 mg PO DAILY 02/02/20 05/30/22 release (Adult Aspirin Regimen) loratadine 10 mg tablet (Allergy 10 mg PO DAILY 02/02/20 05/30/22 Relief (loratadine)) metoprolol succinate 25 mg 25 mg PO DAILY 02/02/20 05/31/22 tablet,extended release 24 hr lisinopril 10 mg tablet 5 mg PO DAILY 03/22/20 05/30/22 diphenhydramine HCl 25 mg capsule 25 mg PO BEDTIME 09/12/21 05/30/22 (Allergy (diphenhydramine)) melatonin 5 mg chewable tablet 5 mg PO BEDTIME PRN 09/12/21 05/30/22 warfarin 5 mg tablet 2.5 mg PO DAILY 09/12/21 05/31/22 Previous Rx's Medication Instructions Recorded handicap placard #1 ea 12/25/20 triamterene 75 See Rx Instructions .Route 02/07/22 mg-hydrochlorothiazide 50 mg tablet .COMPLEX #90 tabs levothyroxine 125 mcg tablet 125 mcg PO DAILY #30 tabs 02/25/22 simvastatin 20 mg tablet See Rx Instructions .Route 05/17/22 .COMPLEX #90 tabs Allergies Allergy/AdvReac Type Severity Reaction Status Date / Time codeine [CODEINE] Allergy Mild NAUSEA, Verified 05/30/22 19:28 VOMITING morphine [MORPHINE] Allergy Mild NAUSEA, Verified 05/30/22 19:28 VOMITING adhesive tape AdvReac Intermediate skin Verified 05/30/22 19:28 irritation ciprofloxacin [From CIPRO] AdvReac Intermediate Light Verified 05/30/22 19:28 headed Review of Systems Review of Systems ROS Unobtainable: All systems reviewed & are unremarkable except as noted in HPI and below Patient History Medical History Abdominal pain Abnormal Pap smear of cervix Adrenal nodule Anal fissure Body mass index (BMI) of 30.0 to 39.9 (03/27/16) Carotid artery plaque (~10/29/19) Cellulitis (~2006) Cellulitis of right leg Cellulitis of right lower extremity without foot Chronic venous insufficiency (10/29/10) Common cold Eczema Foot pain Heel pain Hemorrhoids History of frequent headaches Hyperlipidemia Hypertension (10/29/10) Hypothyroidism Lichen sclerosus Measles (~194) Migraines Mild cognitive impairment (~11/2019) Obstructive sleep apnea hypopnea, mild Peripheral vascular disease Plantar fasciitis 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) Shoulder pain Varicosities of leg Vision abnormalities Vitamin D deficiency Surgical History History of esophagogastroduodenoscopy (EGD) (05/13/17) S/P TAVR (transcatheter aortic valve replacement) Sigmoidoscopy performed Status post appendectomy Status post breast biopsy Status post colonoscopy (05/13/17) Status post sclerotherapy of varicose veins Family History Brother Heart disease Hypertension Father Heart disease Hypertension Heart attack Mother Osteoarthritis Sister Age: 84 Heart attack Heart disease Hypertension Brother Cancer Social History household members: none Smoking Status: Former smoker alcohol intake: current Smoking Status: Former smoker alcohol intake frequency: 0-2 drinks per day Substance Use Type: does not use Exam Narrative Exam Narrative: GENERAL: Alert and oriented x three, elderly, pale female in mild distress HEENT: Head normocephalic, atraumatic, EOMI, pupils reactive, positive for conjunctival pallor, face symmetric, moist mucous membranes NECK: Supple, full range of motion CARDIOVASCULAR: Regular rate and rhythm without murmurs, rubs or gallops. Mild swelling bilateral lower extremities. RESPIRATORY: Breath sounds equal bilaterally, no wheezes rales or rhonchi. Mild crackles at base. ABDOMEN: Soft, nontender. Normoactive bowel sounds all 4 quadrants. No guarding or rebound, rigidity, no mass, stool occult is positive, stool itself is brown. : No CVA tenderness EXTREMITIES: Normal range of motion, no clubbing or edema. Neurovascularly intact NEUROLOGICAL: Cranial nerves II through XII grossly intact. Moving all extremities SKIN: Warm, dry, no petechiae, no rashes or lesions. Initial Vital Signs Initial Vital Signs: Vital Signs Temperature 97.2 F L 05/30/22 19:18 Pulse Rate 84 05/30/22 19:18 Respiratory Rate 20 05/30/22 19:18 Blood Pressure 151/65 H 05/30/22 19:18 Pulse Oximetry 99 05/30/22 19:18 Oxygen Delivery Method 05/30/22 19:18 Course Orders Ordered: Acetaminophen (Acetaminophen 325 Mg Tablet) 650 mg PO Q6H PRN PRN Reason: Fever/Mild Pain (1-3) Last Admin: 05/31/22 19:00 Dose: 650 mg Documented By: Admin: 05/31/22 12:14 Dose: 650 mg Documented By: Admin: 05/31/22 01:26 Dose: 650 mg Documented By: JENNIFER Atorvastatin Calcium (Atorvastatin 20 Mg Tablet) 10 mg PO BEDTIME DAPHNE Last Admin: 05/31/22 20:16 Dose: 10 mg Documented By: VENUS Levothyroxine Sodium (Levothyroxine 125 Mcg Tablet) 125 mcg PO 0600 [facility] Last Admin: 05/31/22 07:51 Dose: 125 mcg Documented By: Lisinopril (Lisinopril 10 Mg Tablet) 2.5 mg PO DAILY [facility] Last Admin: 05/31/22 10:38 Dose: 2.5 mg Documented By: Melatonin (Melatonin 3 Mg Tablet) 6 mg PO BEDTIME [facility] Last Admin: 05/31/22 20:15 Dose: 6 mg Documented By: Admin: 05/31/22 01:26 Dose: 6 mg Documented By: JENNIFER Metoprolol Succinate (Metoprolol Er 25 Mg Tablet) 25 mg PO DAILY [facility] Last Admin: 05/31/22 10:38 Dose: 25 mg Documented By: Naloxone HCl (Naloxone 0.4 Mg/Ml Vial) 0.2 mg IV Q2MIN PRN PRN Reason: Opiate Reversal Ondansetron HCl (Ondansetron 4 Mg/2 Ml Inj) 4 mg IV NOW PRN PRN Reason: Nausea And Vomiting Ondansetron HCl (Ondansetron 4 Mg Odt) 4 mg PO Q6HR PRN PRN Reason: Nausea And Vomiting Pantoprazole Sodium (Pantoprazole 40 Mg Vial) 40 mg IV BID [facility] Last Admin: 05/31/22 20:17 Dose: 40 mg Documented By: Admin: 05/31/22 10:37 Dose: 40 mg Documented By: Discontinued Medications Furosemide (Furosemide 40 Mg/4 Ml Vial) 40 mg IV NOW ONE Stop: 05/30/22 22:20 Last Admin: 05/31/22 02:06 Dose: 40 mg Documented By: JENNIFER Phytonadione 5 mg/ Sodium (Chloride) 100.5 mls @ 201 mls/hr IV NOW ONE Stop: 05/30/22 21:46 Last Infusion: 05/30/22 22:35 Dose: 0 mls/hr Documented By: Admin: 05/30/22 22:03 Dose: 201 mls/hr Documented By: JACQUES Influenza Virus Vaccine (Influenza Hd Vaccine 0.7 Ml Syringe) 0.7 ml IM .ONCE ONE Stop: 05/31/22 00:58 Last Admin: 05/31/22 23:22 Dose: Not Given Documented By: VENUS Non-Formulary Medication (Melatonin) 6 mg PO BEDTIME PRN PRN Reason: Insomnia Non-Formulary Medication (Simvastatin) 20 mg PO QPM DAPHNE Pantoprazole Sodium (Pantoprazole 40 Mg Vial) 80 mg IV NOW ONE Stop: 05/30/22 20:48 Last Admin: 05/30/22 21:10 Dose: 80 mg Documented By: JACQUES Potassium Chloride (Potassium Chloride 20 Meq Tab) 40 meq PO NOW ONE Stop: 05/31/22 11:20 Last Admin: 05/31/22 12:14 Dose: 40 meq Documented By: Vital Signs Vital signs: Vital Signs - 8 hr 05/30/22 19:18 05/30/22 21:00 05/30/22 21:11 Temperature 97.2 F L Pulse Rate 84 87 77 Respiratory Rate 20 18 24 Blood Pressure 151/65 H 157/67 H Pulse Oximetry 99 98 96 Oxygen Delivery Method Room Air Room Air Room Air 05/30/22 21:30 05/30/22 21:30 05/30/22 22:00 Temperature Pulse Rate 77 79 Respiratory Rate 21 22 Blood Pressure 166/69 H Pulse Oximetry 97 100 Oxygen Delivery Method Room Air Room Air MDM - SOB/Dyspnea Lab Data Result diagrams: 05/31/22 13:36 05/31/22 06:33 Labs: Lab Results 05/30/22 05/30/22 05/30/22 Range/Units 20:40 20:40 20:40 WBC 4.4 L (4.5-11.0) X10^3/uL RBC 2.61 L (4.0-5.2) X10^6/uL Hgb 4.6 L* (12.0-16.0) g/dL Hct 16.0 L* (36-46) % MCV 61.1 L (80-100) fL MCH 17.7 L (26-34) PG MCHC 28.9 L (30-36) % RDW 19.1 H (11.6-14.8) % Plt Count 231 (150-400) X10^3/uL Neut % (Auto) 60.2 (50-75) % Lymph % (Auto) 27.4 (25-40) % [place] % (Auto) 9.0 (3-14) % Eos % (Auto) 2.4 (2-4) % Baso % (Auto) 1.0 (0-2) % Neut # (Auto) 2700 (0734-4542) /uL Lymph # (Auto) 1200 (2594-9947) /uL [place] # (Auto) 400 (0-900) /uL Eos # (Auto) 100 (0-450) /uL Baso # (Auto) 0 (0-100) /uL RBC Morphology See below Hypochromasia 3+ H Anisocytosis 3+ H Microcytosis 1+ H Target Cells 2+ H Tear Drop Cells 1+ H PT 54.7 H D (10.1-12.7) SECONDS INR 4.7 H* (0.9-1.3) APTT 40 H (26-36) SECONDS Sodium 141 (137-145) mmol/L Potassium 3.7 (3.4-5.1) mmol/L Chloride 112 H (98-107) mmol/L Carbon Dioxide 22 (22-32) mmol/L BUN 12 (7-17) mg/dL Creatinine 0.82 (0.52-1.04) mg/dL Estimated GFR > 60 (>60) mL/min BUN/Creatinine Ratio 14.6 (6-22) Glucose 96 (80-110) mg/dL Calcium 8.3 L (8.4-10.2) mg/dL Total Bilirubin 0.5 (0.2-1.3) mg/dL AST 26 (14-36) IU/L ALT 16 (<35) IU/L Alkaline Phosphatase 53 (38-126) U/L Total Creatine Kinase (30-135) U/L CK-MB (CK-2) CK-MB (CK-2) Rel Index Troponin I (0.01-0.034) ng/mL NT-Pro-B Natriuret Pep (<450) pg/mL Total Protein 6.1 L (6.3-8.2) g/dL Albumin 3.8 (3.5-5.0) g/dL Globulin 2.3 (1.7-4.1) g/dL Albumin/Globulin Ratio 1.7 (1.0-2.8) SARS-CoV-2 (PCR) (Negative) Blood Type Antibody Screen Crossmatch 05/30/22 05/30/22 05/30/22 Range/Units 20:40 20:40 22:13 WBC (4.5-11.0) X10^3/uL RBC (4.0-5.2) X10^6/uL Hgb (12.0-16.0) g/dL Hct (36-46) % MCV (80-100) fL MCH (26-34) PG MCHC (30-36) % RDW (11.6-14.8) % Plt Count (150-400) X10^3/uL Neut % (Auto) (50-75) % Lymph % (Auto) (25-40) % [place] % (Auto) (3-14) % Eos % (Auto) (2-4) % Baso % (Auto) (0-2) % Neut # (Auto) (9540-7117) /uL Lymph # (Auto) (2738-2548) /uL [place] # (Auto) (0-900) /uL Eos # (Auto) (0-450) /uL Baso # (Auto) (0-100) /uL RBC Morphology Hypochromasia Anisocytosis Microcytosis Target Cells Tear Drop Cells PT (10.1-12.7) SECONDS INR (0.9-1.3) APTT (26-36) SECONDS Sodium (137-145) mmol/L Potassium (3.4-5.1) mmol/L Chloride (98-107) mmol/L Carbon Dioxide (22-32) mmol/L BUN (7-17) mg/dL Creatinine (0.52-1.04) mg/dL Estimated GFR (>60) mL/min BUN/Creatinine Ratio (6-22) Glucose (80-110) mg/dL Calcium (8.4-10.2) mg/dL Total Bilirubin (0.2-1.3) mg/dL AST (14-36) IU/L ALT (<35) IU/L Alkaline Phosphatase (38-126) U/L Total Creatine Kinase 28 L (30-135) U/L CK-MB (CK-2) TNP CK-MB (CK-2) Rel Index TNP Troponin I < 0.012 (0.01-0.034) ng/mL NT-Pro-B Natriuret Pep 1240 H (<450) pg/mL Total Protein (6.3-8.2) g/dL Albumin (3.5-5.0) g/dL Globulin (1.7-4.1) g/dL Albumin/Globulin Ratio (1.0-2.8) SARS-CoV-2 (PCR) Negative (Negative) Blood Type O Positive Antibody Screen Negative Crossmatch See Detail Point of Care Testing Stool Occult Blood Positive ECG Data Attestation: I personally reviewed and interpreted this ECG as follows: Interpretation: Normal sinus rhythm rate of 70 6p are 206 QRS of 92 and QTC of 438. No acute ST elevation depression noted. MDM Narrative Medical decision making narrative: This is an 87-year-old female hemoglobin for likely having longstanding GI bleed with an warfarin 5 today, patient labs are reconfirmed on recheck, her renal functions normal electrolytes, troponin is negative BNP slightly elevated. Patient is guaiac positive which is likely source and she notes that she had scope upper and lower and something was wrong with her stomach reportedly by the patient and her sister who is at bedside this was several years ago. Suspect she is had slow bleed over time as her vitals are quite stable. Plan to transfuse, give Lasix in between, vitamin K admit to the hospitalist who I have spoken with and consult with general surgery. Dr. Byrd, general surgery plan for scope likely tomorrow this following am. Critical Care Time Critical Care Time Critical Care Time: Yes Total Critical Care Time: 35 Attestation: The high probability of a clinically significant, sudden or life threatening deterioration of the [] system(s) required my full and direct attention, intervention and personal management. The aggregate critical care time was [] minutes. This time is in addition to time spent performing reported procedures but includes the following: [x] Data Review and interpretation [x] Patient assessment and monitoring of vital signs [x] Documentation [x] Medication orders and management Discharge Plan Departure Patient Disposition: Admitted As Inpatient Clinical Impression: Symptomatic anemia, GI bleed, Supratherapeutic INR Admit Date/Time: 05/30/22 22:31 Admit Provider: Ct Reyes
[2022-05-30 21:53] LABS: Creatine Kinase 28 U/L (30-135)
[2022-05-30 21:54] LABS: Anisocytosis 3+; Hypochromasia 3+
[2022-05-30 21:55] LABS: Tear Drop Cells 1+
[2022-05-30 21:56] LABS: Microcytosis 1+; Target Cells 2+
--- NOTE | 2022-05-30 22:00 | PC.NURSE ---
Stool occult done by Dr. Priest.
[2022-05-30] MEDS: PHYTONADIONE (VIT K1) 5 MG in SODIUM CHLORIDE 0.9% 100 ML 201 MG IV (22:03)
[2022-05-30 22:06] LABS: NT-proBNP (BNP-Adult 18+) 1240 pg/mL (<450); Troponin I < 0.012 ng/mL (0.01-0.034)
[2022-05-30 22:58] LABS: COVID19 -Nasal RAPID Negative (Negative)
--- NOTE | 2022-05-30 23:22 | PC.NURSE ---
Notified Dr. Priest of BP elevation greater than 20mmHG in first 15 minutes of blood transfusion, patient assessed and denies any distress including respiratory distress, pain, flushing, N/V, or swelling. Pt breathing even and unlabored, aaox3/3, speaking in full sentences, skin is pale, warm, and dry. Other vitals assessed and Dr. Priest approved to continue blood transfusion.
--- NOTE | 2022-05-30 23:58 | PC.NURSE ---
2402 this nurse transported this patient to the acute care floor room 221 with blood product running at 100ml/hr. SUSAN Mills assumed care of this patient at this time.
[2022-05-31] VITALS (18 sets, daily range): BP systolic 126–175; BP diastolic 47–71; PULSE 66–79; RESP 16–20; TEMP 36.2–37.2; O2SAT 92–97
--- NOTE | 2022-05-31 00:35 | P.HP_ITS ---
History of Present Illness History of Present Illness Date Patient Seen: 05/31/22 Time Patient Seen: 00:35 Chief complaint: Internal bleeding Narrative: Arina Seaman is a pleasant 87 y.o. female with a history of a TAVR 2 years ago and anticoagulated on warfarin, was checking her periodic INRs by her pharmacist. She states she has been feeling very fatigued, weak with a low appetite for the past 4-5 months. When she went in, they noticed her INRs kept increasing. She was directed to see her PCP and was seen by Dr. Myers who ordered bloodwork here at [facility] outpatient lab. She was found to have an INR of 4.7 and a hemoglobin and hematocrit of 4.6 and 16 respectively and was directed to the ED by their office. She did report to the emergency room provider that she had dark tarry stools but did not complain of any chest pain, palpitations, s hortness of breath other than being exercise intolerance, nausea vomiting, abdominal pain, dysuria, diarrhea or constipation, or any upper lower extremity peripheral neuropathy. She does state that she is unable to receive IV sticks in her left arm as that is the arm they attempted to deploy the TAVR and failed. She states a few years ago she had a colonoscopy in when she came to was informed that they had also performed an upper GI scope and found what she thought were ulcers. Lumbar spine x-ray was done in the ED however results are not published in [facility]. She was administered a one time dose of IV vitamin K to help reverse her INR. She is afebrile, blood pressure 148/72 heart rate 79 respiratory rate 18 oxygen saturation of 98% on room air she weighs 87.5 kg with a BMI of 30.2. WBC was 4.4 hemoglobin 4.6 hematocrit 16 she had a normal platelet count her INR was 4.7 chloride 112 calcium 8.3 BNP was 1240 she is O-positive blood type and COVID 19 PCR is negative. Patient History Medical History Abdominal pain Abnormal Pap smear of cervix Adrenal nodule Anal fissure Body mass index (BMI) of 30.0 to 39.9 (03/27/16) Carotid artery plaque (~10/29/19) Cellulitis (~2006) Cellulitis of right leg Cellulitis of right lower extremity without foot Chronic venous insufficiency (10/29/10) Common cold Eczema Foot pain Heel pain Hemorrhoids History of frequent headaches Hyperlipidemia Hypertension (10/29/10) Hypothyroidism Lichen sclerosus Measles (~1945) Migraines Mild cognitive impairment (~11/2019) Obstructive sleep apnea hypopnea, mild Peripheral vascular disease Plantar fasciitis 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) Shoulder pain Varicosities of leg Vision abnormalities Vitamin D deficiency Surgical History History of esophagogastroduodenoscopy (EGD) (05/13/17) S/P TAVR (transcatheter aortic valve replacement) Sigmoidoscopy performed Status post appendectomy Status post breast biopsy Status post colonoscopy (05/13/17) Status post sclerotherapy of varicose veins Family & Social History Family History Brother Heart disease Hypertension Father Heart disease Hypertension Heart attack Mother Osteoarthritis Sister Age: 84 Heart attack Heart disease Hypertension Brother Cancer Safety & Behavioral: Feels Safe in Current Yes Environment Been Physically Hurt or No Threatened By a Person Tobacco & Substance use: Smoking Status Former smoker alcohol intake frequency 0-2 drinks per day Substance Use Type does not use Meds Home Medications and Allergies Home Medications Medication Instructions Recorded Confirmed Type Vitamin B12+ Vitamin C 1 tab PO DAILY 02/19/18 05/30/22 History acetaminophen 500 mg tablet 500 mg PO BID 02/19/18 05/30/22 History ascorbic acid (vitamin C) 500 mg 3 tab PO DAILY 02/19/18 05/30/22 History tablet (Vitamin C) clobetasol-emollient 0.05 % 1 applictn topical 1-2XD PRN 02/19/18 05/30/22 History topical cream vaginal irritation aspirin 81 mg tablet,delayed 81 mg PO DAILY 02/02/20 05/30/22 History release (Adult Aspirin Regimen) loratadine 10 mg tablet (Allergy 10 mg PO DAILY 02/02/20 05/30/22 History Relief (loratadine)) metoprolol succinate 25 mg 25 mg PO DAILY 02/02/20 05/30/22 History tablet,extended release 24 hr lisinopril 10 mg tablet 5 mg PO DAILY 03/22/20 05/30/22 History handicap placard #1 ea 12/25/20 05/30/22 Rx diphenhydramine HCl 25 mg capsule 25 mg PO BEDTIME 09/12/21 05/30/22 History (Allergy (diphenhydramine)) melatonin 5 mg chewable tablet 5 mg PO BEDTIME PRN 09/12/21 05/30/22 History warfarin 5 mg tablet 2.5 mg PO DAILY 09/12/21 05/30/22 History triamterene 75 See Rx Instructions .Route 02/07/22 05/30/22 Rx mg-hydrochlorothiazide 50 mg tablet .COMPLEX #90 tabs levothyroxine 125 mcg tablet 125 mcg PO DAILY #30 tabs 02/25/22 05/30/22 Rx simvastatin 20 mg tablet See Rx Instructions .Route 05/17/22 05/30/22 Rx .COMPLEX #90 tabs Allergies Allergy/AdvReac Type Severity Reaction Status Date / Time codeine [CODEINE] Allergy Mild NAUSEA, Verified 05/30/22 19:28 VOMITING morphine [MORPHINE] Allergy Mild NAUSEA, Verified 05/30/22 19:28 VOMITING adhesive tape AdvReac Intermediate skin Verified 05/30/22 19:28 irritation ciprofloxacin [From CIPRO] AdvReac Intermediate Light Verified 05/30/22 19:28 headed Review of Systems Review of Systems ROS: Yes All systems reviewed with the patient and are negative except as otherwise documented Exam Vital Signs (past 8 hours): - 05/30/22 19:18 05/30/22 21:00 05/30/22 21:11 Temperature 97.2 F L Pulse Rate 84 87 77 Respiratory Rate 20 18 24 Blood Pressure 151/65 H 157/67 H Pulse Oximetry 99 98 96 Oxygen Delivery Method Room Air Room Air Room Air 05/30/22 21:30 05/30/22 21:30 05/30/22 22:00 Temperature Pulse Rate 77 79 Respiratory Rate 21 22 Blood Pressure 166/69 H Pulse Oximetry 97 100 Oxygen Delivery Method Room Air Room Air 05/30/22 22:44 05/30/22 22:30 05/30/22 22:44 Temperature 97.6 F Pulse Rate 79 77 Respiratory Rate 19 18 Blood Pressure 189/77 H 189/77 H Pulse Oximetry 98 Oxygen Delivery Method Room Air 05/30/22 22:44 05/30/22 23:04 05/30/22 23:00 Temperature 97.6 F Pulse Rate 79 75 80 Respiratory Rate 18 18 18 Blood Pressure 166/72 H Pulse Oximetry 99 98 Oxygen Delivery Method Room Air Room Air 05/30/22 23:08 05/30/22 23:08 05/30/22 23:10 Temperature Pulse Rate 76 Respiratory Rate 16 Blood Pressure 166/72 H 164/71 H Pulse Oximetry 97 Oxygen Delivery Method Room Air 05/30/22 23:10 Temperature Pulse Rate 76 Respiratory Rate 21 Blood Pressure Pulse Oximetry 98 Oxygen Delivery Method Room Air Oxygen Delivery Method Room Air Narrative Exam Narrative: Gen: Alert, oriented, well-developed 87 y.o. female, appears younger than stated age HEENT: normocephalic, atraumatic, conjunctiva clear, sclera non-icteric, oral mucosa pink and moist Neck: supple, full ROM, no JVD, trachea is midline Resp: Lungs CTA, non-labored breathing CV: RRR, grade 2 of 6 systolic murmur, no mechanical clicks appreciated Abd: soft, non-tender, normoactive BTs Skin: Very pale no lesions or rashes, dry and intact Neuro: Alert and oriented X 4 w/no focal deficits. Speech clear and coherent. Extremities: moves all 4 extremities, is ambulatory, negative Gege?s sign Psyche: normal mood and affect. Objective Labs Result Diagrams: 05/30/22 20:40 05/30/22 20:40 Labs: Laboratory Results - last 24 hr 05/30/22 05/30/22 05/30/22 20:40 20:40 20:40 WBC 4.4 L RBC 2.61 L Hgb 4.6 L* Hct 16.0 L* MCV 61.1 L MCH 17.7 L MCHC 28.9 L RDW 19.1 H Plt Count 231 Neut % (Auto) 60.2 Lymph % (Auto) 27.4 [place] % (Auto) 9.0 Eos % (Auto) 2.4 Baso % (Auto) 1.0 Neut # (Auto) 2700 Lymph # (Auto) 1200 [place] # (Auto) 400 Eos # (Auto) 100 Baso # (Auto) 0 RBC Morphology See below Hypochromasia 3+ H Anisocytosis 3+ H Microcytosis 1+ H Target Cells 2+ H Tear Drop Cells 1+ H PT 54.7 H D INR 4.7 H* APTT 40 H Sodium 141 Potassium 3.7 Chloride 112 H Carbon Dioxide 22 BUN 12 Creatinine 0.82 Estimated GFR > 60 BUN/Creatinine Ratio 14.6 Glucose 96 Calcium 8.3 L Total Bilirubin 0.5 AST 26 ALT 16 Alkaline Phosphatase 53 Total Creatine Kinase CK-MB (CK-2) CK-MB (CK-2) Rel Index Troponin I NT-Pro-B Natriuret Pep Total Protein 6.1 L Albumin 3.8 Globulin 2.3 Albumin/Globulin Ratio 1.7 SARS-CoV-2 (PCR) Blood Type Antibody Screen Crossmatch 05/30/22 05/30/22 05/30/22 20:40 20:40 22:13 WBC RBC Hgb Hct MCV MCH MCHC RDW Plt Count Neut % (Auto) Lymph % (Auto) [place] % (Auto) Eos % (Auto) Baso % (Auto) Neut # (Auto) Lymph # (Auto) [place] # (Auto) Eos # (Auto) Baso # (Auto) RBC Morphology Hypochromasia Anisocytosis Microcytosis Target Cells Tear Drop Cells PT INR APTT Sodium Potassium Chloride Carbon Dioxide BUN Creatinine Estimated GFR BUN/Creatinine Ratio Glucose Calcium Total Bilirubin AST ALT Alkaline Phosphatase Total Creatine Kinase 28 L CK-MB (CK-2) TNP CK-MB (CK-2) Rel Index TNP Troponin I < 0.012 NT-Pro-B Natriuret Pep 1240 H Total Protein Albumin Globulin Albumin/Globulin Ratio SARS-CoV-2 (PCR) Negative Blood Type O Positive Antibody Screen Negative Crossmatch See Detail Assessment & Plan Assessment & Plan narrative: Arina Seaman is admitted for treatment of symptomatic anemia and a presumed upper GI bleed. Symptomatic anemia, acute, present on admission * She was ordered for 2 units PRBC with IV Lasix in between the 2 units. She is completing a 1st unit * CBC to be rechecked at her normal 5:00 a.m. labs Suspected upper GI bleed, history of such * Dr. Byrd is consulting on the case and plans to do an EGD in the morning * She is NPO after midnight Supratherapeutic INR, present on admission * Her INR was 4.7, warfarin will be held as well as pharmacological VTE prophylaxis * Received a one-time dose of IV Vitamin K in the ED. * She is anticoagulated for the TVAR Mild Acute on chronic CHF exacerbation, present on admission * Patient has existing diagnosis of chronic diastolic CHF with preserved ejection fraction, with an LVEF of 55% echo in 2020. Chads Vasc score of 6 * BNP was elevated at 1240 * She will was saline locked and Lasix provided as needed * She will receive a 1 time dose of IV Lasix between the 2 units of blood product to prevent volume overload. * She normally takes triamterene 75/hydrochlorothiazide 50 mg tablets daily CAD, chronic * Continue home dose of metoprolol ER 25 mg po bid * Continue atorvastatin 10 mg po daily Essential hypertension, chronic * Continue home dose of lisinopril 2.5 mg po daily Hypothyroidism, chronic * Continue home dose of levothyroxine 125 mcg daily VTE Prophylaxis: Wells risk score 0 [X] Bilateral SCDs Pharmacological VTE prophylaxis contraindicated in the setting of a suspected upper GI bleed Patient is admitted to the inpatient service due to the severity of disease, risks of further disease progression and this stay is expected to exceed 2 midnights. FEN: IV fluids: saline lock, diet: NPO, labs: CBC, C/BMP, liver enzymes, Mag, PT/INR Consultants Dr. Byrd, General Surgery care and involvement in the patient?s care is appreciated. Dispo: Likely home, patient is independent Code status: as discussed with the patient who identifies her sisterJulia as her surrogate and POA. [X] I have utilized all available immediate resources to obtain, update, or review of the patient's current medications VTE Deep Vein Thrombosis/Pulmonary Embolism Present on Admission: No MIPS - Admit I confirm the patient?s Advance Care Plan is present, Code status is documented, Surrogate decision maker is in patient?s record: Yes MIPS - DC The patient has current or prior documentation of left ventricular ejection fraction (LVEF) less than 40%, or moderate or severely depressed left ventricular systolic function.: No COVID-19 COVID-19 status: Negative Result date/Date tested (Pos, Neg/Pending): 05/30/22 Scores CHADS-VASc Congestive heart failure: yes Hypertension: yes Age 75 years or older: yes Diabetes mellitus: no Stroke, TIA, or TE: no Vascular disease: yes Age 65 to 74 years: no Sex category (female): Female CHADS-VASc Score: 6
[2022-05-31] MEDS: ACETAMINOPHEN 325 MG TABLET 650 MG PO ×3 (01:26→19:00)
[2022-05-31] MEDS: MELATONIN 3 MG TABLET 6 MG PO ×2 (01:26→20:15)
[2022-05-31] MEDS: FUROSEMIDE 40 MG/4 ML VIAL IV (02:06)
[2022-05-31 06:48] LABS: Basophils Absolute Auto 0 /uL (0-100); Eosinophils Absolute Auto 200 /uL (0-450); Eosinophils Percent Auto 4.3 % (2-4); Hematocrit 23.7 % (36-46); Hemoglobin 7.4 g/dL (12.0-16.0); Lymphocytes Absolute Auto 1200 /uL (1100-4500); Lymphocytes Percent Auto 30.6 % (25-40); Mean Corpuscular HGB Conc 31.2 % (30-36); Mean Corpuscular Hemoglobin 21.2 PG (26-34); Monocytes Absolute Auto 400 /uL (0-900); Monocytes Percent Auto 8.8 % (3-14); Neutrophils Absolute Auto 2200 /uL (1500-7000); Neutrophils Percent Auto 55.3 % (50-75); Platelet Count 211 X10^3/uL (150-400); Red Blood Cell Count 3.48 X10^6/uL (4.0-5.2)
[2022-05-31 06:51] LABS: INR 1.9 (0.9-1.3); Prothrombin Time 22.5 SECONDS (10.1-12.7)
[2022-05-31 06:55] LABS: Add Manual Diff / Slide Review SLIDE REVIEW
[2022-05-31 06:57] LABS: Alanine Aminotransferase 17 IU/L (<35); Albumin 3.7 g/dL (3.5-5.0); Albumin Globulin Ratio 1.4 (1.0-2.8); Alkaline Phosphatase 52 U/L (38-126); Aspartate Aminotransferase 30 IU/L (14-36); BUN Creatinine Ratio 14.1 (6-22); Bilirubin Total 1.4 mg/dL (0.2-1.3); Blood Urea Nitrogen 11 mg/dL (7-17); Calcium 8.1 mg/dL (8.4-10.2); Carbon Dioxide 24 mmol/L (22-32); Chloride 109 mmol/L (98-107); Estimated Glomerular Filt Rate > 60 mL/min (>60); Globulin 2.6 g/dL (1.7-4.1); Glucose 96 mg/dL (80-110); HEMOLYSIS < 15 (0-50); Magnesium 2.1 mg/dL (1.6-2.3); Potassium 3.3 mmol/L (3.4-5.1); Sodium 141 mmol/L (137-145); Total Protein 6.3 g/dL (6.3-8.2)
[2022-05-31] MEDS: LEVOTHYROXINE 125 MCG TABLET PO (07:51)
[2022-05-31 08:23] LABS: Anisocytosis 3+; Microcytosis 2+; Poikilocytosis 2+
[2022-05-31 08:25] LABS: Hypochromasia 2+
[2022-05-31] MEDS: PANTOPRAZOLE 40 MG VIAL IV ×2 (10:37→20:17)
[2022-05-31] MEDS: METOPROLOL ER 25 MG TABLET PO (10:38)
[2022-05-31] MEDS: lisinopriL 10 MG TABLET 2.5 MG PO (10:38)
--- NOTE | 2022-05-31 11:08 | CM.DANOTE ---
DCP Assessment: Payor confirmed: Medicare & [employer] PCP confirmed: Fani Demarco MD Pt is a 87 y.o. F who presented to the ER with chief complaint of shortness of breath and dyspnea. Pt brought up to the AC unit for further management and evaluation of symptoms. Care team suspecting upper GI bleed. Pt needing EGD. DCP met with pt this morning to discuss discharge needs. Pt laying in bed. DCP introduced self and role. Pt lives alone in a condo in [place]. Pt states that she is independent at baseline and uses a cane occasionally when needed. Pt has two sisters. One is travelling to [place] today and another is coming up to be with pt. Pt denies any needs at this time. Pt aware that she will be here for another day or so for testing. White board updated and instructed to call. Pt thankful for discussion. P: Pt to have an EGD today. Unclear needs at this time. Awaiting further plan from team. Goal is to discharge home via sister POV. DCP to continue to follow. Scarlett Cole RN/ANAND Discharge Planning/Care Management CM Discharge Assessment Start: 05/31/22 11:07 Freq: Status: Active Protocol: Document 05/31/22 11:07 YOBANY (Rec: 05/31/22 11:08 YOBANY [id number]) Discharge Planning Assessment Assigned Line Fisher Scarlett Cole RN/ANAND Advance Directives? No History Provided By Patient Prior Living Arrangements Apartment/Condo Household Members none Type of transporation used prior to Drives own vehicle admit Independent with ADL's Yes Is patient alert and oriented? Yes Caregiver for Another No DME Already Rented / Owned Cane Discharge Plan Home Transportation Arrangement Sister POV Referrals Initiated None needed Additional Comment At this time. Whiteboard Updated in Patient Room with Yes name and ext. # of Line Fisher Comment Instructed to call Review Status In Process Please Provide Date Initial DC 05/31/22 Assessment Was Performed Next Review Type Continued Stay Review
[2022-05-31] MEDS: POTASSIUM CHLORIDE 20 MEQ TAB 40 MEQ PO (12:14)
--- NOTE | 2022-05-31 13:51 | P.CONS_ITS ---
History of Present Illness Consult details Date Patient Seen: 05/31/22 Time Patient Seen: 13:51 Chief complaint: Internal bleeding Narrative: 87-year-old woman with a history of atrial fibrillation on Coumadin admitted to the hospital with a GI bleed. She presented to the emergency department for evaluation of dark tarry stool. On arrival INR 4.7, hematocrit 16 vital signs are within normal limits. No history of peptic ulcer disease. Meds Home Medications and Allergies Home Medications Medication Instructions Recorded Confirmed Type Vitamin B12+ Vitamin C 1 tab PO DAILY 02/19/18 05/30/22 History acetaminophen 500 mg tablet 500 mg PO BID 02/19/18 05/30/22 History ascorbic acid (vitamin C) 500 mg 3 tab PO DAILY 02/19/18 05/30/22 History tablet (Vitamin C) clobetasol-emollient 0.05 % 1 applictn topical 1-2XD PRN 02/19/18 05/30/22 History topical cream vaginal irritation aspirin 81 mg tablet,delayed 81 mg PO DAILY 02/02/20 05/30/22 History release (Adult Aspirin Regimen) loratadine 10 mg tablet (Allergy 10 mg PO DAILY 02/02/20 05/30/22 History Relief (loratadine)) metoprolol succinate 25 mg 25 mg PO DAILY 02/02/20 05/30/22 History tablet,extended release 24 hr lisinopril 10 mg tablet 5 mg PO DAILY 03/22/20 05/30/22 History handicap placard #1 ea 12/25/20 05/30/22 Rx diphenhydramine HCl 25 mg capsule 25 mg PO BEDTIME 09/12/21 05/30/22 History (Allergy (diphenhydramine)) melatonin 5 mg chewable tablet 5 mg PO BEDTIME PRN 09/12/21 05/30/22 History warfarin 5 mg tablet 2.5 mg PO DAILY 09/12/21 05/30/22 History triamterene 75 See Rx Instructions .Route 02/07/22 05/30/22 Rx mg-hydrochlorothiazide 50 mg tablet .COMPLEX #90 tabs levothyroxine 125 mcg tablet 125 mcg PO DAILY #30 tabs 02/25/22 05/30/22 Rx simvastatin 20 mg tablet See Rx Instructions .Route 05/17/22 05/30/22 Rx .COMPLEX #90 tabs Allergies Allergy/AdvReac Type Severity Reaction Status Date / Time codeine [CODEINE] Allergy Mild NAUSEA, Verified 05/30/22 19:28 VOMITING morphine [MORPHINE] Allergy Mild NAUSEA, Verified 05/30/22 19:28 VOMITING adhesive tape AdvReac Intermediate skin Verified 05/30/22 19:28 irritation ciprofloxacin [From CIPRO] AdvReac Intermediate Light Verified 05/30/22 19:28 headed Exam Vital Signs (past 8 hours): - 05/31/22 06:00 05/31/22 09:03 05/31/22 10:38 Temperature 98.9 F 98.5 F Pulse Rate 72 78 78 Respiratory Rate 16 17 Blood Pressure 138/71 150/49 H 150/49 H Pulse Oximetry 96 95 Oxygen Flow Rate 0 0 05/31/22 10:38 05/31/22 12:08 05/31/22 12:18 Temperature 97.7 F Pulse Rate 78 71 68 Respiratory Rate 18 Blood Pressure 150/49 H 155/47 H 155/56 H Pulse Oximetry 96 Oxygen Flow Rate 0 Oxygen Delivery Method Room Air Oxygen Flow Rate 0 Narrative Exam Narrative: General elderly woman alert oriented no acute distress Abdomen soft nontender nondistended Objective Labs Result Diagrams: 05/31/22 06:33 05/31/22 06:33 Labs: Laboratory Results - last 24 hr 05/30/22 05/30/22 05/30/22 20:40 20:40 20:40 WBC 4.4 L RBC 2.61 L Hgb 4.6 L* Hct 16.0 L* MCV 61.1 L MCH 17.7 L MCHC 28.9 L RDW 19.1 H Plt Count 231 Neut % (Auto) 60.2 Lymph % (Auto) 27.4 [place] % (Auto) 9.0 Eos % (Auto) 2.4 Baso % (Auto) 1.0 Neut # (Auto) 2700 Lymph # (Auto) 1200 [place] # (Auto) 400 Eos # (Auto) 100 Baso # (Auto) 0 RBC Morphology See below Hypochromasia 3+ H Poikilocytosis Anisocytosis 3+ H Microcytosis 1+ H Target Cells 2+ H Tear Drop Cells 1+ H PT 54.7 H D INR 4.7 H* APTT 40 H Sodium 141 Potassium 3.7 Chloride 112 H Carbon Dioxide 22 BUN 12 Creatinine 0.82 Estimated GFR > 60 BUN/Creatinine Ratio 14.6 Glucose 96 Calcium 8.3 L Magnesium Total Bilirubin 0.5 AST 26 ALT 16 Alkaline Phosphatase 53 Total Creatine Kinase CK-MB (CK-2) CK-MB (CK-2) Rel Index Troponin I NT-Pro-B Natriuret Pep Total Protein 6.1 L Albumin 3.8 Globulin 2.3 Albumin/Globulin Ratio 1.7 SARS-CoV-2 (PCR) Blood Type Antibody Screen Crossmatch 05/30/22 05/30/22 05/30/22 20:40 20:40 22:13 WBC RBC Hgb Hct MCV MCH MCHC RDW Plt Count Neut % (Auto) Lymph % (Auto) [place] % (Auto) Eos % (Auto) Baso % (Auto) Neut # (Auto) Lymph # (Auto) [place] # (Auto) Eos # (Auto) Baso # (Auto) RBC Morphology Hypochromasia Poikilocytosis Anisocytosis Microcytosis Target Cells Tear Drop Cells PT INR APTT Sodium Potassium Chloride Carbon Dioxide BUN Creatinine Estimated GFR BUN/Creatinine Ratio Glucose Calcium Magnesium Total Bilirubin AST ALT Alkaline Phosphatase Total Creatine Kinase 28 L CK-MB (CK-2) TNP CK-MB (CK-2) Rel Index TNP Troponin I < 0.012 NT-Pro-B Natriuret Pep 1240 H Total Protein Albumin Globulin Albumin/Globulin Ratio SARS-CoV-2 (PCR) Negative Blood Type O Positive Antibody Screen Negative Crossmatch See Detail 05/31/22 05/31/22 05/31/22 06:33 06:33 06:33 WBC 4.0 L RBC 3.48 L Hgb 7.4 L Hct 23.7 L MCV 68.0 L D MCH 21.2 L MCHC 31.2 RDW 26.0 H Plt Count 211 Neut % (Auto) 55.3 Lymph % (Auto) 30.6 [place] % (Auto) 8.8 Eos % (Auto) 4.3 H Baso % (Auto) 1.0 Neut # (Auto) 2200 Lymph # (Auto) 1200 [place] # (Auto) 400 Eos # (Auto) 200 Baso # (Auto) 0 RBC Morphology See below Hypochromasia 2+ H Poikilocytosis 2+ H Anisocytosis 3+ H Microcytosis 2+ H Target Cells Tear Drop Cells PT 22.5 H D INR 1.9 H APTT Sodium 141 Potassium 3.3 L Chloride 109 H Carbon Dioxide 24 BUN 11 Creatinine 0.78 Estimated GFR > 60 BUN/Creatinine Ratio 14.1 Glucose 96 Calcium 8.1 L Magnesium 2.1 Total Bilirubin 1.4 H AST 30 ALT 17 Alkaline Phosphatase 52 Total Creatine Kinase CK-MB (CK-2) CK-MB (CK-2) Rel Index Troponin I NT-Pro-B Natriuret Pep Total Protein 6.3 Albumin 3.7 Globulin 2.6 Albumin/Globulin Ratio 1.4 SARS-CoV-2 (PCR) Blood Type Antibody Screen Crossmatch [facility] Medical History Abdominal pain Abnormal Pap smear of cervix Adrenal nodule Anal fissure Body mass index (BMI) of 30.0 to 39.9 (03/27/16) Carotid artery plaque (~10/29/19) Cellulitis (~2006) Cellulitis of right leg Cellulitis of right lower extremity without foot Chronic venous insufficiency (10/29/10) Common cold Eczema Foot pain Heel pain Hemorrhoids History of frequent headaches Hyperlipidemia Hypertension (10/29/10) Hypothyroidism Lichen sclerosus Measles (~194) Migraines Mild cognitive impairment (~11/2019) Obstructive sleep apnea hypopnea, mild Peripheral vascular disease Plantar fasciitis 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) Shoulder pain Varicosities of leg Vision abnormalities Vitamin D deficiency Surgical History History of esophagogastroduodenoscopy (EGD) (05/13/17) S/P TAVR (transcatheter aortic valve replacement) Sigmoidoscopy performed Status post appendectomy Status post breast biopsy Status post colonoscopy (05/13/17) Status post sclerotherapy of varicose veins Family History Brother Heart disease Hypertension Father Heart disease Hypertension Heart attack Mother Osteoarthritis Sister Age: 84 Heart attack Heart disease Hypertension Brother Cancer Social History household members: none Tobacco & Substance Use Smoking Status: Former smoker alcohol intake: current Assessment & Plan Assessment and plan (1) GI bleed: Status: Acute Assessment & Plan narrative: 87-year-old woman with supratherapeutic INR and upper GI bleed. Hemodynamically stable. Will proceed with esophagoduodenoscopy for further evaluation and treatment. Overview of procedure was discussed with patient. Procedural risks including further bleeding, intestinal perforation, need for further procedure were discussed. Questions have been answered she is in agreement with this plan. Time Spent With Patient Critical Care time: I spent a total of [] minutes of critical care time on this patient's care today; this time is exclusive of procedural time.
--- NOTE | 2022-05-31 14:04 | P.OP.EGD_ITS ---
Operative Date/Time/Diagnoses Date of procedure: 05/31/22 Time of procedure: 14:05 Pre-op diagnosis: GI bleed Post-op diagnosis: other (Gastritis) Procedure & Clinicians Study performed: Esophagoduodenoscopy Same procedure as scheduled: Yes Indications: 87-year-old woman on anticoagulation with warfarin presented with GI bleed hemodynamically stable Procedure Notes Procedure in detail: Patient placed in left lateral decubitus position. Time out was performed. Proc edural sedation was administered by anesthesia. A bite block was placed. the scope was inserted into the mouth and advanced through the esophagus and into the stomach. Stomach was notable for diffuse gastritis. No distinct ulcer or active hemorrhage. The pylorus was intubated and the duodenum was normal to the 2nd portion. The scope was retroflexed within the stomach and there was a small hiatal hernia. The scope was withdrawn into the esophagus the Z line was seen at 40 cm from the incisions. There was no Angelo's esophagitis or masses or strictures. Stomach was desufflated and scope removed. Patient tolerated procedure well. Specimen(s): none sent Impression: Gastritis Post-procedure Plan for aftercare: PPI return to floor Disposition: same day surgery
[2022-05-31 14:08] LABS: Hematocrit 22.2 % (36-46)
[2022-05-31 14:12] LABS: Hemoglobin 6.9 g/dL (12.0-16.0)
--- NOTE | 2022-05-31 15:14 | PC.NURSE ---
Pt arrived back to the floor from endoscopy at 1457. The pt was able to transfer from [facility] back into the hospital bed with standby assistance only. Upon arrival this RN took vital signs and vitals signs were stable.
--- NOTE | 2022-05-31 16:09 | P.PN_ITS ---
Subjective Subjective Interval history: 87-year-old female with aortic stenosis s/p TAVR, chronically anticoagulated on warfarin since 12/04 for potential valvular thrombosis, hypertension, hypothyroidism, peripheral vascular disease, mild cognitive impairment, mild obstructive sleep apnea, hyperlipidemia admitted with symptomatic anemia. Patient was initially found to have a hemoglobin of 4.6. She received 2 units of packed red blood cells and her hemoglobin is up to 7.4. She notes she is feeling better overall. She is less lightheaded and short of breath. She states she did notice a black tarry stool a couple of days ago but has not had 1 since. Exam Vital Signs (past 8 hours): - 05/31/22 09:03 05/31/22 10:38 05/31/22 10:38 Temperature 98.5 F Pulse Rate 78 78 78 Respiratory Rate 17 Blood Pressure 150/49 H 150/49 H 150/49 H Pulse Oximetry 95 Oxygen Delivery Method Oxygen Flow Rate 0 05/31/22 12:08 05/31/22 12:18 05/31/22 14:12 Temperature 97.7 F 97.3 F L Pulse Rate 71 68 69 Respiratory Rate 18 18 Blood Pressure 155/47 H 155/56 H 126/62 Pulse Oximetry 96 92 Oxygen Delivery Method Room Air Oxygen Flow Rate 0 05/31/22 14:17 05/31/22 14:21 05/31/22 14:27 Temperature Pulse Rate 68 69 67 Respiratory Rate 19 19 16 Blood Pressure 134/68 141/68 H 139/68 Pulse Oximetry 93 92 96 Oxygen Delivery Method Room Air Room Air Room Air Oxygen Flow Rate 05/31/22 14:37 05/31/22 14:57 Temperature 97.3 F L 97.7 F Pulse Rate 69 66 Respiratory Rate 16 17 Blood Pressure 144/70 H 144/60 H Pulse Oximetry 97 97 Oxygen Delivery Method Room Air Oxygen Flow Rate 0 Oxygen Delivery Method Room Air Oxygen Flow Rate 0 Narrative Exam Narrative: GEN: Very pleasant elderly female, Alert and oriented x 3, pale, NAD HEENT:NC, Face symmetric CHEST: Respiratory excursions symmetric, CTAB CV: RRR, grade 3 to 4/6 systolic murmur heard best at the left sternal border, no R/G ABD: Soft, NT/ND, BT present in all 4 quadrants, no organomegaly or masses EXTR: warm, well perfused, no C/C/E SKIN: warm and dry, no rash NEURO: Alert and oriented x 3, nonfocal Objective Labs Result Diagrams: 05/31/22 13:36 05/31/22 06:33 Labs: Laboratory Results - last 24 hr 05/30/22 05/30/22 05/30/22 20:40 20:40 20:40 WBC 4.4 L RBC 2.61 L Hgb 4.6 L* Hct 16.0 L* MCV 61.1 L MCH 17.7 L MCHC 28.9 L RDW 19.1 H Plt Count 231 Neut % (Auto) 60.2 Lymph % (Auto) 27.4 [place] % (Auto) 9.0 Eos % (Auto) 2.4 Baso % (Auto) 1.0 Neut # (Auto) 2700 Lymph # (Auto) 1200 [place] # (Auto) 400 Eos # (Auto) 100 Baso # (Auto) 0 RBC Morphology See below Hypochromasia 3+ H Poikilocytosis Anisocytosis 3+ H Microcytosis 1+ H Target Cells 2+ H Tear Drop Cells 1+ H PT 54.7 H D INR 4.7 H* APTT 40 H Sodium 141 Potassium 3.7 Chloride 112 H Carbon Dioxide 22 BUN 12 Creatinine 0.82 Estimated GFR > 60 BUN/Creatinine Ratio 14.6 Glucose 96 Calcium 8.3 L Magnesium Total Bilirubin 0.5 AST 26 ALT 16 Alkaline Phosphatase 53 Total Creatine Kinase CK-MB (CK-2) CK-MB (CK-2) Rel Index Troponin I NT-Pro-B Natriuret Pep Total Protein 6.1 L Albumin 3.8 Globulin 2.3 Albumin/Globulin Ratio 1.7 SARS-CoV-2 (PCR) Blood Type Antibody Screen Crossmatch 05/30/22 05/30/22 05/30/22 20:40 20:40 22:13 WBC RBC Hgb Hct MCV MCH MCHC RDW Plt Count Neut % (Auto) Lymph % (Auto) [place] % (Auto) Eos % (Auto) Baso % (Auto) Neut # (Auto) Lymph # (Auto) [place] # (Auto) Eos # (Auto) Baso # (Auto) RBC Morphology Hypochromasia Poikilocytosis Anisocytosis Microcytosis Target Cells Tear Drop Cells PT INR APTT Sodium Potassium Chloride Carbon Dioxide BUN Creatinine Estimated GFR BUN/Creatinine Ratio Glucose Calcium Magnesium Total Bilirubin AST ALT Alkaline Phosphatase Total Creatine Kinase 28 L CK-MB (CK-2) TNP CK-MB (CK-2) Rel Index TNP Troponin I < 0.012 NT-Pro-B Natriuret Pep 1240 H Total Protein Albumin Globulin Albumin/Globulin Ratio SARS-CoV-2 (PCR) Negative Blood Type O Positive Antibody Screen Negative Crossmatch See Detail 05/31/22 05/31/22 05/31/22 06:33 06:33 06:33 WBC 4.0 L RBC 3.48 L Hgb 7.4 L Hct 23.7 L MCV 68.0 L D MCH 21.2 L MCHC 31.2 RDW 26.0 H Plt Count 211 Neut % (Auto) 55.3 Lymph % (Auto) 30.6 [place] % (Auto) 8.8 Eos % (Auto) 4.3 H Baso % (Auto) 1.0 Neut # (Auto) 2200 Lymph # (Auto) 1200 [place] # (Auto) 400 Eos # (Auto) 200 Baso # (Auto) 0 RBC Morphology See below Hypochromasia 2+ H Poikilocytosis 2+ H Anisocytosis 3+ H Microcytosis 2+ H Target Cells Tear Drop Cells PT 22.5 H D INR 1.9 H APTT Sodium 141 Potassium 3.3 L Chloride 109 H Carbon Dioxide 24 BUN 11 Creatinine 0.78 Estimated GFR > 60 BUN/Creatinine Ratio 14.1 Glucose 96 Calcium 8.1 L Magnesium 2.1 Total Bilirubin 1.4 H AST 30 ALT 17 Alkaline Phosphatase 52 Total Creatine Kinase CK-MB (CK-2) CK-MB (CK-2) Rel Index Troponin I NT-Pro-B Natriuret Pep Total Protein 6.3 Albumin 3.7 Globulin 2.6 Albumin/Globulin Ratio 1.4 SARS-CoV-2 (PCR) Blood Type Antibody Screen Crossmatch 05/31/22 13:36 WBC RBC Hgb 6.9 L* Hct 22.2 L MCV MCH MCHC RDW Plt Count Neut % (Auto) Lymph % (Auto) [place] % (Auto) Eos % (Auto) Baso % (Auto) Neut # (Auto) Lymph # (Auto) [place] # (Auto) Eos # (Auto) Baso # (Auto) RBC Morphology Hypochromasia Poikilocytosis Anisocytosis Microcytosis Target Cells Tear Drop Cells PT INR APTT Sodium Potassium Chloride Carbon Dioxide BUN Creatinine Estimated GFR BUN/Creatinine Ratio Glucose Calcium Magnesium Total Bilirubin AST ALT Alkaline Phosphatase Total Creatine Kinase CK-MB (CK-2) CK-MB (CK-2) Rel Index Troponin I NT-Pro-B Natriuret Pep Total Protein Albumin Globulin Albumin/Globulin Ratio SARS-CoV-2 (PCR) Blood Type Antibody Screen Crossmatch [facility] Medical History Abdominal pain Abnormal Pap smear of cervix Adrenal nodule Anal fissure Body mass index (BMI) of 30.0 to 39.9 (03/27/16) Carotid artery plaque (~10/29/19) Cellulitis (~2006) Cellulitis of right leg Cellulitis of right lower extremity without foot Chronic venous insufficiency (10/29/10) Common cold Eczema Foot pain Heel pain Hemorrhoids History of frequent headaches Hyperlipidemia Hypertension (10/29/10) Hypothyroidism Lichen sclerosus Measles (~1944) Migraines Mild cognitive impairment (~11/2019) Obstructive sleep apnea hypopnea, mild Peripheral vascular disease Plantar fasciitis 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) Shoulder pain Varicosities of leg Vision abnormalities Vitamin D deficiency Surgical History History of esophagogastroduodenoscopy (EGD) (05/13/17) S/P TAVR (transcatheter aortic valve replacement) Sigmoidoscopy performed Status post appendectomy Status post breast biopsy Status post colonoscopy (05/13/17) Status post sclerotherapy of varicose veins Family History Brother Heart disease Hypertension Father Heart disease Hypertension Heart attack Mother Osteoarthritis Sister Age: 84 Heart attack Heart disease Hypertension Brother Cancer Social History household members: none Smoking Status: Former smoker alcohol intake: current Assessment & Plan Assessment & Plan narrative: 1. Symptomatic anemia Hemoglobin 4.6 on admission. Appears to be chronic blood loss anemia with MCV of 61.1 on admission. She has received 2 units of packed red blood cells with hemoglobin up to 7.4. Will obtain a follow-up H/H to monitor. Suspect chronic GI blood losses. Follow labs serially. 2. Possible chronic upper GI bleed Normal BUN on admission and hemoglobin down to 4.6 on admission. Await EGD to be done by General surgery today. 3. Coagulopathy INR was 4.7 on admission consistent with supratherapeutic INR from warfarin. Warfarin was held, she received vitamin K, and her INR is now down to 1.9 today. 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 4. Acute on chronic CHF exacerbation, diastolic in nature Patient did receive IV Lasix with her transfusions. She appears euvolemic presently. Continue her usual home medications. 5. Coronary artery disease No anginal symptoms. Continue outpatient dosing of metoprolol and atorvastatin 6. Hypertension Continue usual home medications 7. Hypothyroidism Continue usual thyroid replacement Code status Full Prophylaxis Chemical prophylaxis deferred in the setting of possible GI bleeding and coagulopathy Disposition Likely home at discharge Time Spent With Patient Critical Care time: I spent a total of [] minutes of critical care time on this patient's care today; this time is exclusive of procedural time.
--- NOTE | 2022-05-31 16:46 | PC.NURSE ---
Per no picc line required at this time.
--- NOTE | 2022-05-31 18:43 | DIET.PN1 ---
Addendum entered by Danica Lindo 05/31/22 18:52: Pt seen by RD due to screen for low MNA Original Note: Dietary Progress Note Assessment: 87 y/o F admitted with chief complaint of SOB and dyspnea. Admitted with suspected upper GI bleed. Per EMR -4.2% weight loss over 2 weeks (severe) Reports poor appetite over the last 6 months but particularly poor PO over the last 2 weeks. Diet recall indicates <1000 kcals per day more recently. (equal to or less than 60% REE) Nutrition focused physical exam indicates mild temporal depression and interosseious depression. Diet recall; 12-2p yogurt or orange sn: cream cheese and veggies 8p: nothing or 1 frozen meal Beverages: water or sf beverages Ht: 170.18 cm Wt: 85.1 kg BMI: 30.2 Last BM: () MNA: 9 Mani Score: 19 Diet: 05/31/22 00:01 NPO Diet Diet Modifications: NPO Type: NPO NOW for Procedure 05/31/22 Dinner General (Regular) Diet Diet Modifications: Labs: RBC 3.48 X10^6/uL (4.0-5.2) L 05/31/22 06:33 Hgb 6.9 g/dL (12.0-16.0) L* 05/31/22 13:36 Hct 22.2 % (36-46) L 05/31/22 13:36 Creatinine 0.78 mg/dL (0.52-1.04) 05/31/22 06:33 NT-Pro-B Natriuret Pep 1240 pg/mL (<450) H 05/30/22 20:40 Nutrition Diagnosis: Acute moderate protein calorie malnutrition r/t poor appetite aeb diet recall indicating <75% REE, weight loss of 4.2% over two weeks, and nutrition focused physical exam indicating wasting of temples and interosseous. Interventions: ONS daily EER: 1700 kcals/day (20 kcal/kg per BMI) Monitoring/Evaluations: PO, weight Electronically Signed by: Danica Lindo 05/31/22 18:43 Clinical Dietitian [address] [address]
[2022-05-31] MEDS: ATORVASTATIN 20 MG TABLET 10 MG PO (20:16)
[2022-06-01] VITALS (8 sets, daily range): BP systolic 126–163; BP diastolic 47–76; PULSE 59–74; RESP 15–20; TEMP 36.3–37.1; O2SAT 94–98
[2022-06-01 05:47] LABS: INR 1.4 (0.9-1.3); Prothrombin Time 15.8 SECONDS (10.1-12.7)
[2022-06-01] MEDS: LEVOTHYROXINE 125 MCG TABLET PO (05:57)
[2022-06-01 06:00] LABS: Alanine Aminotransferase 16 IU/L (<35); Albumin 3.2 g/dL (3.5-5.0); Albumin Globulin Ratio 1.5 (1.0-2.8); Alkaline Phosphatase 57 U/L (38-126); Aspartate Aminotransferase 24 IU/L (14-36); BUN Creatinine Ratio 12.9 (6-22); Bilirubin Total 1.1 mg/dL (0.2-1.3); Blood Urea Nitrogen 11 mg/dL (7-17); Calcium 7.9 mg/dL (8.4-10.2); Carbon Dioxide 24 mmol/L (22-32); Chloride 109 mmol/L (98-107); Estimated Glomerular Filt Rate > 60 mL/min (>60); Globulin 2.2 g/dL (1.7-4.1); Glucose 95 mg/dL (80-110); HEMOLYSIS < 15 (0-50); Potassium 3.7 mmol/L (3.4-5.1); Sodium 140 mmol/L (137-145); Total Protein 5.4 g/dL (6.3-8.2)
[2022-06-01 06:15] LABS: Basophils Absolute Auto 0 /uL (0-100); Basophils Percent Auto 0.9 % (0-2); Eosinophils Absolute Auto 300 /uL (0-450); Eosinophils Percent Auto 6.8 % (2-4); Hemoglobin 8.1 g/dL (12.0-16.0); Lymphocytes Absolute Auto 1300 /uL (1100-4500); Lymphocytes Percent Auto 29.4 % (25-40); Mean Corpuscular HGB Conc 32.4 % (30-36); Mean Corpuscular Hemoglobin 22.9 PG (26-34); Mean Corpuscular Volume 70.6 fL (80-100); Monocytes Absolute Auto 400 /uL (0-900); Monocytes Percent Auto 9.7 % (3-14); Neutrophils Absolute Auto 2300 /uL (1500-7000); Neutrophils Percent Auto 53.2 % (50-75); Red Blood Cell Count 3.55 X10^6/uL (4.0-5.2); Red Cell Distribution Width 28.1 % (11.6-14.8); White Blood Cell Count 4.4 X10^3/uL (4.5-11.0)
[2022-06-01 07:13] LABS: Add Manual Diff / Slide Review SLIDE REVIEW
--- NOTE | 2022-06-01 07:53 | PM.PN.1 ---
Subjective Subjective Date Patient Seen: 06/01/22 Interval history: She is seen today to follow-up her evident GI bleeding, anemia and aortic valve clot warfarin therapy. Her INR is 1.4. CMP is normal. The hemoglobin has risen from 6.9 up to 8.1 now. She has had a normal EGD but no colonoscopy so far. Exam Vital Signs (past 8 hours): - 06/01/22 02:00 06/01/22 06:00 Temperature 98 F 98.2 F Pulse Rate 68 65 Respiratory Rate 18 20 Blood Pressure 152/47 H 157/76 H Pulse Oximetry 97 98 Oxygen Flow Rate 0 0 Oxygen Delivery Method Room Air Oxygen Flow Rate 0 Narrative Exam Narrative: She is alert and oriented x3. She seems unable to self edit and gives very long ?story answers to straightforward questions. Heart is regular rate and rhythm without murmur. Lungs are clear to auscultation bilaterally. Abdomen Is soft, bowel sounds positive, nontender, no organomegaly. Extremities have no ankle edema. Objective Labs Result Diagrams: 06/01/22 05:08 06/01/22 05:08 Labs: Laboratory Results - last 24 hr 05/30/22 05/31/22 05/31/22 20:40 06:33 13:36 WBC RBC Hgb 6.9 L* Hct 22.2 L MCV MCH MCHC RDW Neut % (Auto) Lymph % (Auto) [place] % (Auto) Eos % (Auto) Baso % (Auto) Neut # (Auto) Lymph # (Auto) [place] # (Auto) Eos # (Auto) Baso # (Auto) RBC Morphology See below Hypochromasia 2+ H Poikilocytosis 2+ H Anisocytosis 3+ H Microcytosis 2+ H PT INR Sodium Potassium Chloride Carbon Dioxide BUN Creatinine Estimated GFR BUN/Creatinine Ratio Glucose Calcium Magnesium Total Bilirubin AST ALT Alkaline Phosphatase Total Protein Albumin Globulin Albumin/Globulin Ratio Blood Type O Positive Antibody Screen Negative Crossmatch See Detail 06/01/22 06/01/22 06/01/22 05:08 05:08 05:08 WBC 4.4 L RBC 3.55 L Hgb 8.1 L Hct 25.0 L MCV 70.6 L MCH 22.9 L MCHC 32.4 RDW 28.1 H Neut % (Auto) 53.2 Lymph % (Auto) 29.4 [place] % (Auto) 9.7 Eos % (Auto) 6.8 H Baso % (Auto) 0.9 Neut # (Auto) 2300 Lymph # (Auto) 1300 [place] # (Auto) 400 Eos # (Auto) 300 Baso # (Auto) 0 RBC Morphology Hypochromasia Poikilocytosis Anisocytosis Microcytosis PT 15.8 H D INR 1.4 H Sodium 140 Potassium 3.7 Chloride 109 H Carbon Dioxide 24 BUN 11 Creatinine 0.85 Estimated GFR > 60 BUN/Creatinine Ratio 12.9 Glucose 95 Calcium 7.9 L Magnesium 2.0 Total Bilirubin 1.1 AST 24 ALT 16 Alkaline Phosphatase 57 Total Protein 5.4 L Albumin 3.2 L Globulin 2.2 Albumin/Globulin Ratio 1.5 Blood Type Antibody Screen Crossmatch [facility] Medical History Abdominal pain Abnormal Pap smear of cervix Adrenal nodule Anal fissure Body mass index (BMI) of 30.0 to 39.9 (03/27/16) Carotid artery plaque (~10/29/19) Cellulitis (~2006) Cellulitis of right leg Cellulitis of right lower extremity without foot Chronic venous insufficiency (10/29/10) Common cold Eczema Foot pain Heel pain Hemorrhoids History of frequent headaches Hyperlipidemia Hypertension (10/29/10) Hypothyroidism Lichen sclerosus Measles (~1944) Migraines Mild cognitive impairment (~11/2019) Obstructive sleep apnea hypopnea, mild Peripheral vascular disease Plantar fasciitis 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) Shoulder pain Varicosities of leg Vision abnormalities Vitamin D deficiency Surgical History History of esophagogastroduodenoscopy (EGD) (05/13/17) S/P TAVR (transcatheter aortic valve replacement) Sigmoidoscopy performed Status post appendectomy Status post breast biopsy Status post colonoscopy (05/13/17) Status post sclerotherapy of varicose veins Family History Brother Heart disease Hypertension Father Heart disease Hypertension Heart attack Mother Osteoarthritis Sister Age: 84 Heart attack Heart disease Hypertension Brother Cancer Social History household members: none Smoking Status: Former smoker alcohol intake: current Assessment & Plan Assessment & Plan narrative: 1. Symptomatic anemia Hemoglobin 4.6 on admission.? Appears to be chronic blood loss anemia with MCV of 61.1 on admission.? She has received 2 units of packed red blood cells with hemoglobin up to 7.4.? Hemoglobin dropped to 6.9 so was transfused 1 more unit of blood with resulting hemoglobin of 8.1 on 06/01. If hemoglobin remains stable on 06/02 can likely be discharged to continue GI workup 2. Possible chronic upper GI bleed Normal BUN on admission and hemoglobin down to 4.6 on admission.? EGD and without clear explanation/etiology for blood loss anemia. Additional workup including colonoscopy, small-bowel capsule endoscopy, etc. per GI or surgery as outpatient. 3. Coagulopathy INR was 4.7 on admission consistent with supratherapeutic INR from warfarin.? Warfarin was held, she received vitamin K, and her INR is now down to 1.4 today.? 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 Plan resume warfarin on 06/02 assuming hemoglobin remains stable above 8.1. 4. Acute on chronic CHF exacerbation, diastolic in nature Patient did receive IV Lasix with her transfusions.? She appears euvolemic presently.? Continue her usual home medications. 5. Coronary artery disease No anginal symptoms.? Continue outpatient dosing of metoprolol and atorvastatin 6. Hypertension Continue usual home medications 7. Hypothyroidism Continue usual thyroid replacement Code status Full Prophylaxis Chemical prophylaxis deferred in the setting of possible GI bleeding and coagulopathy Disposition Likely home at discharge Time Spent With Patient Critical Care time: I spent a total of [] minutes of critical care time on this patient's care today; this time is exclusive of procedural time.
[2022-06-01] MEDS: ACETAMINOPHEN 325 MG TABLET 650 MG PO ×3 (08:28→20:51)
[2022-06-01] MEDS: PANTOPRAZOLE 40 MG VIAL IV ×2 (08:28→20:53)
[2022-06-01] MEDS: METOPROLOL ER 25 MG TABLET PO (08:29)
[2022-06-01] MEDS: lisinopriL 10 MG TABLET 2.5 MG PO (08:29)
[2022-06-01 08:31] LABS: Anisocytosis 3+; Hypochromasia 3+; Microcytosis 1+
[2022-06-01 08:32] LABS: Schistocytes 2+
[2022-06-01 08:33] LABS: Tear Drop Cells 1+
[2022-06-01 08:34] LABS: Platelet Count 214 X10^3/uL (150-400)
[2022-06-01] MEDS: MELATONIN 3 MG TABLET 6 MG PO (20:52)
[2022-06-01] MEDS: ATORVASTATIN 20 MG TABLET 10 MG PO (20:52)
[2022-06-02] VITALS: BP 144/49; PULSE 72; RESP 19; TEMP 36.6; O2SAT 97
[2022-06-02 04:00] VITALS: BP 148/65; PULSE 72; RESP 19; TEMP 36.4; O2SAT 97
[2022-06-02] MEDS: LEVOTHYROXINE 125 MCG TABLET PO (05:38)
[2022-06-02 05:53] LABS: Basophils Absolute Auto 0 /uL (0-100); Basophils Percent Auto 0.7 % (0-2); Eosinophils Absolute Auto 400 /uL (0-450); Eosinophils Percent Auto 6.3 % (2-4); Hematocrit 25.5 % (36-46); Hemoglobin 7.9 g/dL (12.0-16.0); Lymphocytes Absolute Auto 1300 /uL (1100-4500); Lymphocytes Percent Auto 22.7 % (25-40); Mean Corpuscular Hemoglobin 22.3 PG (26-34); Mean Corpuscular Volume 71.7 fL (80-100); Monocytes Absolute Auto 500 /uL (0-900); Monocytes Percent Auto 9.2 % (3-14); Neutrophils Absolute Auto 3400 /uL (1500-7000); Neutrophils Percent Auto 61.1 % (50-75); Red Blood Cell Count 3.55 X10^6/uL (4.0-5.2); Red Cell Distribution Width 28.3 % (11.6-14.8); White Blood Cell Count 5.6 X10^3/uL (4.5-11.0)
[2022-06-02 05:58] LABS: Alanine Aminotransferase 16 IU/L (<35); Albumin 3.3 g/dL (3.5-5.0); Albumin Globulin Ratio 1.5 (1.0-2.8); Alkaline Phosphatase 65 U/L (38-126); Aspartate Aminotransferase 23 IU/L (14-36); BUN Creatinine Ratio 16.8 (6-22); Bilirubin Total 0.6 mg/dL (0.2-1.3); Blood Urea Nitrogen 16 mg/dL (7-17); Carbon Dioxide 24 mmol/L (22-32); Chloride 109 mmol/L (98-107); Estimated Glomerular Filt Rate 58 mL/min (>60); Globulin 2.2 g/dL (1.7-4.1); Glucose 104 mg/dL (80-110); HEMOLYSIS < 15 (0-50); Potassium 3.8 mmol/L (3.4-5.1); Sodium 138 mmol/L (137-145); Total Protein 5.5 g/dL (6.3-8.2)
[2022-06-02 06:01] LABS: Add Manual Diff / Slide Review SLIDE REVIEW
[2022-06-02] MEDS: ACETAMINOPHEN 325 MG TABLET 650 MG PO (06:25)
[2022-06-02 07:32] LABS: Schistocytes 1+
[2022-06-02 07:33] LABS: Anisocytosis 3+; Hypochromasia 2+; Poikilocytosis 2+
[2022-06-02 07:34] LABS: Platelet Count 189 X10^3/uL (150-400); Platelet Estimate Adequate on smear
[2022-06-02 08:30] VITALS: BP 130/66; PULSE 70; RESP 16; TEMP 36.6; O2SAT 98
--- NOTE | 2022-06-02 08:39 | PC.NURSE ---
Addendum entered by Stephanie Rossi R.N. 06/02/22 14:24: Patient had a medium bowel movement and states that she is feeling better . No blood present. Original Note: Assess- Patient is alert and oriented x4, she denies pain and bowel tones are +x4. Patient is eating breakfast. Lower extremities with 1+ edema, ppx2. Patient would like to go home today. Will see what the plan is for patient after does his rounds.
[2022-06-02] MEDS: METOPROLOL ER 25 MG TABLET PO (08:48)
[2022-06-02] MEDS: lisinopriL 10 MG TABLET 2.5 MG PO (08:48)
[2022-06-02] MEDS: PANTOPRAZOLE 40 MG VIAL IV (08:49)
[2022-06-02 12:48] VITALS: BP 125/62; PULSE 80; RESP 17; TEMP 36.5; O2SAT 97
[2022-06-02 12:52] LABS: Hematocrit 28.8 % (36-46); Hemoglobin 9.1 g/dL (12.0-16.0)
[2022-06-02 16:00] VITALS: BP 122/70; PULSE 78; RESP 16; TEMP 36.6; O2SAT 98
--- NOTE | 2022-06-02 16:10 | P.DS_ITS ---
History of Present Illness History of Present Illness Date Patient Seen: 06/02/22 Chief complaint: Internal bleeding Narrative: Per admitting provider, Arina Seaman is a pleasant 87 y.o. female with a history of a TAVR 2 years ago and anticoagulated on warfarin, was checking her periodic INRs by her pharmacist. She states she has been feeling very fatigued, weak with a low appetite for the past 4-5 months. When she went in, they noticed her INRs kept increasing. She was directed to see her PCP and was seen by Dr. Myers who ordered bloodwork here at [facility]'s outpatient lab. She was found to have an INR of 4.7 and a hemoglobin and hematocrit of 4.6 and 16 respectively and was directed to the ED by their office. She did report to the emergency room provider that she had dark tarry stools but did not complain of any chest pain, palpitations, s hortness of breath other than being exercise intolerance, nausea vomiting, abdominal pain, dysuria, diarrhea or constipation, or any upper lower extremity peripheral neuropathy. She does state that she is unable to receive IV sticks in her left arm as that is the arm they attempted to deploy the TAVR and failed. She states a few years ago she had a colonoscopy in when she came to was informed that they had also performed an upper GI scope and found what she thought were ulcers. Lumbar spine x-ray was done in the ED however results are not published in [employer]. She was administered a one time dose of IV vitamin K to help reverse her INR. She is afebrile, blood pressure 148/72 heart rate 79 respiratory rate 18 oxygen saturation of 98% on room air she weighs 87.5 kg with a BMI of 30.2. WBC was 4.4 hemoglobin 4.6 hematocrit 16 she had a normal platelet count her INR was 4.7 chloride 112 calcium 8.3 BNP was 1240 she is O-positive blood type and COVID 19 PCR is negative. Discharge Providers Provider Date of admission: 05/30/22 22:31 Discharge Date: 06/02/22 Primary care physician: Fani Demarco DO Consults: 05/30/22 23:16 Consult to General Surgery Routine Comment: Consulting Provider: Valentin Byrd Reason for consultation: Symptomatic anemia, hx UGIB Has provider been notified: Yes Discharge provider: Crescencio Blanco, DO Summary Hospital Course Discharge Diagnosis: Please see hospital course by problem list noted below: Hospital Course: 1. Symptomatic acute blood loss anemia. Hemoglobin 4.6 on admission.? Appears to be chronic blood loss anemia with MCV of 61.1 on admission.? She has received 2 units of packed red blood cells with hemoglobin improved, she did require a 3rd unit after another drop in her h/h. After her 3rd unit, she remained stable and Hg continued to trend up with PPI. Up to 9 at the time of discharge. EGD without a clear explanation Outpatient colonoscopy is recommended by general surgery given h/h remains stable. This can be with surgery or GI as an outpatient. 2. Possible chronic upper GI bleed Normal BUN on admission and hemoglobin down to 4.6 on admission.? EGD and without clear explanation/etiology for blood loss anemia. Additional workup including colonoscopy, small-bowel capsule endoscopy, etc. per GI or surgery as outpatient. will discharge on 40 mg pantoprazole daily for now as a precaution, consider discontinuation if source is identified as an outpatient. 3. Chronic anticoagulation on coumadin with supratherapeutic INR. INR was 4.7 on admission consistent with supratherapeutic INR from warfarin.? Warfarin was held, she received vitamin K, and her INR is now down.? 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 Resume warfarin with PCP as an outpatient and /or cardiology group as an outpatient. 4. Acute on chronic CHF exacerbation, diastolic Patient did receive IV Lasix with her transfusions.? She appears euvolemic presently.? Continue her usual home medications at the time of discharge. 5. Coronary artery disease No anginal symptoms.? Continue outpatient dosing of metoprolol and atorvastatin 6. Hypertension Continue usual home medications 7. Hypothyroidism Continue usual thyroid replacement Time Spent with Patient Time spent: Greater than 30 minutes Exam Vital Signs (past 8 hours): - 06/02/22 08:30 06/02/22 12:48 Temperature 98 F 97.7 F Pulse Rate 70 80 Respiratory Rate 16 17 Blood Pressure 130/66 125/62 Pulse Oximetry 98 97 Oxygen Flow Rate 0 0 Oxygen Delivery Method Room Air Oxygen Flow Rate 0 Narrative Exam Narrative: GEN: Very pleasant elderly female, Alert and oriented x 3, pale, NAD HEENT:NC, Face symmetric CHEST: Respiratory excursions symmetric, CTAB CV: RRR, grade 3 to 4/6 systolic murmur heard best at the left sternal border, no R/G ABD: Soft, NT/ND, BT present in all 4 quadrants, no organomegaly or masses EXTR: warm, well perfused, no C/C/E SKIN: warm and dry, no rash NEURO: Alert and oriented x 3, nonfocal Objective Labs Result Diagrams: 06/02/22 12:38 06/02/22 05:16 Labs: Laboratory Results - last 24 hr 06/02/22 06/02/22 06/02/22 05:16 05:16 12:38 WBC 5.6 RBC 3.55 L Hgb 7.9 L 9.1 L Hct 25.5 L 28.8 L MCV 71.7 L MCH 22.3 L MCHC 31.0 RDW 28.3 H Plt Count 189 Neut % (Auto) 61.1 Lymph % (Auto) 22.7 L [place] % (Auto) 9.2 Eos % (Auto) 6.3 H Baso % (Auto) 0.7 Neut # (Auto) 3400 Lymph # (Auto) 1300 [place] # (Auto) 500 Eos # (Auto) 400 Baso # (Auto) 0 Platelet Estimate Adequate on smear RBC Morphology See below Hypochromasia 2+ H Poikilocytosis 2+ H Anisocytosis 3+ H Schistocytes 1+ H Sodium 138 Potassium 3.8 Chloride 109 H Carbon Dioxide 24 BUN 16 Creatinine 0.95 Estimated GFR 58 L BUN/Creatinine Ratio 16.8 Glucose 104 Calcium 8.0 L Total Bilirubin 0.6 AST 23 ALT 16 Alkaline Phosphatase 65 Total Protein 5.5 L Albumin 3.3 L Globulin 2.2 Albumin/Globulin Ratio 1.5 PFSH Medical History Abdominal pain Abnormal Pap smear of cervix Adrenal nodule Anal fissure Body mass index (BMI) of 30.0 to 39.9 (03/27/16) Carotid artery plaque (~10/29/19) Cellulitis (~2006) Cellulitis of right leg Cellulitis of right lower extremity without foot Chronic venous insufficiency (10/29/10) Common cold Eczema Foot pain Heel pain Hemorrhoids History of frequent headaches Hyperlipidemia Hypertension (10/29/10) Hypothyroidism Lichen sclerosus Measles (~194) Migraines Mild cognitive impairment (~11/2019) Obstructive sleep apnea hypopnea, mild Peripheral vascular disease Plantar fasciitis 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) Shoulder pain Varicosities of leg Vision abnormalities Vitamin D deficiency Surgical History History of esophagogastroduodenoscopy (EGD) (05/13/17) S/P TAVR (transcatheter aortic valve replacement) Sigmoidoscopy performed Status post appendectomy Status post breast biopsy Status post colonoscopy (05/13/17) Status post sclerotherapy of varicose veins Family History Brother Heart disease Hypertension Father Heart disease Hypertension Heart attack Mother Osteoarthritis Sister Age: 84 Heart attack Heart disease Hypertension Brother Cancer Social History household members: none Smoking Status: Former smoker alcohol intake: current Discharge Plan Discharge Plan Patient Disposition: Home Provider Discharge Comment: You were admitted to the hospital for anemia. This improved with stopping your coumadin and transfusion. Nothing was found in your stomach, and you should follow up soon as an outpatient with GI or surgery for colonoscopy and further evaluation. Warfarin should be held until further workup performed. Please follow up with PCP next week as already scheduled. Keep an eye on your BP at home. If your top blood pressure number is >140 for a couple of days, resume your usual dose of lisinopril, and if still elevated then resume your triamterene - HCTZ, but for now continue to hold these medications. Discharge orders & Medications Prescriptions: New pantoprazole 40 mg Tablet,Delayed Release (Dr/Ec) 40 mg PO 0700 30 Days Qty: 30 0RF lisinopril 10 mg Tablet 2.5 mg PO DAILY 30 Days Qty: 7.5 0RF Continued (DME) handicap placard See Rx Instructions .Route .MEDSUPPLY Qty: 1 0RF Rx Instructions: As directed levothyroxine 125 mcg tablet 125 mcg PO DAILY Qty: 30 0RF metoprolol succinate 25 mg tablet extended release 24 hr 25 mg PO DAILY diphenhydramine HCl [Allergy (diphenhydramine)] 25 mg capsule 25 mg PO BEDTIME PRN (Reason: Rash) melatonin 5 mg tablet,chewable 5 mg PO BEDTIME PRN (Reason: supplement) loratadine [Allergy Relief (loratadine)] 10 mg tablet 10 mg PO DAILY simvastatin 20 mg tablet See Rx Instructions .ROUTE .COMPLEX Qty: 90 0RF Dose Instruction: TAKE 1 TABLET BY MOUTH EVERY EVENING Rx Instructions: TAKE 1 TABLET BY MOUTH EVERY EVENING acetaminophen 500 mg Tablet 500 mg PO BID Vitamin B12+ Vitamin C 1 tab PO DAILY Discontinued lisinopril 10 mg tablet 5 mg PO DAILY triamterene-hydrochlorothiazid 75-50 mg tablet See Rx Instructions .ROUTE .COMPLEX Qty: 90 3RF Dose Instruction: TAKE 1 TABLET DAILY Rx Instructions: TAKE 1 TABLET DAILY warfarin 5 mg tablet 2.5 mg PO DAILY Label Comments: Man[facility] by [facility] Rx Instructions: 2-3 tabs po daily as directed aspirin [Adult Aspirin Regimen] 81 mg tablet,delayed release (DR/EC) 81 mg PO DAILY Follow up/Referrals: Fani Demarco DO [Primary Care Provider] - Diet/Activity/Treatments Diet: Diet as Tolerated Activity: As tolerated Visit Report/Discharge Packet Instructions: DI for Gastroesophageal Reflux Disease (GERD), Gastrointestinal Bleeding, Pantoprazole, Lisinopril Discharge Data Primary Care Provider: Fani Demarco Attending Provider: Ct Reyes
--- NOTE | 2022-06-02 16:22 | CM.DPNOTE ---
Discharge Planning Note: Hemoglobin increased, improving status. Plan: Home when medically cleared. Sister will transport. Heidi Lang RN/DCP
== END 2022-06-02 18:20 | disposition home or self-care (01) | DRG 377 ==
LOC: ED 22:23 → AC 23:58
PROVIDERS: Family Medicine; Internal Medicine; Surgery; Admitting Provider Nurse Practitioner Family; Emergency Provider Emergency Medicine; Family Provider Internal Medicine Interventional Cardiology; PCP Family Medicine; Referring Provider Emergency Medicine; Visit Provider Nurse Practitioner Family
PROC: 0DJ08ZZ Inspection of Upper Intestinal Tract, Via Natural or Artificial Opening Endoscopic (ICD-10-PCS; CPT 43235; principal; 2022-05-31 13:15)
DX: K92.2 Gastrointestinal hemorrhage, unspecified (principal); I50.33 Acute on chronic diastolic (congestive) heart failure; D62 Acute posthemorrhagic anemia; E44.0 Moderate protein-calorie malnutrition; I50.30 Unspecified diastolic (congestive) heart failure; I11.0 Hypertensive heart disease with heart failure; R79.1 Abnormal coagulation profile; I25.10 Atherosclerotic heart disease of native coronary artery without angina pectoris; E03.9 Hypothyroidism, unspecified; E78.5 Hyperlipidemia, unspecified; Z95.2 Presence of prosthetic heart valve; Z87.891 Personal history of nicotine dependence; Z68.29 Body mass index [BMI] 29.0-29.9, adult; Z79.01 Long term (current) use of anticoagulants; M47.816 Spondylosis without myelopathy or radiculopathy, lumbar region; M54.9 Dorsalgia, unspecified; R10.9 Unspecified abdominal pain
CPT/HCPCS: 36415; 36430; 43235; 72110; 80053; 81001; 82043; 82150; 82272; 82550; 82570; 83690; 83735; 83880; 84439; 84443; 84484; 85014; 85018; 85025; 85610; 85730; 86850; 86900; 86901; 87086; 87635; 93005; 93010; 96365; 96375; 99232; 99285; 99291; C9803; G0378; P9016; C9113; J1940; J2704; J3430

== ENCOUNTER → 2022-07-08 13:48 | Outpatient (CLI) | payer MEDICARE, SELFPAY ==
[2022-05-30 23:47] VITALS: BMI 30.2
[2022-07-08 14:16] LABS: Add Manual Diff / Slide Review NO; Basophils Absolute Auto 100 /uL (0-100); Basophils Percent Auto 1.3 % (0-2); Eosinophils Absolute Auto 100 /uL (0-450); Eosinophils Percent Auto 3.3 % (2-4); Hematocrit 25.8 % (36-46); Hemoglobin 7.9 g/dL (12.0-16.0); Lymphocytes Absolute Auto 800 /uL (1100-4500); Lymphocytes Percent Auto 18.6 % (25-40); Mean Corpuscular HGB Conc 30.7 % (30-36); Mean Corpuscular Hemoglobin 22.1 PG (26-34); Mean Corpuscular Volume 71.9 fL (80-100); Monocytes Absolute Auto 400 /uL (0-900); Monocytes Percent Auto 9.6 % (3-14); Neutrophils Absolute Auto 2900 /uL (1500-7000); Neutrophils Percent Auto 67.2 % (50-75); Platelet Count 165 X10^3/uL (150-400); Red Blood Cell Count 3.59 X10^6/uL (4.0-5.2); Red Cell Distribution Width 25.5 % (11.6-14.8); White Blood Cell Count 4.2 X10^3/uL (4.5-11.0)
[2022-07-08 14:39] LABS: HEMOLYSIS < 15 (0-50); Iron 19 ug/dL (37-170)
[2022-07-08 14:40] LABS: Alanine Aminotransferase 16 IU/L (<35); Albumin 3.6 g/dL (3.5-5.0); Albumin Globulin Ratio 1.4 (1.0-2.8); Alkaline Phosphatase 57 U/L (38-126); Aspartate Aminotransferase 22 IU/L (14-36); BUN Creatinine Ratio 17.9 (6-22); Bilirubin Total 0.4 mg/dL (0.2-1.3); Blood Urea Nitrogen 14 mg/dL (7-17); Calcium 8.6 mg/dL (8.4-10.2); Carbon Dioxide 22 mmol/L (22-32); Chloride 110 mmol/L (98-107); Estimated Glomerular Filt Rate > 60 mL/min (>60); Globulin 2.5 g/dL (1.7-4.1); Glucose 110 mg/dL (80-110); HEMOLYSIS < 15 (0-50); Potassium 3.8 mmol/L (3.4-5.1); Sodium 140 mmol/L (137-145); Total Protein 6.1 g/dL (6.3-8.2)
[2022-07-08 14:41] LABS: Anisocytosis 2+; Hypochromasia 1+; Microcytosis 2+
[2022-07-08 14:42] LABS: Schistocytes 1+
[2022-07-08 14:46] LABS: Transferrin 288 mg/dL (206-381)
[2022-07-08 14:49] LABS: INR 1.3 (0.9-1.3); Prothrombin Time 14.8 SECONDS (10.1-12.7)
[2022-07-10 14:53] LABS: Percent Iron Saturation 5 % (15-50); Total Iron Binding Capacity 416 ug/dL (265-497)
== END ==
PROVIDERS: Family Provider Internal Medicine Interventional Cardiology; PCP Family Medicine; Referring Provider Family Medicine; Visit Provider Family Medicine
DX: K92.2 Gastrointestinal hemorrhage, unspecified (principal); Z79.01 Long term (current) use of anticoagulants; Z95.2 Presence of prosthetic heart valve; I10 Essential (primary) hypertension
CPT/HCPCS: 36415; 80053; 83540; 83550; 85025; 85610

== ENCOUNTER → 2022-08-22 16:01 | Outpatient (CLI) | payer MEDICARE, SELFPAY ==
[2022-05-30 23:47] VITALS: BMI 30.2
[2022-08-22 16:58] LABS: HEMOLYSIS < 15 (0-50); Iron 12 ug/dL (37-170)
[2022-08-22 17:03] LABS: Alanine Aminotransferase 17 IU/L (<35); Albumin 3.8 g/dL (3.5-5.0); Albumin Globulin Ratio 1.7 (1.0-2.8); Alkaline Phosphatase 65 U/L (38-126); Aspartate Aminotransferase 27 IU/L (14-36); BUN Creatinine Ratio 21.1 (6-22); Bilirubin Total 0.4 mg/dL (0.2-1.3); Blood Urea Nitrogen 16 mg/dL (7-17); Calcium 8.4 mg/dL (8.4-10.2); Carbon Dioxide 23 mmol/L (22-32); Chloride 109 mmol/L (98-107); Estimated Glomerular Filt Rate > 60 mL/min (>60); Globulin 2.3 g/dL (1.7-4.1); Glucose 99 mg/dL (80-110); HEMOLYSIS < 15 (0-50); Potassium 4.1 mmol/L (3.4-5.1); Sodium 140 mmol/L (137-145); Total Protein 6.1 g/dL (6.3-8.2)
[2022-08-22 17:09] LABS: Percent Iron Saturation 3 % (15-50); Total Iron Binding Capacity 430 ug/dL (265-497); Transferrin 296 mg/dL (206-381)
[2022-08-22 17:48] LABS: Vitamin B12 297 pg/mL (239-931)
== END ==
PROVIDERS: Family Provider Internal Medicine Interventional Cardiology; PCP Family Medicine; Referring Provider Family Medicine; Visit Provider Family Medicine
DX: E53.8 Deficiency of other specified B group vitamins (principal); I10 Essential (primary) hypertension; Z95.2 Presence of prosthetic heart valve; D64.9 Anemia, unspecified
CPT/HCPCS: 36415; 80053; 82607; 83540; 83550

== ENCOUNTER → 2022-08-23 15:50 | Outpatient (CLI) | payer MEDICARE, SELFPAY ==
[2022-05-30 23:47] VITALS: BMI 30.2
--- NOTE | 2022-08-23 15:53 | DI.RAD.S_ITS ---
PROCEDURE: XR THORACIC SPINE 3V INDICATIONS: Localizing mid back pain TECHNIQUE: 3 views of the thoracic spine were acquired. COMPARISON: None. FINDINGS: Bones: No fractures or dislocations. No suspicious bony lesions. 12 pairs of ribs are noted, and appear intact where visualized. Slight leftward curvature of the thoracic spine and convex right scoliosis of the visualized lumbar spine. Multilevel disc height loss. Soft tissues: No paravertebral stripe thickening. IMPRESSION: 1. No acute, displaced fracture or traumatic subluxation. 2. Mild, multilevel degenerative disc disease. Dictated by: Moo Justice M.D. on 08/23/2022 at 16:22 Approved by: Moo Justice M.D. on 08/23/2022 at 16:24
== END ==
PROVIDERS: Family Provider Internal Medicine Interventional Cardiology; PCP Family Medicine; Referring Provider Family Medicine; Visit Provider Family Medicine
DX: M51.34 Other intervertebral disc degeneration, thoracic region (principal); M43.06 Spondylolysis, lumbar region; D64.9 Anemia, unspecified; I10 Essential (primary) hypertension; E78.00 Pure hypercholesterolemia, unspecified; Z79.01 Long term (current) use of anticoagulants; Z95.2 Presence of prosthetic heart valve
CPT/HCPCS: 36415; 72072; 85025

== ENCOUNTER → 2022-08-23 15:55 | Outpatient (CLI) | payer MEDICARE, SELFPAY ==
[2022-05-30 23:47] VITALS: BMI 30.2
[2022-08-23 16:45] LABS: Add Manual Diff / Slide Review NO; Basophils Absolute Auto 100 /uL (0-100); Basophils Percent Auto 1.4 % (0-2); Eosinophils Absolute Auto 200 /uL (0-450); Eosinophils Percent Auto 3.5 % (2-4); Hematocrit 24.8 % (36-46); Hemoglobin 7.5 g/dL (12.0-16.0); Lymphocytes Absolute Auto 1100 /uL (1100-4500); Mean Corpuscular HGB Conc 30.4 % (30-36); Mean Corpuscular Hemoglobin 20.8 PG (26-34); Mean Corpuscular Volume 68.3 fL (80-100); Monocytes Absolute Auto 500 /uL (0-900); Neutrophils Absolute Auto 3600 /uL (1500-7000); Neutrophils Percent Auto 66.1 % (50-75); Platelet Count 192 X10^3/uL (150-400); Red Blood Cell Count 3.63 X10^6/uL (4.0-5.2); Red Cell Distribution Width 20.9 % (11.6-14.8); White Blood Cell Count 5.5 X10^3/uL (4.5-11.0)
[2022-08-23 17:18] LABS: Anisocytosis 3+; Microcytosis 2+; Poikilocytosis 3+
[2022-08-23 17:19] LABS: Acanthocytes 1+; Hypochromasia 1+; Ovalocytes 2+; Schistocytes 1+; Tear Drop Cells 1+
== END ==
PROVIDERS: Family Provider Internal Medicine Interventional Cardiology; PCP Family Medicine; Referring Provider Family Medicine; Visit Provider Family Medicine
DX: D64.9 Anemia, unspecified (principal); E78.00 Pure hypercholesterolemia, unspecified; M43.06 Spondylolysis, lumbar region; Z79.01 Long term (current) use of anticoagulants
CPT/HCPCS: 36415; 85025

== ENCOUNTER → 2022-09-02 15:18 | Outpatient (CLI) | payer MEDICARE, SELFPAY ==
[2022-05-30 23:47] VITALS: BMI 30.2
[2022-09-02 16:33] LABS: Prothrombin Time 62.2 SECONDS (10.1-12.7)
[2022-09-02 16:42] LABS: INR 5.3 (0.9-1.3)
== END ==
PROVIDERS: Family Provider Internal Medicine Interventional Cardiology; PCP Family Medicine; Referring Provider Family Medicine; Visit Provider Family Medicine
DX: Z79.01 Long term (current) use of anticoagulants
CPT/HCPCS: 36415; 85610

== ENCOUNTER → 2022-09-03 12:40 | Outpatient (CLI) | payer MEDICARE, SELFPAY ==
[2022-05-30 23:47] VITALS: BMI 30.2
[2022-09-03 13:12] LABS: Add Manual Diff / Slide Review NO; Basophils Absolute Auto 100 /uL (0-100); Basophils Percent Auto 1.8 % (0-2); Eosinophils Absolute Auto 200 /uL (0-450); Eosinophils Percent Auto 4.2 % (2-4); Hematocrit 23.5 % (36-46); Hemoglobin 7.1 g/dL (12.0-16.0); Lymphocytes Absolute Auto 1000 /uL (1100-4500); Mean Corpuscular HGB Conc 30.3 % (30-36); Mean Corpuscular Hemoglobin 20.6 PG (26-34); Monocytes Absolute Auto 400 /uL (0-900); Monocytes Percent Auto 10.6 % (3-14); Neutrophils Absolute Auto 2400 /uL (1500-7000); Neutrophils Percent Auto 58.4 % (50-75); Platelet Count 245 X10^3/uL (150-400); Red Blood Cell Count 3.46 X10^6/uL (4.0-5.2); Red Cell Distribution Width 19.8 % (11.6-14.8); White Blood Cell Count 4.1 X10^3/uL (4.5-11.0)
[2022-09-03 13:42] LABS: Prothrombin Time 59.6 SECONDS (10.1-12.7)
[2022-09-03 13:46] LABS: HEMOLYSIS < 15 (0-50)
[2022-09-03 13:47] LABS: Alanine Aminotransferase 16 IU/L (<35); Albumin 3.6 g/dL (3.5-5.0); Albumin Globulin Ratio 1.6 (1.0-2.8); Alkaline Phosphatase 66 U/L (38-126); Aspartate Aminotransferase 24 IU/L (14-36); BUN Creatinine Ratio 20.5 (6-22); Bilirubin Total 0.4 mg/dL (0.2-1.3); Blood Urea Nitrogen 16 mg/dL (7-17); Calcium 8.7 mg/dL (8.4-10.2); Carbon Dioxide 25 mmol/L (22-32); Chloride 110 mmol/L (98-107); Estimated Glomerular Filt Rate > 60 mL/min (>60); Globulin 2.3 g/dL (1.7-4.1); Glucose 100 mg/dL (80-110); HEMOLYSIS < 15 (0-50); Iron < 10 ug/dL (37-170); Sodium 141 mmol/L (137-145); Total Protein 5.9 g/dL (6.3-8.2)
[2022-09-03 13:52] LABS: INR 5.1 (0.9-1.3)
[2022-09-03 13:57] LABS: Hypochromasia 2+; Microcytosis 2+
[2022-09-03 13:58] LABS: Ovalocytes 1+; Percent Iron Saturation 2 % (15-50); Schistocytes 1+; Total Iron Binding Capacity 409 ug/dL (265-497); Transferrin 283 mg/dL (206-381)
[2022-09-03 13:59] LABS: Anisocytosis 2+
[2022-09-03 14:04] LABS: Free T4, Direct Thyroxine 1.81 ng/dL (0.78-2.19)
[2022-09-03 14:18] LABS: Thyroid Stimulating Hormone 1.02 uIU/mL (0.47-4.68)
[2022-09-03 14:36] LABS: Vitamin B12 238 pg/mL (239-931)
== END ==
PROVIDERS: Family Provider Internal Medicine Interventional Cardiology; PCP Family Medicine; Referring Provider Family Medicine; Visit Provider Family Medicine
DX: E53.8 Deficiency of other specified B group vitamins (principal); K92.2 Gastrointestinal hemorrhage, unspecified; I10 Essential (primary) hypertension; Z79.01 Long term (current) use of anticoagulants; Z86.79 Personal history of other diseases of the circulatory system; Z98.890 Other specified postprocedural states
CPT/HCPCS: 36415; 80053; 82607; 83540; 83550; 84439; 84443; 85025; 85610

== ENCOUNTER → 2022-09-06 15:39 | Outpatient (CLI) | payer MEDICARE, SELFPAY ==
[2022-09-03 13:19] VITALS: BMI 30.2
[2022-09-06 16:39] LABS: Add Manual Diff / Slide Review NO; Basophils Absolute Auto 100 /uL (0-100); Basophils Percent Auto 1.4 % (0-2); Eosinophils Absolute Auto 200 /uL (0-450); Eosinophils Percent Auto 3.2 % (2-4); Hematocrit 25.4 % (36-46); Hemoglobin 7.8 g/dL (12.0-16.0); Lymphocytes Absolute Auto 1200 /uL (1100-4500); Lymphocytes Percent Auto 24.8 % (25-40); Mean Corpuscular HGB Conc 30.5 % (30-36); Mean Corpuscular Hemoglobin 20.8 PG (26-34); Monocytes Absolute Auto 600 /uL (0-900); Monocytes Percent Auto 11.4 % (3-14); Neutrophils Absolute Auto 2900 /uL (1500-7000); Neutrophils Percent Auto 59.2 % (50-75); Platelet Count 258 X10^3/uL (150-400); Red Blood Cell Count 3.74 X10^6/uL (4.0-5.2); Red Cell Distribution Width 19.8 % (11.6-14.8); White Blood Cell Count 4.9 X10^3/uL (4.5-11.0)
[2022-09-06 16:44] LABS: Reticulocyte Count, Percent 1.5 % (1.1-2.6)
[2022-09-06 17:30] LABS: Anisocytosis 1+; Microcytosis 2+; Ovalocytes 2+; Schistocytes 1+
[2022-09-06 17:31] LABS: Hypochromasia 1+; Platelet Estimate Adequate on smear; Poikilocytosis 1+
== END ==
PROVIDERS: Family Provider Internal Medicine Interventional Cardiology; PCP Family Medicine; Referring Provider Family Medicine; Visit Provider Family Medicine
DX: E53.8 Deficiency of other specified B group vitamins (principal); K92.2 Gastrointestinal hemorrhage, unspecified; Z95.2 Presence of prosthetic heart valve
CPT/HCPCS: 36415; 85025; 85045

== ENCOUNTER → 2022-09-19 14:18 | Outpatient (CLI) | payer MEDICARE, SELFPAY ==
[2022-09-03 13:19] VITALS: BMI 30.2
[2022-09-19 14:49] VITALS: BP 128/39; PULSE 68; RESP 16; TEMP 36.7; O2SAT 98
[2022-09-19] MEDS: ferumoxytoL 510 MG in SODIUM CHLORIDE 0.9% 100 ML 234 MG IV (14:55)
[2022-09-19] MEDS: ACETAMINOPHEN 325 MG TABLET 650 MG PO (15:13)
[2022-09-19 16:11] VITALS: BP 138/37; PULSE 57; RESP 16; TEMP 36.5; O2SAT 99
--- NOTE | 2022-09-19 17:11 | PC.NURSE ---
Tolerated iron infusion without infusion reaction. Vitals remained stable. Transferred from recliner to wheelchair with standby assist. Sister driving patient home and wheeled her in wheelchair to car. No c/o itching, chest tightness, or other signs of anaphylaxis during infusion or 30 min post infusion. Left infusion room in wheelchair. No apparent distress.
[2022-09-25] MEDS: ferumoxytoL 510 MG in SODIUM CHLORIDE 0.9% 100 ML 468 MG IV (11:58)
== END ==
PROVIDERS: Family Provider Internal Medicine Interventional Cardiology; PCP Family Medicine; Referring Provider Family Medicine; Visit Provider Family Medicine
DX: D50.9 Iron deficiency anemia, unspecified (principal)
CPT/HCPCS: 96365; Q0138

== ENCOUNTER → 2022-11-02 10:56 | Outpatient (CLI) | payer MEDICARE, SELFPAY ==
[2022-09-03 13:19] VITALS: BMI 30.2
[2022-11-02 11:27] LABS: INR 3.2 (0.9-1.3); Prothrombin Time 36.7 SECONDS (10.1-12.7)
== END ==
PROVIDERS: Family Provider Internal Medicine Interventional Cardiology; PCP Family Medicine; Referring Provider Family Medicine; Visit Provider Family Medicine
DX: I82.409 Acute embolism and thrombosis of unspecified deep veins of unspecified lower extremity (principal)
CPT/HCPCS: 36415; 85610

== ENCOUNTER → 2022-11-18 13:47 | Outpatient (CLI) | payer MEDICARE, SELFPAY ==
[2022-09-03 13:19] VITALS: BMI 30.2
[2022-11-18 14:49] LABS: Add Manual Diff / Slide Review NO; Basophils Absolute Auto 100 /uL (0-100); Basophils Percent Auto 1.5 % (0-2); Eosinophils Absolute Auto 200 /uL (0-450); Eosinophils Percent Auto 4.1 % (2-4); Hematocrit 24.8 % (36-46); Lymphocytes Absolute Auto 1300 /uL (1100-4500); Lymphocytes Percent Auto 23.9 % (25-40); Mean Corpuscular HGB Conc 32.3 % (30-36); Mean Corpuscular Hemoglobin 25.2 PG (26-34); Mean Corpuscular Volume 77.9 fL (80-100); Monocytes Absolute Auto 400 /uL (0-900); Monocytes Percent Auto 6.7 % (3-14); Neutrophils Absolute Auto 3400 /uL (1500-7000); Neutrophils Percent Auto 63.8 % (50-75); Platelet Count 209 X10^3/uL (150-400); Red Blood Cell Count 3.19 X10^6/uL (4.0-5.2); Red Cell Distribution Width 24.1 % (11.6-14.8); White Blood Cell Count 5.3 X10^3/uL (4.5-11.0)
[2022-11-18 15:03] LABS: Alanine Aminotransferase 19 IU/L (<35); Albumin 3.6 g/dL (3.5-5.0); Albumin Globulin Ratio 1.6 (1.0-2.8); Alkaline Phosphatase 95 U/L (38-126); Aspartate Aminotransferase 27 IU/L (14-36); Bilirubin Total 0.3 mg/dL (0.2-1.3); Blood Urea Nitrogen 15 mg/dL (7-17); Calcium 8.5 mg/dL (8.4-10.2); Carbon Dioxide 23 mmol/L (22-32); Chloride 110 mmol/L (98-107); Estimated Glomerular Filt Rate > 60 mL/min (>60); Globulin 2.3 g/dL (1.7-4.1); Glucose 96 mg/dL (80-110); HEMOLYSIS < 15 (0-50); Potassium 4.1 mmol/L (3.4-5.1); Sodium 139 mmol/L (137-145); Total Protein 5.9 g/dL (6.3-8.2)
[2022-11-18 18:11] LABS: Anisocytosis 3+; Hypochromasia 2+; Microcytosis 1+; Poikilocytosis 1+
[2022-11-18 18:12] LABS: Schistocytes 1+
== END ==
PROVIDERS: Family Provider Internal Medicine Interventional Cardiology; PCP Family Medicine; Referring Provider Family Medicine; Visit Provider Family Medicine
DX: I10 Essential (primary) hypertension (principal); D50.9 Iron deficiency anemia, unspecified
CPT/HCPCS: 36415; 80053; 85025

== ENCOUNTER 2023-02-03 16:42 | Emergency (ER) | payer MEDICARE, SELFPAY ==
[2022-09-03 13:19] VITALS: BMI 30.2
--- NOTE | 2023-02-03 16:43 | DI.CT.S_ITS ---
PROCEDURE: CT HEAD/BRAIN WO CON INDICATIONS: fall on coumadin TECHNIQUE: Noncontrast 4.5 mm thick angled axial sections acquired from the foramen magnum to the vertex, with coronal and sagittal reformats. For radiation dose reduction, the following was used: automated exposure control, adjustment of mA and/or kV according to patient size. COMPARISON: [facility], CT, CT HEAD/BRAIN WO CON, 12/23/2019, 13:32. FINDINGS: Image quality: Excellent. CSF spaces: Basal cisterns are patent. No extra-axial fluid collections. The ventricles are symmetric in size and shape. Brain: No intracranial bleeds or masses. There is cerebral volume loss for age, with resultant ventricular and sulcal prominence. There are periventricular and deep white matter chronic small vessel ischemic changes. There is intracranial internal carotid artery atherosclerosis. Skull and face: Calvarium and visualized facial bones appear intact, without suspicious lesions. Sinuses: Visualized sinuses and mastoids are clear. IMPRESSION: 1. No CT evidence of acute intracranial trauma. 2. No significant soft tissue injury or underlying fracture. 3. Age-appropriate cerebral cortical volume loss and chronic microvascular ischemic changes. Dictated by: Kirsten Arevalo M.D. on 02/03/2023 at 17:09 Approved by: Kirsten Arevalo M.D. on 02/03/2023 at 17:11
--- NOTE | 2023-02-03 16:43 | DI.RAD.S_ITS ---
PROCEDURE: XR CHEST 1V INDICATIONS: fall TECHNIQUE: One view of the chest was acquired. COMPARISON: [facility], CR, XR CHEST 1V, 03/29/2021, 3:00. FINDINGS: Surgical changes and devices: Aortic valvuloplasty cage. Lungs and pleura: Lungs are clear. No pleural effusions or pneumothorax. Mediastinum: Heart size stable at the upper limits of normal. Stable mediastinal contour. Bones and chest wall: No suspicious bony lesions. Overlying soft tissues appear unremarkable. IMPRESSION: No radiographic evidence of acute chest trauma. Dictated by: Kirsten Arevalo M.D. on 02/03/2023 at 17:08 Approved by: Kirsten Arevalo M.D. on 02/03/2023 at 17:09
--- NOTE | 2023-02-03 16:43 | DI.CT.S_ITS ---
PROCEDURE: CT CERVICAL SPINE WO CON INDICATIONS: fall TECHNIQUE: Noncontrast 3 mm thick sections acquired from the skull base to the T4 level. Sagittal and coronal reformats were then constructed. For radiation dose reduction, the following was used: automated exposure control, adjustment of mA and/or kV according to patient size. COMPARISON: None. FINDINGS: Image quality: Excellent. Bones: Intact craniocervical junction. Degenerative changes at the C1-2 interval. Small partially calcified pannus posterior to the dens. C1 is normally aligned on C2. There is degenerative trace anterolisthesis C4 on five, trace retrolisthesis C5 on six, and otherwise normal alignment. Moderate disc height loss C5-6 and C6-7. No vertebral body fractures or posttraumatic subluxation. Soft tissues: Prevertebral soft tissues are normal in thickness. No paravertebral hematomas. No apical pneumothoraces. IMPRESSION: 1. No cervical vertebral body fracture. 2. Multilevel degenerative changes as described. Dictated by: Kirsten Arevalo M.D. on 02/03/2023 at 17:11 Approved by: Kirsten Arevalo M.D. on 02/03/2023 at 17:17
[2023-02-03 17:10] VITALS: BP 155/72; PULSE 70; RESP 18; TEMP 36.2; O2SAT 95; BMI 28.8
--- NOTE | 2023-02-03 17:15 | DI.RAD.S_ITS ---
PROCEDURE: XR ELBOW RT MIN 3V INDICATIONS: glf TECHNIQUE: 3 views of the elbow were acquired. COMPARISON: None. FINDINGS: Bones: No fractures or dislocations. No suspicious bony lesions. Soft tissues: No elbow joint effusion. No suspicious soft tissue calcifications. IMPRESSION: Unremarkable right elbow radiographs Approved by: Cruz Gonzalez M.D. on 02/03/2023 at 17:23
[2023-02-03] MEDS: ACETAMINOPHEN 325 MG TABLET 650 MG PO (18:42)
--- NOTE | 2023-02-03 18:43 | ED.FALL ---
HPI - Fall General Chief Complaint: Fall Stated Complaint: GLF Time Seen by Provider: 02/03/23 16:43 Source: patient Mode of arrival: EMS Limitations: no limitations History of Present Illness HPI Narrative: Patient is an 87-year-old female is here for evaluation of a fall. She is on anticoagulation. She did hit her head. No loss of consciousness. She states that her only complaint is some discomfort to her right elbow. She states she occasionally loses her balance. She was in the bathroom. She would a bowel movement urinated. States she stood up. She did not feel lightheaded or dizzy. She went into the bedroom to try to change her clothes when she stated that she just lost her balance and fell over backwards. She is no neck pain. All of her imaging studies were ordered and completed prior to my initial evaluation. She states that she was wearing a pair of slippers that were too big for her but she does not necessarily think that she tripped over them. She denied any chest pain or palpitations or lightheadedness or dizziness or nausea vomiting prior to the fall. Related Data Home Medications Medication Instructions Recorded Confirmed Vitamin B12+ Vitamin C 1 tab PO DAILY 02/19/18 11/25/22 acetaminophen 500 mg tablet 500 mg PO BID 02/19/18 11/25/22 loratadine 10 mg tablet (Allergy 10 mg PO DAILY 02/02/20 11/25/22 Relief (loratadine)) metoprolol succinate 25 mg 25 mg PO DAILY 02/02/20 11/25/22 tablet,extended release 24 hr diphenhydramine HCl 25 mg capsule 25 mg PO BEDTIME PRN Rash 09/12/21 11/25/22 (Allergy (diphenhydramine)) melatonin 5 mg chewable tablet 5 mg PO BEDTIME PRN supplement 09/12/21 11/25/22 lisinopril 5 mg tablet 5 mg PO DAILY 11/25/22 11/25/22 triamterene 75 1 tab PO DAILY 11/25/22 11/25/22 mg-hydrochlorothiazide 50 mg tablet Previous Rx's Medication Instructions Recorded handicap placard #1 ea 12/25/20 levothyroxine 125 mcg tablet 125 mcg PO DAILY #90 tabs 08/01/22 simvastatin 20 mg tablet See Rx Instructions .Route 08/23/22 .COMPLEX #90 tabs tramadol 50 mg tablet 50 mg PO TID PRN pain #60 tabs 09/06/22 ferumoxytol 510 mg/17 mL (30 510 mg (17 mL) IV .Q3-8D 4 days 11/21/22 mg/mL) intravenous solution #17 mL (Feraheme) warfarin 1 mg tablet See Rx Instructions PO DAILY #90 01/28/23 tabs warfarin 5 mg tablet See Rx Instructions PO DAILY #90 01/28/23 tabs Allergies Allergy/AdvReac Type Severity Reaction Status Date / Time codeine [CODEINE] Allergy Mild NAUSEA, Verified 11/25/22 13:38 VOMITING morphine [MORPHINE] Allergy Mild NAUSEA, Verified 11/25/22 13:38 VOMITING adhesive tape AdvReac Intermediate skin Verified 11/25/22 13:38 irritation ciprofloxacin [From CIPRO] AdvReac Intermediate Light Verified 11/25/22 13:38 headed Review of Systems Review of Systems ROS Unobtainable: All systems reviewed & are unremarkable except as noted in HPI and below Patient History Medical History Abdominal pain Abnormal Pap smear of cervix Acquired spondylolysis of lumbar spine Adrenal nodule Anal fissure Body mass index (BMI) of 30.0 to 39.9 (03/27/16) Carotid artery plaque (~10/29/19) Cellulitis (~2006) Cellulitis of right leg Cellulitis of right lower extremity without foot Chronic anticoagulation Chronic venous insufficiency (10/29/10) Common cold Eczema Facet arthropathy, lumbar Foot pain Heel pain Hemorrhoids History of frequent headaches Hyperlipidemia Hypertension (10/29/10) Hypertension Hypothyroidism Iron deficiency anemia Lichen sclerosus Lumbosacral spondylosis with radiculopathy Measles (~194) Migraines Mild cognitive impairment (~11/2019) Obstructive sleep apnea hypopnea, mild Peripheral vascular disease Plantar fasciitis 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) Shoulder pain Spondylolisthesis at L4-L5 level Thoracic kyphosis Varicosities of leg Vision abnormalities Vitamin D deficiency Surgical History History of esophagogastroduodenoscopy (EGD) (05/13/17) S/P TAVR (transcatheter aortic valve replacement) Sigmoidoscopy performed Status post appendectomy Status post breast biopsy Status post colonoscopy (05/13/17) Status post sclerotherapy of varicose veins Family History Brother Heart disease Hypertension Father Heart disease Hypertension Heart attack Mother Osteoarthritis Sister Age: 85 Heart attack Heart disease Hypertension Brother Cancer Social History household members: none Smoking Status: Former smoker alcohol intake: current Smoking Status: Former smoker alcohol intake frequency: holidays/special occasions only Substance Use Type: does not use Exam Initial Vital Signs Initial Vital Signs: Vital Signs Temperature 97.2 F L 02/03/23 17:10 Pulse Rate 70 02/03/23 17:10 Respiratory Rate 18 02/03/23 17:10 Blood Pressure 155/72 H 02/03/23 17:10 Pulse Oximetry 95 02/03/23 17:10 Oxygen Delivery Method Room Air 02/03/23 17:10 Const General: cooperative, comfortable and No ill appearing HENMT Head: normal to inspection and normocephalic Resp Effort & Inspection: normal respiratory effort Auscultation: clear to auscultation bilaterally Cardio Rate: regular rate Rhythm: regular rhythm Back/Spine/Pelvis Cervical Spine: No cervical spinal tenderness Skin Other: Superficial contusion to the lateral aspect of the right elbow Neuro General: patient alert, patient awake, patient oriented x3 and moves all extremities Speech: speech normal Extrem Other: No lower extremity complaints. No pelvic complaints. She does have full range of motion of her right elbow despite the contusion. Left upper extremities unremarkable. Course Orders Ordered: ED Orders 02/03/23 16:43 CT cervical spine wo con Stat CT head/brain wo con Stat Chest [XR chest 1V] Stat 02/03/23 17:15 XR elbow RT min 3V Stat Discontinued Medications Acetaminophen (Acetaminophen 325 Mg Tablet) 650 mg PO NOW ONE Stop: 02/03/23 18:18 Last Admin: 02/03/23 18:42 Dose: 650 mg Documented By: STEPHANI Vital Signs Vital signs: Vital Signs - 8 hr 02/03/23 17:10 Temperature 97.2 F L Pulse Rate 70 Respiratory Rate 18 Blood Pressure 155/72 H Pulse Oximetry 95 Oxygen Delivery Method Room Air MDM - Fall Lab Data Attestation: I reviewed the patient's lab results. Labs: Urine Dip Bedside Urine Glucose Negative Bedside Urine Bilirubin - Negative Bedside Urine Ketone - Negative Urine Specific [place] 1.015 Bedside Urine Occult Blood - Negative Bedside Urine pH 6.0 Bedside Urine Protein - Negative Bedside Urine Urobilinogen - Negative Bedside Urine Nitrite - Negative Bedside Urine Leukocytes - Negative Esterase Imaging Data CT - cervical spine: Radiologist's Impression: PROCEDURE:? CT CERVICAL SPINE WO CON ? INDICATIONS:? fall ? TECHNIQUE:? Noncontrast 3 mm thick sections acquired from the skull base to the T4 level.? Sagittal and coronal reformats were then constructed.? For radiation dose reduction, the following was used:? automated exposure control, adjustment of mA and/or kV according to patient size.? ? COMPARISON:? None. ? FINDINGS:? Image quality:? Excellent.? ? Bones:? Intact craniocervical junction.? Degenerative changes at the C1-2 interval.? Small partially calcified pannus posterior to the dens.? C1 is normally aligned on C2.? There is degenerative trace anterolisthesis C4 on five, trace retrolisthesis C5 on six, and otherwise normal alignment.? Moderate disc height loss C5-6 and C6-7. ? No vertebral body fractures or posttraumatic subluxation. ? Soft tissues:? Prevertebral soft tissues are normal in thickness.? No paravertebral hematomas.? No apical pneumothoraces.? ? ? IMPRESSION:? ? 1. No cervical vertebral body fracture. ? 2. Multilevel degenerative changes as described.? Chest x-ray: Radiologist's Impression: PROCEDURE:? XR CHEST 1V ? INDICATIONS:? fall ? TECHNIQUE:? One view of the chest was acquired.? ? COMPARISON:? [facility], , XR CHEST 1V, 03/29/2021, 3:00. ? FINDINGS:? ? Surgical changes and devices:? Aortic valvuloplasty cage. ? Lungs and pleura:? Lungs are clear.? No pleural effusions or pneumothorax.? ? Mediastinum:? Heart size stable at the upper limits of normal.? Stable mediastinal contour. ? Bones and chest wall:? No suspicious bony lesions.? Overlying soft tissues appear unremarkable.? ? IMPRESSION:? No radiographic evidence of acute chest trauma. CT scan - head: Radiologist's Impression: PROCEDURE:? CT HEAD/BRAIN WO CON ? INDICATIONS:? fall on coumadin ? TECHNIQUE:? Noncontrast 4.5 mm thick angled axial sections acquired from the foramen magnum to the vertex, with coronal and sagittal reformats.? For radiation dose reduction, the following was used:? automated exposure control, adjustment of mA and/or kV according to patient size.? ? COMPARISON:? [facility], CT, CT HEAD/BRAIN WO JUAN, 12/23/2019, 13:32. ? FINDINGS:? Image quality:? Excellent.? ? CSF spaces:? Basal cisterns are patent.? No extra-axial fluid collections.? The ventricles are symmetric in size and shape.? ? Brain:? No intracranial bleeds or masses.? There is cerebral volume loss for age, with resultant ventricular and sulcal prominence.? There are periventricular and deep white matter chronic small vessel ischemic changes.? There is intracranial internal carotid artery atherosclerosis.? ? Skull and face:? Calvarium and visualized facial bones appear intact, without suspicious lesions.? ? Sinuses:? Visualized sinuses and mastoids are clear.? ? IMPRESSION:? ? 1. No CT evidence of acute intracranial trauma. ? 2. No significant soft tissue injury or underlying fracture.? ? 3. Age-appropriate cerebral cortical volume loss and chronic microvascular ischemic changes.?? Extremity x-ray #1: Radiologist's Impression: PROCEDURE:? XR ELBOW RT MIN 3V ? INDICATIONS:? glf ? TECHNIQUE:? 3 views of the elbow were acquired.? ? COMPARISON:? None. ? FINDINGS:? ? Bones:? No fractures or dislocations.? No suspicious bony lesions.? ? Soft tissues:? No elbow joint effusion.? No suspicious soft tissue calcifications.? ? ? IMPRESSION:? Unremarkable right elbow radiographs MDM Narrative Medical decision making narrative: Radiologic studies show no acute injuries. The contusion of the right elbow does not need specific intervention here in the ER. Patient states she occasionally gets lightheaded and falls. I have low suspicion for CVA/TIA. Low suspicion for arrhythmia. We will have her continue to take all of her medications as directed and contact her primary doctor for follow-up. She was given return precautions. She expressed understanding and agreement. Discharge Plan Departure Patient Disposition: Home Clinical Impression: Contusion of arm, right, Fall Instructions: How to Prevent Falls Activity Restrictions/Additional Instructions: I recommend you continue to take all of your medications as directed. You can take Tylenol for any discomfort. Return to the emergency department for new symptoms. Prescriptions: No Action (DME) handicap dimas See Rx Instructions .Route .MEDSUPPLY Qty: 1 0RF Rx Instructions: As directed levothyroxine 125 mcg tablet 125 mcg PO DAILY Qty: 90 3RF ferumoxytol [Feraheme] 510 mg/17 mL (30 mg/mL) solution 510 mg IV .Q3-8D 4 Days Qty: 17 1RF Rx Instructions: administer at a rate of up to 1 mL /sec (30 mg /sec ). Give second dose 3-8 days after first dose. Repeat after 30 days. warfarin 1 mg tablet See Rx Instructions PO DAILY Qty: 90 1RF Rx Instructions: Take one 1mg tab in the evening along with one 5mg tab for a total of 6mg each evening. warfarin 5 mg tablet See Rx Instructions PO DAILY Qty: 90 1RF Rx Instructions: Take one 5mg tab each evening along with one 1mg tablet for a total of 6mg each evening metoprolol succinate 25 mg tablet extended release 24 hr 25 mg PO DAILY diphenhydramine HCl [Allergy (diphenhydramine)] 25 mg capsule 25 mg PO BEDTIME PRN (Reason: Rash) melatonin 5 mg tablet,chewable 5 mg PO BEDTIME PRN (Reason: supplement) loratadine [Allergy Relief (loratadine)] 10 mg tablet 10 mg PO DAILY tramadol 50 mg tablet 50 mg PO TID PRN (Reason: pain) Qty: 60 1RF simvastatin 20 mg tablet See Rx Instructions .ROUTE .COMPLEX Qty: 90 3RF Dose Instruction: TAKE 1 TABLET BY MOUTH EVERY EVENING Rx Instructions: TAKE 1 TABLET BY MOUTH EVERY EVENING acetaminophen 500 mg Tablet 500 mg PO BID Vitamin B12+ Vitamin C 1 tab PO DAILY triamterene-hydrochlorothiazid 75-50 mg tablet 1 tab PO DAILY lisinopril 5 mg tablet 5 mg PO DAILY Referrals: Mike Myers, [Primary Care Provider] - Stand Alone Forms: Patient Portal/API
== END 2023-02-03 19:30 | disposition home or self-care (01) ==
PROVIDERS: Emergency Provider Emergency Medicine; Family Provider Internal Medicine Interventional Cardiology; PCP Family Medicine
DX: S50.01XA Contusion of right elbow, initial encounter (principal); W18.30XA Fall on same level, unspecified, initial encounter; Z79.01 Long term (current) use of anticoagulants
CPT/HCPCS: 70450; 71045; 72125; 73080; 81003; 99283; 99284

== ENCOUNTER → 2023-02-06 13:26 | Outpatient (CLI) | payer MEDICARE, SELFPAY ==
[2022-09-03 13:19] VITALS: BMI 30.2
[2023-02-06 21:46] LABS: INR 6.6 (0.9-1.3); Prothrombin Time 77.6 SECONDS (10.1-12.7)
== END ==
PROVIDERS: Family Provider Internal Medicine Interventional Cardiology; PCP Family Medicine; Referring Provider Family Medicine; Visit Provider Family Medicine
DX: I82.409 Acute embolism and thrombosis of unspecified deep veins of unspecified lower extremity (principal)
CPT/HCPCS: 36415; 85610

== ENCOUNTER → 2023-02-07 17:14 | Outpatient (CLI) | payer MEDICARE, SELFPAY ==
[2022-09-03 13:19] VITALS: BMI 30.2
[2023-02-07 18:18] LABS: Basophils Absolute Auto 100 /uL (0-100); Basophils Percent Auto 1.2 % (0-2); Eosinophils Absolute Auto 100 /uL (0-450); Lymphocytes Absolute Auto 1300 /uL (1100-4500); Lymphocytes Percent Auto 28.6 % (25-40); Mean Corpuscular HGB Conc 30.2 % (30-36); Mean Corpuscular Hemoglobin 19.3 PG (26-34); Mean Corpuscular Volume 63.7 fL (80-100); Monocytes Absolute Auto 400 /uL (0-900); Monocytes Percent Auto 8.7 % (3-14); Neutrophils Absolute Auto 2600 /uL (1500-7000); Neutrophils Percent Auto 58.5 % (50-75); Platelet Count 195 X10^3/uL (150-400); Red Blood Cell Count 3.08 X10^6/uL (4.0-5.2); Red Cell Distribution Width 19.1 % (11.6-14.8); White Blood Cell Count 4.5 X10^3/uL (4.5-11.0)
[2023-02-07 18:59] LABS: HEMOLYSIS < 15 (0-50); Iron 19 ug/dL (37-170)
[2023-02-07 19:05] LABS: Alanine Aminotransferase 13 IU/L (<35); Albumin 3.6 g/dL (3.5-5.0); Albumin Globulin Ratio 1.6 (1.0-2.8); Alkaline Phosphatase 54 U/L (38-126); Aspartate Aminotransferase 23 IU/L (14-36); BUN Creatinine Ratio 17.5 (6-22); Bilirubin Total 0.4 mg/dL (0.2-1.3); Blood Urea Nitrogen 14 mg/dL (7-17); Calcium 8.4 mg/dL (8.4-10.2); Carbon Dioxide 24 mmol/L (22-32); Chloride 111 mmol/L (98-107); Estimated Glomerular Filt Rate > 60 mL/min (>60); Globulin 2.3 g/dL (1.7-4.1); Glucose 99 mg/dL (80-110); HEMOLYSIS < 15 (0-50); Potassium 4.1 mmol/L (3.4-5.1); Sodium 139 mmol/L (137-145); Total Protein 5.9 g/dL (6.3-8.2)
[2023-02-07 19:10] LABS: Percent Iron Saturation 5 % (15-50); Total Iron Binding Capacity 413 ug/dL (265-497); Transferrin 282 mg/dL (206-381)
[2023-02-07 19:50] LABS: Vitamin B12 245 pg/mL (239-931)
[2023-02-07 19:51] LABS: Add Manual Diff / Slide Review SLIDE REVIEW; Hematocrit 19.6 % (36-46); Hemoglobin 5.9 g/dL (12.0-16.0)
[2023-02-07 19:52] LABS: Anisocytosis 1+; Microcytosis 3+
[2023-02-07 19:53] LABS: Hypochromasia 2+; Schistocytes 1+; Target Cells 1+
== END ==
PROVIDERS: Family Provider Internal Medicine Interventional Cardiology; PCP Family Medicine; Referring Provider Family Medicine; Visit Provider Family Medicine
DX: E53.8 Deficiency of other specified B group vitamins (principal); D50.9 Iron deficiency anemia, unspecified; E03.9 Hypothyroidism, unspecified; I10 Essential (primary) hypertension
CPT/HCPCS: 36415; 80053; 82607; 83540; 83550; 85025

== ENCOUNTER 2023-02-08 12:43 | Observation (INO) | payer MEDICARE, SELFPAY ==
[2022-09-03 13:19] VITALS: BMI 30.2
[2023-02-08] VITALS (30 sets, daily range): BP systolic 127–203; BP diastolic 54–78; PULSE 61–77; RESP 12–24; TEMP 35.9–36.7; O2SAT 93–99; BMI 28.8
[2023-02-08 13:41] LABS: Add Manual Diff / Slide Review NO; Basophils Absolute Auto 0 /uL (0-100); Basophils Percent Auto 1.2 % (0-2); Eosinophils Absolute Auto 100 /uL (0-450); Eosinophils Percent Auto 2.8 % (2-4); Lymphocytes Absolute Auto 1200 /uL (1100-4500); Lymphocytes Percent Auto 29.7 % (25-40); Mean Corpuscular HGB Conc 30.2 % (30-36); Mean Corpuscular Hemoglobin 19.2 PG (26-34); Mean Corpuscular Volume 63.8 fL (80-100); Monocytes Absolute Auto 300 /uL (0-900); Monocytes Percent Auto 8.5 % (3-14); Neutrophils Absolute Auto 2400 /uL (1500-7000); Neutrophils Percent Auto 57.8 % (50-75); Platelet Count 196 X10^3/uL (150-400); Red Blood Cell Count 2.93 X10^6/uL (4.0-5.2); Red Cell Distribution Width 19.2 % (11.6-14.8); White Blood Cell Count 4.1 X10^3/uL (4.5-11.0)
[2023-02-08 13:43] LABS: Hemoglobin 5.6 g/dL (12.0-16.0); Prothrombin Time 68.2 SECONDS (10.1-12.7)
[2023-02-08 13:44] LABS: Hematocrit 18.7 % (36-46)
[2023-02-08 13:46] LABS: INR 5.8 (0.9-1.3)
[2023-02-08 13:48] LABS: BUN Creatinine Ratio 20.5 (6-22); Blood Urea Nitrogen 16 mg/dL (7-17); Calcium 8.4 mg/dL (8.4-10.2); Carbon Dioxide 24 mmol/L (22-32); Chloride 110 mmol/L (98-107); Estimated Glomerular Filt Rate > 60 mL/min (>60); Glucose 102 mg/dL (80-110); HEMOLYSIS < 15 (0-50); Potassium 4.1 mmol/L (3.4-5.1); Sodium 139 mmol/L (137-145)
--- NOTE | 2023-02-08 13:52 | ED.RECABL ---
HPI - Recheck/Abnormal Lab/Rx <Benito Von, DO - Last Filed: 02/09/23 06:50> General Chief Complaint: Recheck/Abnormal Lab/Rx Stated Complaint: dr ref/hemoglobin low Time Seen by Provider: 02/08/23 13:06 Source: patient Mode of arrival: Ambulatory History of Present Illness HPI narrative: 87-year-old female former smoker with history of AFib and TAVR on Coumadin with previous admissions for symptomatic GI bleed presents at the request of her primary care provider after having routine outpatient labs that demonstrated her to have anemia and a super therapeutic INR. She denies any abnormal bleeding such as in her stool or with urine, she is had no vomiting. She denies any trauma or injury. She denies any change in her diet, recent antibiotics or alterations in her dosing regimen. She states that on 2nd thought she might realize that maybe she has been a bit fatigued and worn out for a bit but really did not think much of it and assumed it was just due to her age. She was admitted in May for what was thought to be an upper GI bleed, she had an endoscopy without any significant findings Related Data Home Medications Medication Instructions Recorded Confirmed Vitamin B12+ Vitamin C 1 tab PO DAILY 02/19/18 02/08/23 acetaminophen 500 mg tablet 500 mg PO BID 02/19/18 02/08/23 loratadine 10 mg tablet (Allergy 10 mg PO DAILY 02/02/20 02/08/23 Relief (loratadine)) metoprolol succinate 25 mg 25 mg PO DAILY 02/02/20 02/08/23 tablet,extended release 24 hr diphenhydramine HCl 25 mg capsule 25 mg PO BEDTIME PRN Rash 09/12/21 02/08/23 (Allergy (diphenhydramine)) melatonin 5 mg chewable tablet 5 mg PO BEDTIME PRN supplement 09/12/21 02/08/23 lisinopril 5 mg tablet 5 mg PO DAILY 11/25/22 02/08/23 Previous Rx's Medication Instructions Recorded handicap placard #1 ea 12/25/20 levothyroxine 125 mcg tablet 125 mcg PO DAILY #90 tabs 08/01/22 simvastatin 20 mg tablet See Rx Instructions .Route 08/23/22 .COMPLEX #90 tabs tramadol 50 mg tablet 50 mg PO TID PRN pain #60 tabs 09/06/22 warfarin 1 mg tablet See Rx Instructions PO DAILY #90 01/28/23 tabs warfarin 5 mg tablet See Rx Instructions PO DAILY #90 01/28/23 tabs Allergies Allergy/AdvReac Type Severity Reaction Status Date / Time codeine [CODEINE] Allergy Mild NAUSEA, Verified 02/08/23 13:12 VOMITING morphine [MORPHINE] Allergy Mild NAUSEA, Verified 02/08/23 13:12 VOMITING adhesive tape AdvReac Intermediate skin Verified 02/08/23 13:12 irritation ciprofloxacin [From CIPRO] AdvReac Intermediate Light Verified 02/08/23 13:12 headed Review of Systems <Benito Longoria DO - Last Filed: 02/09/23 06:50> Review of Systems Narrative: GENERAL: See HPI HEENT: Denies sinus pain, ear pain, sore throat, difficulty swallowing, dizziness. RESPIRATORY: See HPI CARDIOVASCULAR: Denies chest pain, palpitations, orthopnea, edema, GASTROINTESTINAL: Denies nausea, vomiting, abdominal pain, diarrhea, constipation, melena. : Denies dysuria, frequency, incontinence, hematuria, urinary retention. MUSCULOSKELETAL: denies weakness, joint pain, or bony pain SKIN: Denies rash, skin lesions, or other NEUROLOGIC: Denies weakness, headache, numbness, change in speech, confusion, seizures, incoordination. PSYCHIATRIC: No concerning psychosocial issues. 12 point review of systems is negative except for those stated above Patient History <Benito Longoria DO - Last Filed: 02/09/23 06:50> Medical History Abdominal pain Abnormal Pap smear of cervix Acquired spondylolysis of lumbar spine Adrenal nodule Anal fissure Body mass index (BMI) of 30.0 to 39.9 (03/27/16) Carotid artery plaque (~10/29/19) Cellulitis (~2006) Cellulitis of right leg Cellulitis of right lower extremity without foot Chronic anticoagulation Chronic venous insufficiency (10/29/10) Common cold Eczema Facet arthropathy, lumbar Foot pain Heel pain Hemorrhoids History of frequent headaches Hyperlipidemia Hypertension (10/29/10) Hypertension Hypothyroidism Iron deficiency anemia Lichen sclerosus Lumbosacral spondylosis with radiculopathy Measles (~194) Migraines Mild cognitive impairment (~11/2019) Obstructive sleep apnea hypopnea, mild Peripheral vascular disease Plantar fasciitis 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) Shoulder pain Spondylolisthesis at L4-L5 level Thoracic kyphosis Varicosities of leg Vision abnormalities Vitamin D deficiency Surgical History History of esophagogastroduodenoscopy (EGD) (05/13/17) S/P TAVR (transcatheter aortic valve replacement) Sigmoidoscopy performed Status post appendectomy Status post breast biopsy Status post colonoscopy (05/13/17) Status post sclerotherapy of varicose veins Family History Brother Heart disease Hypertension Father Heart disease Hypertension Heart attack Mother Osteoarthritis Sister Age: 85 Heart attack Heart disease Hypertension Brother Cancer Social History household members: none Smoking Status: Former smoker alcohol intake: current Smoking Status: Former smoker alcohol intake frequency: holidays/special occasions only Substance Use Type: does not use Exam <Benito Longoria DO - Last Filed: 02/09/23 06:50> Narrative Exam Narrative: GENERAL: [87] year old patient appears stated age. Well-developed patient, in mild distress. Pale HEAD: Atraumatic. Normocephalic. EYES: Pale conjunctiva Pupils equal round and reactive. Extraocular motions intact. No scleral icterus. No injection or drainage. ENT: Nose without bleeding, purulent drainage. Throat without erythema, tonsillar hypertrophy or exudate. Airway patent. NECK: Trachea midline. Non tender CARDIOVASCULAR: Regular rate and rhythm without murmurs, gallops, or rubs. RESPIRATORY: Clear to auscultation. Breath sounds equal bilaterally. No wheezes, rales, or rhonchi. GASTROINTESTINAL: Abdomen soft, non-tender, nondistended. RECTAL: Heme positive, performed with patient permission and female nursing assistant finance director at the bedside EXTREMITIES: No edema or joint tenderness. BACK: Nontender without deformity or crepitance. No flank tenderness. NEURO: AOx3. SKIN: No rash or erythema of visible areas Initial Vital Signs Initial Vital Signs: Vital Signs Temperature 97.8 F 02/08/23 13:12 Pulse Rate 77 02/08/23 13:12 Respiratory Rate 18 02/08/23 13:12 Blood Pressure 127/54 L 02/08/23 13:12 Pulse Oximetry 98 02/08/23 13:12 Oxygen Delivery Method Room Air 02/08/23 13:12 <Lacie Priest, DO - Last Filed: 02/09/23 01:26> Initial Vital Signs Initial Vital Signs: Vital Signs Temperature 97.8 F 02/08/23 13:12 Pulse Rate 77 02/08/23 13:12 Respiratory Rate 18 02/08/23 13:12 Blood Pressure 127/54 L 02/08/23 13:12 Pulse Oximetry 98 02/08/23 13:12 Oxygen Delivery Method Room Air 02/08/23 13:12 Course <Benito Longoria, DO - Last Filed: 02/09/23 06:50> Orders Ordered: Acetaminophen (Acetaminophen 325 Mg Tablet) 650 mg PO Q4H PRN PRN Reason: Fever/Mild Pain (1-3) Last Admin: 02/08/23 20:48 Dose: 650 mg Documented By: VAL Hydralazine HCl (Hydralazine 25 Mg Tablet) 25 mg PO Q6HR PRN PRN Reason: Hypertension Last Admin: 02/09/23 00:33 Dose: 25 mg Documented By: VAL Levothyroxine Sodium (Levothyroxine 125 Mcg Tablet) 125 mcg PO DAILY@0600 [facility] [place] Last Admin: 02/09/23 06:09 Dose: 125 mcg Documented By: VAL Melatonin (Melatonin 3 Mg Tablet) 6 mg PO BEDTIME PRN PRN Reason: Insomnia Last Admin: 02/09/23 00:33 Dose: 6 mg Documented By: VAL Naloxone HCl (Naloxone 0.4 Mg/Ml Vial) 0.2 mg IV Q2MIN PRN PRN Reason: Opiate Reversal Ondansetron HCl (Ondansetron 4 Mg/2 Ml Inj) 4 mg IV Q6H PRN PRN Reason: Nausea And Vomiting Pantoprazole Sodium (Pantoprazole 40 Mg Vial) 40 mg IV BID [facility] [place] Last Admin: 02/08/23 20:48 Dose: 40 mg Documented By: VAL Discontinued Medications Phytonadione 5 mg/ Sodium (Chloride) 100.5 mls @ 201 mls/hr IV NOW ONE Stop: 02/08/23 13:54 Last Infusion: 02/08/23 16:00 Dose: 0 mls/hr Documented By: Admin: 02/08/23 15:25 Dose: 201 mls/hr Documented By: [facility] Prothrombin Complex Concent ( Human) 3,000 unit/Miscellaneous 120 mls @ 600.919 mls/hr IV NOW ONE; Protocol Stop: 02/08/23 14:07 Last Infusion: 02/08/23 15:05 Dose: 0 unit/kg/min, 0 mls/hr Documented By: [facility] Admin: 02/08/23 14:27 Dose: 3 unit/kg/min, 600.919 mls/hr Documented By: [facility] Consultations Consultation #1: Discussed with Dr. Byrd (general surgery) Vital Signs Vital signs: Vital Signs - 8 hr 02/08/23 13:12 02/08/23 13:49 02/08/23 14:00 Temperature 97.8 F Pulse Rate 77 64 70 Respiratory Rate 18 16 24 Blood Pressure 127/54 L Pulse Oximetry 98 98 96 Oxygen Delivery Method Room Air <Lacie Priest DO - Last Filed: 02/09/23 01:26> Orders Ordered: Acetaminophen (Acetaminophen 325 Mg Tablet) 650 mg PO Q4H PRN PRN Reason: Fever/Mild Pain (1-3) Last Admin: 02/08/23 20:48 Dose: 650 mg Documented By: VAL Hydralazine HCl (Hydralazine 25 Mg Tablet) 25 mg PO Q6HR PRN PRN Reason: Hypertension Last Admin: 02/09/23 00:33 Dose: 25 mg Documented By: VAL Levothyroxine Sodium (Levothyroxine 125 Mcg Tablet) 125 mcg PO DAILY@0600 [facility] [place] Last Admin: 02/09/23 06:09 Dose: 125 mcg Documented By: VAL Melatonin (Melatonin 3 Mg Tablet) 6 mg PO BEDTIME PRN PRN Reason: Insomnia Last Admin: 02/09/23 00:33 Dose: 6 mg Documented By: VAL Naloxone HCl (Naloxone 0.4 Mg/Ml Vial) 0.2 mg IV Q2MIN PRN PRN Reason: Opiate Reversal Ondansetron HCl (Ondansetron 4 Mg/2 Ml Inj) 4 mg IV Q6H PRN PRN Reason: Nausea And Vomiting Pantoprazole Sodium (Pantoprazole 40 Mg Vial) 40 mg IV BID [facility] [place] Last Admin: 02/08/23 20:48 Dose: 40 mg Documented By: VAL Discontinued Medications Phytonadione 5 mg/ Sodium (Chloride) 100.5 mls @ 201 mls/hr IV NOW ONE Stop: 02/08/23 13:54 Last Infusion: 02/08/23 16:00 Dose: 0 mls/hr Documented By: Admin: 02/08/23 15:25 Dose: 201 mls/hr Documented By: MARK Prothrombin Complex Concent ( Human) 3,000 unit/Miscellaneous 120 mls @ 600.919 mls/hr IV NOW ONE; Protocol Stop: 02/08/23 14:07 Last Infusion: 02/08/23 15:05 Dose: 0 unit/kg/min, 0 mls/hr Documented By: Admin: 02/08/23 14:27 Dose: 3 unit/kg/min, 600.919 mls/hr Documented By: MARK Vital Signs Vital signs: Vital Signs - 8 hr 02/08/23 13:12 02/08/23 13:49 02/08/23 14:00 Temperature 97.8 F Pulse Rate 77 64 70 Respiratory Rate 18 16 24 Blood Pressure 127/54 L Pulse Oximetry 98 98 96 Oxygen Delivery Method Room Air MDM - Recheck/Abnormal Lab/Rx <Benito Longoria DO - Last Filed: 02/09/23 06:50> Lab Data 02/09/23 05:23 02/08/23 13:20 Labs: Lab Results 02/08/23 02/08/23 02/08/23 Range/Units 13:20 13:20 13:20 WBC 4.1 L (4.5-11.0) X10^3/uL RBC 2.93 L (4.0-5.2) X10^6/uL Hgb 5.6 L* (12.0-16.0) g/dL Hct 18.7 L* (36-46) % MCV 63.8 L (80-100) fL MCH 19.2 L (26-34) PG MCHC 30.2 (30-36) % RDW 19.2 H (11.6-14.8) % Plt Count 196 (150-400) X10^3/uL Neut % (Auto) 57.8 (50-75) % Lymph % (Auto) 29.7 (25-40) % [place] % (Auto) 8.5 (3-14) % Eos % (Auto) 2.8 (2-4) % Baso % (Auto) 1.2 (0-2) % Neut # (Auto) 2400 (8336-4888) /uL Lymph # (Auto) 1200 (4306-8165) /uL [place] # (Auto) 300 (0-900) /uL Eos # (Auto) 100 (0-450) /uL Baso # (Auto) 0 (0-100) /uL Nucleated RBCs Cancelled Hypersegmented Neuts Cancelled Hypogranular Neuts Cancelled Reactive Lymphocytes Cancelled Smudge Cells Cancelled Other Cell Type Cancelled Toxic Granulation Cancelled Toxic Vacuolation Cancelled Dohle Bodies Cancelled Theresa Rods Cancelled WBC Morphology Comment Cancelled Platelet Estimate Cancelled Clumped Platelets Cancelled Plt Morphology Comment Cancelled RBC Morphology Cancelled Dimorphic RBCs Cancelled Polychromasia Cancelled Hypochromasia Cancelled Poikilocytosis Cancelled Basophilic Stippling Cancelled Anisocytosis Cancelled Microcytosis Cancelled Macrocytosis Cancelled Spherocytes Cancelled Pappenheimer Bodies Cancelled Sickle Cells Cancelled Target Cells Cancelled Tear Drop Cells Cancelled Ovalocytes Cancelled Stomatocytes Cancelled Helmet Cells Cancelled [place] Bodies Cancelled Orient Rings Cancelled [place] Cells Cancelled Acanthocytes (Spur) Cancelled Rouleaux Cancelled Schistocytes Cancelled PT 68.2 H D (10.1-12.7) SECONDS INR 5.8 H* (0.9-1.3) Sodium 139 (137-145) mmol/L Potassium 4.1 (3.4-5.1) mmol/L Chloride 110 H (98-107) mmol/L Carbon Dioxide 24 (22-32) mmol/L BUN 16 (7-17) mg/dL Creatinine 0.78 (0.52-1.04) mg/dL Estimated GFR > 60 (>60) mL/min BUN/Creatinine Ratio 20.5 (6-22) Glucose 102 (80-110) mg/dL Calcium 8.4 (8.4-10.2) mg/dL Blood Type Antibody Screen Crossmatch 02/08/23 Range/Units 13:20 WBC (4.5-11.0) X10^3/uL RBC (4.0-5.2) X10^6/uL Hgb (12.0-16.0) g/dL Hct (36-46) % MCV (80-100) fL MCH (26-34) PG MCHC (30-36) % RDW (11.6-14.8) % Plt Count (150-400) X10^3/uL Neut % (Auto) (50-75) % Lymph % (Auto) (25-40) % [place] % (Auto) (3-14) % Eos % (Auto) (2-4) % Baso % (Auto) (0-2) % Neut # (Auto) (8478-2097) /uL Lymph # (Auto) (2530-2320) /uL [place] # (Auto) (0-900) /uL Eos # (Auto) (0-450) /uL Baso # (Auto) (0-100) /uL Nucleated RBCs Hypersegmented Neuts Hypogranular Neuts Reactive Lymphocytes Smudge Cells Other Cell Type Toxic Granulation Toxic Vacuolation Dohle Bodies Theresa Rods WBC Morphology Comment Platelet Estimate Clumped Platelets Plt Morphology Comment RBC Morphology Dimorphic RBCs Polychromasia Hypochromasia Poikilocytosis Basophilic Stippling Anisocytosis Microcytosis Macrocytosis Spherocytes Pappenheimer Bodies Sickle Cells Target Cells Tear Drop Cells Ovalocytes Stomatocytes Helmet Cells [place] Bodies Orient Rings Claus Cells Acanthocytes (Spur) Rouleaux Schistocytes PT (10.1-12.7) SECONDS INR (0.9-1.3) Sodium (137-145) mmol/L Potassium (3.4-5.1) mmol/L Chloride (98-107) mmol/L Carbon Dioxide (22-32) mmol/L BUN (7-17) mg/dL Creatinine (0.52-1.04) mg/dL Estimated GFR (>60) mL/min BUN/Creatinine Ratio (6-22) Glucose (80-110) mg/dL Calcium (8.4-10.2) mg/dL Blood Type O Positive Antibody Screen Negative Crossmatch See Detail MDM Narrative Medical decision making narrative: 87-year-old female on warfarin due to known history of AFib and TAVR sent to the emergency department secondary to outpatient labs most notably low hemoglobin and elevated INR. She states she does not have much in the way of symptoms but now that she thinks that maybe she has felt a bit ?punky? she denies any known abnormal bleeding, no recent changes in her medications or diet. She is found to be severely anemic with evidence of lower GI bleed with supratherapeutic INR, she is transfused 2 units of packed cells, Coumadin coagulopathy reversed with vitamin K and Kcentra given potential for significant ongoing bleeding. Patient is primary historian. I did consult with General surgery (Dr. Byrd) who is comfortable to be involved as a software developer consultant, does recommend advanced imaging to search for other potential causes of blood loss. Patient admitted to the hospitalist (Dr. Robert) who was happy to accept. Patient understands and agrees with the diagnosis and plan <Lacie Priest, DO - Last Filed: 02/09/23 01:26> Lab Data Labs: Lab Results 02/08/23 02/08/23 02/08/23 Range/Units 13:20 13:20 13:20 WBC 4.1 L (4.5-11.0) X10^3/uL RBC 2.93 L (4.0-5.2) X10^6/uL Hgb 5.6 L* (12.0-16.0) g/dL Hct 18.7 L* (36-46) % MCV 63.8 L (80-100) fL MCH 19.2 L (26-34) PG MCHC 30.2 (30-36) % RDW 19.2 H (11.6-14.8) % Plt Count 196 (150-400) X10^3/uL Neut % (Auto) 57.8 (50-75) % Lymph % (Auto) 29.7 (25-40) % [place] % (Auto) 8.5 (3-14) % Eos % (Auto) 2.8 (2-4) % Baso % (Auto) 1.2 (0-2) % Neut # (Auto) 2400 (8852-9312) /uL Lymph # (Auto) 1200 (0331-9159) /uL [place] # (Auto) 300 (0-900) /uL Eos # (Auto) 100 (0-450) /uL Baso # (Auto) 0 (0-100) /uL Nucleated RBCs Cancelled Hypersegmented Neuts Cancelled Hypogranular Neuts Cancelled Reactive Lymphocytes Cancelled Smudge Cells Cancelled Other Cell Type Cancelled Toxic Granulation Cancelled Toxic Vacuolation Cancelled Dohle Bodies Cancelled Theresa Rods Cancelled WBC Morphology Comment Cancelled Platelet Estimate Cancelled Clumped Platelets Cancelled Plt Morphology Comment Cancelled RBC Morphology Cancelled Dimorphic RBCs Cancelled Polychromasia Cancelled Hypochromasia Cancelled Poikilocytosis Cancelled Basophilic Stippling Cancelled Anisocytosis Cancelled Microcytosis Cancelled Macrocytosis Cancelled Spherocytes Cancelled Pappenheimer Bodies Cancelled Sickle Cells Cancelled Target Cells Cancelled Tear Drop Cells Cancelled Ovalocytes Cancelled Stomatocytes Cancelled Helmet Cells Cancelled [place] Bodies Cancelled Orient Rings Cancelled [place] Cells Cancelled Acanthocytes (Spur) Cancelled Rouleaux Cancelled Schistocytes Cancelled PT 68.2 H D (10.1-12.7) SECONDS INR 5.8 H* (0.9-1.3) Sodium 139 (137-145) mmol/L Potassium 4.1 (3.4-5.1) mmol/L Chloride 110 H (98-107) mmol/L Carbon Dioxide 24 (22-32) mmol/L BUN 16 (7-17) mg/dL Creatinine 0.78 (0.52-1.04) mg/dL Estimated GFR > 60 (>60) mL/min BUN/Creatinine Ratio 20.5 (6-22) Glucose 102 (80-110) mg/dL Calcium 8.4 (8.4-10.2) mg/dL Blood Type Antibody Screen Crossmatch 02/08/23 Range/Units 13:20 WBC (4.5-11.0) X10^3/uL RBC (4.0-5.2) X10^6/uL Hgb (12.0-16.0) g/dL Hct (36-46) % MCV (80-100) fL MCH (26-34) PG MCHC (30-36) % RDW (11.6-14.8) % Plt Count (150-400) X10^3/uL Neut % (Auto) (50-75) % Lymph % (Auto) (25-40) % [place] % (Auto) (3-14) % Eos % (Auto) (2-4) % Baso % (Auto) (0-2) % Neut # (Auto) (6627-5537) /uL Lymph # (Auto) (1882-9663) /uL [place] # (Auto) (0-900) /uL Eos # (Auto) (0-450) /uL Baso # (Auto) (0-100) /uL Nucleated RBCs Hypersegmented Neuts Hypogranular Neuts Reactive Lymphocytes Smudge Cells Other Cell Type Toxic Granulation Toxic Vacuolation Dohle Bodies Theresa Rods WBC Morphology Comment Platelet Estimate Clumped Platelets Plt Morphology Comment RBC Morphology Dimorphic RBCs Polychromasia Hypochromasia Poikilocytosis Basophilic Stippling Anisocytosis Microcytosis Macrocytosis Spherocytes Pappenheimer Bodies Sickle Cells Target Cells Tear Drop Cells Ovalocytes Stomatocytes Helmet Cells [place] Bodies Orient Rings [place] Cells Acanthocytes (Spur) Rouleaux Schistocytes PT (10.1-12.7) SECONDS INR (0.9-1.3) Sodium (137-145) mmol/L Potassium (3.4-5.1) mmol/L Chloride (98-107) mmol/L Carbon Dioxide (22-32) mmol/L BUN (7-17) mg/dL Creatinine (0.52-1.04) mg/dL Estimated GFR (>60) mL/min BUN/Creatinine Ratio (6-22) Glucose (80-110) mg/dL Calcium (8.4-10.2) mg/dL Blood Type O Positive Antibody Screen Negative Crossmatch See Detail Discharge Plan Departure Patient Disposition: Admitted As Inpatient Clinical Impression: GI bleed Admit Date/Time: 02/08/23 14:15 Admit Provider: Arjun Robert <Lacie Priest, - Last Filed: 02/09/23 01:26> Sign Out Provider Sign Out Attestation: Cem 02/08/23: Patient had left the department and was not seen by myself but required a impression to be taken off the tracker board and the physician seeing the patient had left the department where the evening.
--- NOTE | 2023-02-08 14:08 | DI.CT.S_ITS ---
PROCEDURE: CT CHEST ABD PEL W CON INDICATIONS: symptomatic anemia TECHNIQUE: After the administration of intravenous contrast, axial sections acquired from the supraclavicular neck to the pubic symphysis. Coronal and sagittal reformats were performed. For radiation dose reduction, the following was used: automated exposure control, adjustment of mA and/or kV according to patient size. COMPARISON: [facility], CT, CT ABDOMEN WO/W CON, 12/10/2019, 9:33. FINDINGS: Image quality: Excellent. CHEST: Lower Neck: No enlarged lymph nodes. Thyroid: Not well seen. Axillae: No enlarged lymph nodes. Chest Wall: Unremarkable. Lungs and Airways: No consolidation or suspicious nodules. Pleura: No pneumothorax or pleural effusions. Heart: Heart size is normal. No pericardial effusion. A percutaneously placed aortic valve replacement can be seen. Thoracic Vessels: The aorta demonstrates normal size. The pulmonary arteries are enlarged, with the main pulmonary trunk measuring 3.9 cm. Mediastinum and [place]: No enlarged lymph nodes. Esophagus: No wall thickening. No hiatal hernia. ABDOMEN: Liver: Unremarkable. Gallbladder: Unremarkable. Biliary ducts: Unremarkable. Pancreas: Unremarkable. Spleen: Unremarkable. Adrenal Glands: A right adrenal nodule is again seen, measuring 2.4 by 2.2 cm. No left adrenal nodule is seen. Kidneys and Ureters: Unremarkable. Stomach and Bowel: Stomach, small bowel loops, and colon are unremarkable. There is a moderate volume of stool seen within the colon. The rectal vault measures 7.8 cm transversely. Peritoneum: No abnormal intraperitoneal fluid. No free air. Ventral Wall: A mild periumbilical hernia is seen, containing fat. Abdominal Nodes: No retroperitoneal or mesenteric adenopathy by size criteria. Vessels: Aorta and inferior vena cava are normal in size. PELVIS: Pelvic Organs: The uterus appears normal for age. No adnexal masses are seen. Bladder: Unremarkable. Pelvic Nodes: No enlarged lymph nodes. Miscellaneous: No inguinal hernias are seen. Bones: Moderate dextroconvex lumbar scoliosis is seen. There is a remote T12 anterior wedge deformity. Age-appropriate bony degenerative changes are seen. IMPRESSION: A source of bleeding is not identified. No hematomas are seen. Prominent pulmonary arteries. This is most typically an idiopathic finding. However, please correlate with pulmonary hypertension. There is a moderate amount of stool seen within the colon, with prominent stool seen at the level of the rectum. Please correlate with an underlying history of constipation. Additional findings: Prosthetic aortic valve Stable right adrenal nodule Mild fat containing periumbilical hernia Remote T12 anterior wedge deformity Moderate dextroconvex lumbar scoliosis Dictated by: Maldonado Cook M.D. on 02/08/2023 at 14:49 Approved by: Maldonado Cook M.D. on 02/08/2023 at 14:54
[2023-02-08] MEDS: PROTHROMBIN CPLX(PCC)4FACT 3,000 UNIT in ISOOSMOTIC VEHICLE 0 ML 600.919 UNIT IV (14:27)
[2023-02-08] MEDS: PHYTONADIONE (VIT K1) 5 MG in SODIUM CHLORIDE 0.9% 100 ML 201 MG IV (15:25)
--- NOTE | 2023-02-08 17:33 | PM.HP.1 ---
History of Present Illness History of Present Illness Date Patient Seen: 02/08/23 Time Patient Seen: 17:33 Chief complaint: dr ref/hemoglobin low Narrative: Arina Seaman is an 87yo F with PMH of A-fib on warfarin, s/p TAVR, HTN, HLD, PANCHO, hypothyroidism, and iron deficiency anemia who presents with severe anemia following routine outpatient labwork. CBC showed Hgb of 5.9 outpatient and 5.6 in the ED. INR found to be 5.8. Hemoccult positive on rectal exam. General surgery called for lower GI bleed and recommended CT chest abd pelvis which returned as negative for bleed but constipation. Patient states she's had over 6 months of progressive fatigue, lack of energy and loss of appetite. She last had a colonoscopy 7-8 years ago. Was admitted at [facility] in May 2022 for anemia and only had EGD which was negative. Was discharged and put back on warfarin. She has not noticed any bloody stools or melena. Denies CP, abd pain, NV, SOB or diarrhea. PENDING SALE TO [facility] Medical History Abdominal pain Abnormal Pap smear of cervix Acquired spondylolysis of lumbar spine Adrenal nodule Anal fissure Body mass index (BMI) of 30.0 to 39.9 (03/27/16) Carotid artery plaque (~10/29/19) Cellulitis (~2006) Cellulitis of right leg Cellulitis of right lower extremity without foot Chronic anticoagulation Chronic venous insufficiency (10/29/10) Common cold Eczema Facet arthropathy, lumbar Foot pain Heel pain Hemorrhoids History of frequent headaches Hyperlipidemia Hypertension (10/29/10) Hypertension Hypothyroidism Iron deficiency anemia Lichen sclerosus Lumbosacral spondylosis with radiculopathy Measles (~1944) Migraines Mild cognitive impairment (~11/2019) Obstructive sleep apnea hypopnea, mild Peripheral vascular disease Plantar fasciitis 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) Shoulder pain Spondylolisthesis at L4-L5 level Thoracic kyphosis Varicosities of leg Vision abnormalities Vitamin D deficiency Surgical History History of esophagogastroduodenoscopy (EGD) (05/13/17) S/P TAVR (transcatheter aortic valve replacement) Sigmoidoscopy performed Status post appendectomy Status post breast biopsy Status post colonoscopy (05/13/17) Status post sclerotherapy of varicose veins Family History Brother Heart disease Hypertension Father Heart disease Hypertension Heart attack Mother Osteoarthritis Sister Age: 85 Heart attack Heart disease Hypertension Brother Cancer Social History household members: none Smoking Status: Former smoker alcohol intake: current Meds Home Medications and Allergies Home Medications Medication Instructions Recorded Confirmed Type Vitamin B12+ Vitamin C 1 tab PO DAILY 02/19/18 02/08/23 History acetaminophen 500 mg tablet 500 mg PO BID 02/19/18 02/08/23 History loratadine 10 mg tablet (Allergy 10 mg PO DAILY 02/02/20 02/08/23 History Relief (loratadine)) metoprolol succinate 25 mg 25 mg PO DAILY 02/02/20 02/08/23 History tablet,extended release 24 hr handicap placard #1 ea 12/25/20 02/08/23 Rx diphenhydramine HCl 25 mg capsule 25 mg PO BEDTIME PRN Rash 09/12/21 02/08/23 History (Allergy (diphenhydramine)) melatonin 5 mg chewable tablet 5 mg PO BEDTIME PRN supplement 09/12/21 02/08/23 History levothyroxine 125 mcg tablet 125 mcg PO DAILY #90 tabs 08/01/22 02/08/23 Rx simvastatin 20 mg tablet See Rx Instructions .Route 08/23/22 02/08/23 Rx .COMPLEX #90 tabs tramadol 50 mg tablet 50 mg PO TID PRN pain #60 tabs 09/06/22 02/08/23 Rx lisinopril 5 mg tablet 5 mg PO DAILY 11/25/22 02/08/23 History warfarin 1 mg tablet See Rx Instructions PO DAILY #90 01/28/23 02/08/23 Rx tabs warfarin 5 mg tablet See Rx Instructions PO DAILY #90 01/28/23 02/08/23 Rx tabs Allergies Allergy/AdvReac Type Severity Reaction Status Date / Time codeine [CODEINE] Allergy Mild NAUSEA, Verified 02/08/23 13:12 VOMITING morphine [MORPHINE] Allergy Mild NAUSEA, Verified 02/08/23 13:12 VOMITING adhesive tape AdvReac Intermediate skin Verified 02/08/23 13:12 irritation ciprofloxacin [From CIPRO] AdvReac Intermediate Light Verified 02/08/23 13:12 headed Review of Systems Review of Systems Narrative: All other systems reviewed with the patient and are negative unless otherwise stated. Exam Vital Signs (past 8 hours): - 02/08/23 13:12 02/08/23 13:49 02/08/23 14:00 Temperature 97.8 F Pulse Rate 77 64 70 Respiratory Rate 18 16 24 Blood Pressure 127/54 L Pulse Oximetry 98 98 96 Oxygen Delivery Method Room Air 02/08/23 14:30 02/08/23 14:31 02/08/23 14:31 Temperature Pulse Rate 68 66 Respiratory Rate 18 18 Blood Pressure 174/74 H Pulse Oximetry 98 99 Oxygen Delivery Method Room Air Room Air 02/08/23 15:00 02/08/23 15:30 02/08/23 15:43 Temperature Pulse Rate 68 68 Respiratory Rate 19 19 Blood Pressure 203/75 H Pulse Oximetry 99 97 Oxygen Delivery Method Room Air 02/08/23 15:43 02/08/23 15:53 02/08/23 15:57 Temperature 98.1 F 98.1 F Pulse Rate 70 68 Respiratory Rate 22 22 Blood Pressure 203/75 H Pulse Oximetry 97 Oxygen Delivery Method Room Air 02/08/23 16:12 02/08/23 16:25 02/08/23 16:00 Temperature 98.0 F 97.7 F Pulse Rate 68 66 68 Respiratory Rate 14 19 22 Blood Pressure 192/75 H 181/76 H Pulse Oximetry 96 Oxygen Delivery Method 02/08/23 16:01 02/08/23 16:01 02/08/23 16:15 Temperature Pulse Rate 69 Respiratory Rate 21 Blood Pressure 192/75 H 185/73 H Pulse Oximetry 96 Oxygen Delivery Method Room Air 02/08/23 16:15 02/08/23 16:20 02/08/23 16:20 Temperature Pulse Rate 68 65 Respiratory Rate 19 20 Blood Pressure 181/76 H Pulse Oximetry 96 93 Oxygen Delivery Method 02/08/23 16:26 02/08/23 16:26 02/08/23 16:30 Temperature Pulse Rate 66 Respiratory Rate 21 Blood Pressure 178/73 H 177/73 H Pulse Oximetry 97 Oxygen Delivery Method 02/08/23 16:30 02/08/23 16:35 02/08/23 16:35 Temperature Pulse Rate 64 63 Respiratory Rate 19 18 Blood Pressure 177/73 H Pulse Oximetry 96 93 Oxygen Delivery Method Room Air 02/08/23 16:40 02/08/23 16:40 02/08/23 16:45 Temperature Pulse Rate 69 Respiratory Rate 14 Blood Pressure 179/78 H 182/75 H Pulse Oximetry 93 Oxygen Delivery Method 02/08/23 16:45 Temperature Pulse Rate 66 Respiratory Rate 19 Blood Pressure Pulse Oximetry 95 Oxygen Delivery Method Room Air Oxygen Delivery Method Room Air Narrative Exam Narrative: GEN: no acute distress HEENT: moist mucous membranes, PERRL NECK: trachea midline, no JVD CV: regular rate and rhythm, no murmurs PULM: clear bilaterally ABD: soft, nontender, nondistended, no organomegaly EXT: warm and well perfused with no edema NEURO: awake, alert, oriented, no focal deficits Objective Labs 02/08/23 13:20 02/08/23 13:20 Labs: Laboratory Results - last 24 hr 02/08/23 02/08/23 02/08/23 13:20 13:20 13:20 WBC 4.1 L RBC 2.93 L Hgb 5.6 L* Hct 18.7 L* MCV 63.8 L MCH 19.2 L MCHC 30.2 RDW 19.2 H Plt Count 196 Neut % (Auto) 57.8 Lymph % (Auto) 29.7 [place] % (Auto) 8.5 Eos % (Auto) 2.8 Baso % (Auto) 1.2 Neut # (Auto) 2400 Lymph # (Auto) 1200 [place] # (Auto) 300 Eos # (Auto) 100 Baso # (Auto) 0 Nucleated RBCs Cancelled Hypersegmented Neuts Cancelled Hypogranular Neuts Cancelled Reactive Lymphocytes Cancelled Smudge Cells Cancelled Other Cell Type Cancelled Toxic Granulation Cancelled Toxic Vacuolation Cancelled Dohle Bodies Cancelled Theresa Rods Cancelled WBC Morphology Comment Cancelled Platelet Estimate Cancelled Clumped Platelets Cancelled Plt Morphology Comment Cancelled RBC Morphology Cancelled Dimorphic RBCs Cancelled Polychromasia Cancelled Hypochromasia Cancelled Poikilocytosis Cancelled Basophilic Stippling Cancelled Anisocytosis Cancelled Microcytosis Cancelled Macrocytosis Cancelled Spherocytes Cancelled Pappenheimer Bodies Cancelled Sickle Cells Cancelled Target Cells Cancelled Tear Drop Cells Cancelled Ovalocytes Cancelled Stomatocytes Cancelled Helmet Cells Cancelled [place] Bodies Cancelled [place] Rings Cancelled [place] Cells Cancelled Acanthocytes (Spur) Cancelled Rouleaux Cancelled Schistocytes Cancelled PT 68.2 H D INR 5.8 H* Sodium 139 Potassium 4.1 Chloride 110 H Carbon Dioxide 24 BUN 16 Creatinine 0.78 Estimated GFR > 60 BUN/Creatinine Ratio 20.5 Glucose 102 Calcium 8.4 Blood Type Antibody Screen Crossmatch 02/08/23 13:20 WBC RBC Hgb Hct MCV MCH MCHC RDW Plt Count Neut % (Auto) Lymph % (Auto) [place] % (Auto) Eos % (Auto) Baso % (Auto) Neut # (Auto) Lymph # (Auto) [place] # (Auto) Eos # (Auto) Baso # (Auto) Nucleated RBCs Hypersegmented Neuts Hypogranular Neuts Reactive Lymphocytes Smudge Cells Other Cell Type Toxic Granulation Toxic Vacuolation Dohle Bodies Theresa Rods WBC Morphology Comment Platelet Estimate Clumped Platelets Plt Morphology Comment RBC Morphology Dimorphic RBCs Polychromasia Hypochromasia Poikilocytosis Basophilic Stippling Anisocytosis Microcytosis Macrocytosis Spherocytes Pappenheimer Bodies Sickle Cells Target Cells Tear Drop Cells Ovalocytes Stomatocytes Helmet Cells [place] Bodies [place] Rings Claus Cells Acanthocytes (Spur) Rouleaux Schistocytes PT INR Sodium Potassium Chloride Carbon Dioxide BUN Creatinine Estimated GFR BUN/Creatinine Ratio Glucose Calcium Blood Type O Positive Antibody Screen Negative Crossmatch See Detail Assessment & Plan Assessment & Plan narrative: # acute blood loss anemia secondary to lower GI bleed in the setting of supratherapeutic INR -hemoglobin 5.6, s/p 2 units PRBC, Kcentra and vitamin K in ED -recheck hemoglobin and INR following blood transfusion -Dr. Byrd general surgery consulted -will trend hemoglobin for now and if continues to drop will plan for colonoscopy, keep hemoglobin greater than 7 -PPI IV BID -daily INR and CBC -clear liquid diet # paroxysmal A-fib -holding warfarin due to LGIB -continue metoprolol # HTN -hold home BP meds in setting of LGIB # hypothyroidism -continue home synthroid Code status is []. DVT prophylaxis with SCDs. Proxy is sister Julia. I have reviewed home meds and used all available resources to reconcile the home meds. Case discussed with ED physician/APC and patient will be admitted to the hospitalist service for further workup and management. Case discussed with Dr. Byrd general surgery. This patient will be admitted as inpatient and will require greater than 2 midnights of hospital time to treat severe anemia due to lower GI bleed.
[2023-02-08 19:31] LABS: Add Manual Diff / Slide Review NO; Basophils Absolute Auto 0 /uL (0-100); Eosinophils Absolute Auto 200 /uL (0-450); Lymphocytes Absolute Auto 1500 /uL (1100-4500); Lymphocytes Percent Auto 36.2 % (25-40); Mean Corpuscular HGB Conc 29.9 % (30-36); Mean Corpuscular Hemoglobin 19.4 PG (26-34); Monocytes Absolute Auto 400 /uL (0-900); Monocytes Percent Auto 8.8 % (3-14); Neutrophils Absolute Auto 2000 /uL (1500-7000); Platelet Count 180 X10^3/uL (150-400); Red Blood Cell Count 3.15 X10^6/uL (4.0-5.2); Red Cell Distribution Width 19.6 % (11.6-14.8)
[2023-02-08 19:50] LABS: INR 1.3 (0.9-1.3); Prothrombin Time 15.3 SECONDS (10.1-12.7)
[2023-02-08 19:56] LABS: Hematocrit 20.5 % (36-46); Hemoglobin 6.1 g/dL (12.0-16.0)
--- NOTE | 2023-02-08 20:05 | PC.NURSE ---
Addendum entered by Tish Avitia R.N. 02/09/23 06:33: Pt A&Ox4, BP 160-180s during shift, MD aware. Blood infusion tolerated well. Some c/o left back pain (pre-existing, per pt), managed with Tylenol and hot packs. Addendum entered by Tish Avitia R.N. 02/08/23 22:34: Pt tolerating well, administration rate increased Addendum entered by Tish Avitia R.N. 02/08/23 22:22: 1 unit of blood ordered. Pre-blood BP 180/60, Dr. Forde notified (see MAR), blood administration confirmed to go ahead. Pt calm, lungs CTA. Original Note: Lab reported critical H/H of 6.1/20.5. Dr. Forde notified.
[2023-02-08 20:25] LABS: Hypochromasia 2+; Schistocytes 1+; Target Cells 1+
[2023-02-08 20:26] LABS: Anisocytosis 1+; Microcytosis 2+
[2023-02-08] MEDS: PANTOPRAZOLE 40 MG VIAL IV (20:48)
[2023-02-08] MEDS: ACETAMINOPHEN 325 MG TABLET 650 MG PO (20:48)
[2023-02-09] VITALS (9 sets, daily range): BP systolic 167–188; BP diastolic 54–72; PULSE 66–77; RESP 16–18; TEMP 35.8–37.1; O2SAT 97–98
[2023-02-09] MEDS: HYDRALAZINE 25 MG TABLET PO (00:33)
[2023-02-09] MEDS: MELATONIN 3 MG TABLET 6 MG PO (00:33)
[2023-02-09 06:05] LABS: Hemoglobin 7.4 g/dL (12.0-16.0); INR 1.3 (0.9-1.3); Mean Corpuscular HGB Conc 31.9 % (30-36); Mean Corpuscular Hemoglobin 21.2 PG (26-34); Mean Corpuscular Volume 66.3 fL (80-100); Platelet Count 201 X10^3/uL (150-400); Prothrombin Time 15.2 SECONDS (10.1-12.7); Red Blood Cell Count 3.51 X10^6/uL (4.0-5.2); Red Cell Distribution Width 21.5 % (11.6-14.8); White Blood Cell Count 4.3 X10^3/uL (4.5-11.0)
[2023-02-09 06:08] LABS: Add Manual Diff / Slide Review YES; Hematocrit 23.3 % (36-46)
[2023-02-09] MEDS: LEVOTHYROXINE 125 MCG TABLET PO (06:09)
[2023-02-09 06:50] LABS: Neutrophils Absolute Manual 2666 /uL (3000-5900); Total Cells Counted 100
[2023-02-09] MEDS: PANTOPRAZOLE 40 MG VIAL IV ×2 (09:12→21:11)
[2023-02-09] MEDS: ACETAMINOPHEN 325 MG TABLET 650 MG PO ×2 (09:12→21:28)
--- NOTE | 2023-02-09 10:34 | CM.DANOTE ---
Initial Discharge Assessment Note: Case reviewed, met with patient. Introduced self and role. Payer: Medicare and [employer] PCP: Mike Myers 87 year old female admitted yesterday with progressive fatigue, severe anemia, Hgb of 5.9, 5.6 and high INR (on Warfarin). She has received 2 units. She had similar symptoms last year while here. Attributing anemia to GI bleed. She is independent and lives in her own apartment. She has 2 sisters in [place] as well, one of whom is her POA. In February she is planning on moving to [facility] in [facility]. PLAN: When medically cleared, discharge home to care of family who will provide transport. [place] Discharge Planning/Care Management CM Discharge Assessment Start: 02/09/23 10:31 Freq: Status: Active Protocol: Document 02/09/23 10:32 (Rec: 02/09/23 10:34 [id number]) Discharge Planning Assessment Assigned Transformation Manager Heidi Lang RN/DCP Advance Directives? No History Provided By Patient Prior Living Arrangements Apartment/Condo Household Members none Type of transporation used prior to Drives own vehicle admit Independent with ADL's Yes Is patient alert and oriented? Yes Needs Assistance With Home Chores / Shopping Caregiver for Another No Barriers to Discharge No Discharge Plan Home Transportation Arrangement Sister POA Referrals Initiated None needed Additional Comment In February patient will be moving into an [facility] in [facility] Review Status In Process Next Review Type Continued Stay Review
--- NOTE | 2023-02-09 11:22 | PC.NURSE ---
Patient up to bathroom x2 with walker. Given tylenol for pain and helpful. just saw patient and states that he is not going to do anything with her at this time. He is going to talk to . She is comfortable.
--- NOTE | 2023-02-09 11:33 | PM.CN ---
History of Present Illness Consult details Date Patient Seen: 02/09/23 Time Patient Seen: 11:33 Chief complaint: dr ref/hemoglobin low Narrative: Arina is an 87-year-old woman who presented to the ER yesterday with severe anemia. She takes Coumadin for atrial fibrillation. She was found to have a hemoglobin of 5.6 and an INR of 5.8. She denies melena or hematochezia. She was admitted in May and had an EGD by Dr. Woodward with findings of ?diffuse gastritis?. She was eventually discharged with pantoprazole. She is not sure if she is still taking that at home. She did also have an EGD and colonoscopy by Dr. Braswell in 2017. Dr. Braswell noted ?atrophic gastropathy? in the stomach One small polyp was removed from the colon. Meds Home Medications and Allergies Home Medications Medication Instructions Recorded Confirmed Type Vitamin B12+ Vitamin C 1 tab PO DAILY 02/19/18 02/08/23 History acetaminophen 500 mg tablet 500 mg PO BID 02/19/18 02/08/23 History loratadine 10 mg tablet (Allergy 10 mg PO DAILY 02/02/20 02/08/23 History Relief (loratadine)) metoprolol succinate 25 mg 25 mg PO DAILY 02/02/20 02/08/23 History tablet,extended release 24 hr handicap placard #1 ea 12/25/20 02/08/23 Rx diphenhydramine HCl 25 mg capsule 25 mg PO BEDTIME PRN Rash 09/12/21 02/08/23 History (Allergy (diphenhydramine)) melatonin 5 mg chewable tablet 5 mg PO BEDTIME PRN supplement 09/12/21 02/08/23 History levothyroxine 125 mcg tablet 125 mcg PO DAILY #90 tabs 08/01/22 02/08/23 Rx simvastatin 20 mg tablet See Rx Instructions .Route 08/23/22 02/08/23 Rx .COMPLEX #90 tabs tramadol 50 mg tablet 50 mg PO TID PRN pain #60 tabs 09/06/22 02/08/23 Rx lisinopril 5 mg tablet 5 mg PO DAILY 11/25/22 02/08/23 History warfarin 1 mg tablet See Rx Instructions PO DAILY #90 01/28/23 02/08/23 Rx tabs warfarin 5 mg tablet See Rx Instructions PO DAILY #90 01/28/23 02/08/23 Rx tabs Allergies Allergy/AdvReac Type Severity Reaction Status Date / Time codeine [CODEINE] Allergy Mild NAUSEA, Verified 02/08/23 13:12 VOMITING morphine [MORPHINE] Allergy Mild NAUSEA, Verified 02/08/23 13:12 VOMITING adhesive tape AdvReac Intermediate skin Verified 02/08/23 13:12 irritation ciprofloxacin [From CIPRO] AdvReac Intermediate Light Verified 02/08/23 13:12 headed Exam Vital Signs (past 8 hours): - 02/09/23 04:00 02/09/23 08:00 Temperature 97.1 F L 96.5 F L Pulse Rate 75 75 Respiratory Rate 18 18 Blood Pressure 188/55 H 185/62 H Pulse Oximetry 97 97 Oxygen Flow Rate 0 0 Oxygen Delivery Method Room Air Oxygen Flow Rate 0 Const General: comfortable Objective Labs 02/09/23 05:23 02/08/23 13:20 Labs: Laboratory Results - last 24 hr 02/08/23 02/08/23 02/08/23 13:20 13:20 13:20 WBC 4.1 L RBC 2.93 L Hgb 5.6 L* Hct 18.7 L* MCV 63.8 L MCH 19.2 L MCHC 30.2 RDW 19.2 H Plt Count 196 Neut % (Auto) 57.8 Lymph % (Auto) 29.7 [place] % (Auto) 8.5 Eos % (Auto) 2.8 Baso % (Auto) 1.2 Neut # (Auto) 2400 Lymph # (Auto) 1200 [place] # (Auto) 300 Eos # (Auto) 100 Baso # (Auto) 0 Total Counted Seg Neutrophils % Band Neutrophils % Lymphocytes % (Manual) Monocytes % (Manual) Eosinophils % (Manual) Basophils % (Manual) Neutrophils # (Manual) Nucleated RBCs Cancelled Hypersegmented Neuts Cancelled Hypogranular Neuts Cancelled Reactive Lymphocytes Cancelled Smudge Cells Cancelled Other Cell Type Cancelled Toxic Granulation Cancelled Toxic Vacuolation Cancelled Dohle Bodies Cancelled Theresa Rods Cancelled WBC Morphology Comment Cancelled Platelet Estimate Cancelled Clumped Platelets Cancelled Plt Morphology Comment Cancelled RBC Morphology Cancelled Dimorphic RBCs Cancelled Polychromasia Cancelled Hypochromasia Cancelled Poikilocytosis Cancelled Basophilic Stippling Cancelled Anisocytosis Cancelled Microcytosis Cancelled Macrocytosis Cancelled Spherocytes Cancelled Pappenheimer Bodies Cancelled Sickle Cells Cancelled Target Cells Cancelled Tear Drop Cells Cancelled Ovalocytes Cancelled Stomatocytes Cancelled Helmet Cells Cancelled [place] Bodies Cancelled [place] Rings Cancelled [place] Cells Cancelled Acanthocytes (Spur) Cancelled Rouleaux Cancelled Schistocytes Cancelled PT 68.2 H D INR 5.8 H* Sodium 139 Potassium 4.1 Chloride 110 H Carbon Dioxide 24 BUN 16 Creatinine 0.78 Estimated GFR > 60 BUN/Creatinine Ratio 20.5 Glucose 102 Calcium 8.4 Blood Type Antibody Screen Crossmatch 02/08/23 02/08/23 02/08/23 13:20 19:10 19:23 WBC 4.0 L RBC 3.15 L Hgb 6.1 L* Hct 20.5 L* MCV 65.0 L MCH 19.4 L MCHC 29.9 L RDW 19.6 H Plt Count 180 Neut % (Auto) 50.0 Lymph % (Auto) 36.2 [place] % (Auto) 8.8 Eos % (Auto) 4.0 Baso % (Auto) 1.0 Neut # (Auto) 2000 Lymph # (Auto) 1500 [place] # (Auto) 400 Eos # (Auto) 200 Baso # (Auto) 0 Total Counted Seg Neutrophils % Band Neutrophils % Lymphocytes % (Manual) Monocytes % (Manual) Eosinophils % (Manual) Basophils % (Manual) Neutrophils # (Manual) Nucleated RBCs Hypersegmented Neuts Hypogranular Neuts Reactive Lymphocytes Smudge Cells Other Cell Type Toxic Granulation Toxic Vacuolation Dohle Bodies Theresa Rods WBC Morphology Comment Platelet Estimate Clumped Platelets Plt Morphology Comment RBC Morphology See below Dimorphic RBCs Polychromasia Hypochromasia 2+ H Poikilocytosis Basophilic Stippling Anisocytosis 1+ H Microcytosis 2+ H Macrocytosis Spherocytes Pappenheimer Bodies Sickle Cells Target Cells 1+ H Tear Drop Cells Ovalocytes Stomatocytes Helmet Cells [place] Bodies [place] Rings [place] Cells Acanthocytes (Spur) Rouleaux Schistocytes 1+ H PT 15.3 H D INR 1.3 Sodium Potassium Chloride Carbon Dioxide BUN Creatinine Estimated GFR BUN/Creatinine Ratio Glucose Calcium Blood Type O Positive Antibody Screen Negative Crossmatch See Detail 02/09/23 02/09/23 05:23 05:23 WBC 4.3 L RBC 3.51 L Hgb 7.4 L Hct 23.3 L MCV 66.3 L MCH 21.2 L MCHC 31.9 RDW 21.5 H Plt Count 201 Neut % (Auto) Not Reportable Lymph % (Auto) Not Reportable [place] % (Auto) Not Reportable Eos % (Auto) Not Reportable Baso % (Auto) Not Reportable Neut # (Auto) Lymph # (Auto) Not Reportable [place] # (Auto) Not Reportable Eos # (Auto) Baso # (Auto) Not Reportable Total Counted 100 Seg Neutrophils % 60.0 Band Neutrophils % 2.0 L Lymphocytes % (Manual) 30.0 Monocytes % (Manual) 2.0 Eosinophils % (Manual) 4.0 Basophils % (Manual) 2.0 H Neutrophils # (Manual) 2666 L Nucleated RBCs Hypersegmented Neuts Hypogranular Neuts Reactive Lymphocytes Smudge Cells Other Cell Type Toxic Granulation Toxic Vacuolation Dohle Bodies Theresa Rods WBC Morphology Comment Platelet Estimate Clumped Platelets Plt Morphology Comment RBC Morphology See below Dimorphic RBCs * Polychromasia Hypochromasia Poikilocytosis Basophilic Stippling Anisocytosis Microcytosis Macrocytosis Spherocytes Pappenheimer Bodies Sickle Cells Target Cells Tear Drop Cells Ovalocytes Stomatocytes Helmet Cells [place] Bodies [place] Rings [place] Cells Acanthocytes (Spur) Rouleaux Schistocytes PT 15.2 H INR 1.3 Sodium Potassium Chloride Carbon Dioxide BUN Creatinine Estimated GFR BUN/Creatinine Ratio Glucose Calcium Blood Type Antibody Screen Crossmatch [facility] Medical History Abdominal pain Abnormal Pap smear of cervix Acquired spondylolysis of lumbar spine Adrenal nodule Anal fissure Body mass index (BMI) of 30.0 to 39.9 (03/27/16) Carotid artery plaque (~10/29/19) Cellulitis (~2006) Cellulitis of right leg Cellulitis of right lower extremity without foot Chronic anticoagulation Chronic venous insufficiency (10/29/10) Common cold Eczema Facet arthropathy, lumbar Foot pain Heel pain Hemorrhoids History of frequent headaches Hyperlipidemia Hypertension (10/29/10) Hypertension Hypothyroidism Iron deficiency anemia Lichen sclerosus Lumbosacral spondylosis with radiculopathy Measles (~1945) Migraines Mild cognitive impairment (~11/2019) Obstructive sleep apnea hypopnea, mild Peripheral vascular disease Plantar fasciitis 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) Shoulder pain Spondylolisthesis at L4-L5 level Thoracic kyphosis Varicosities of leg Vision abnormalities Vitamin D deficiency Surgical History History of esophagogastroduodenoscopy (EGD) (05/13/17) S/P TAVR (transcatheter aortic valve replacement) Sigmoidoscopy performed Status post appendectomy Status post breast biopsy Status post colonoscopy (05/13/17) Status post sclerotherapy of varicose veins Family History Brother Heart disease Hypertension Father Heart disease Hypertension Heart attack Mother Osteoarthritis Sister Age: 85 Heart attack Heart disease Hypertension Brother Cancer Social History household members: none Tobacco & Substance Use Smoking Status: Former smoker alcohol intake: current Assessment & Plan Assessment and plan (1) Iron deficiency anemia: Qualifiers: Iron deficiency anemia type: inadequate dietary iron intake Qualified Code(s): D50.8 - Other iron deficiency anemias Status: Acute Plan In light of her recent endoscopic evaluations and her similar presentation in May no endoscopy is required at this time. She most likely has continuation of her diffuse gastritis and her anemia should correct with correction of her INR and PPI therapy. Consider stopping her anticoagulation altogether given her age and multiple episodes of anemia. Please re-consult surgery if further services are required.
[2023-02-09] MEDS: lisinopriL 5 MG TABLET PO (14:40)
[2023-02-09] MEDS: METOPROLOL ER 25 MG TABLET PO (14:40)
[2023-02-09] MEDS: LORATADINE 10 MG TABLET PO (14:40)
[2023-02-09] MEDS: TRAMADOL 50 MG TABLET PO (14:40)
--- NOTE | 2023-02-09 17:16 | PM.PN.1 ---
Subjective Subjective Interval history: Patient didn't sleep well at all last night. Hgb 7.4 this AM. INR 1.3. Exam Vital Signs (past 8 hours): - 02/09/23 13:37 Temperature 97.5 F L Pulse Rate 77 Respiratory Rate 17 Blood Pressure 172/72 H Pulse Oximetry 97 Oxygen Flow Rate 0 Oxygen Delivery Method Room Air Oxygen Flow Rate 0 Narrative Exam Narrative: GEN: no acute distress HEENT: moist mucous membranes, PERRL NECK: trachea midline, no JVD CV: regular rate and rhythm, no murmurs PULM: clear bilaterally ABD: soft, nontender, nondistended, no organomegaly EXT: warm and well perfused with no edema NEURO: awake, alert, oriented, no focal deficits Objective Labs 02/09/23 05:23 02/08/23 13:20 Labs: Laboratory Results - last 24 hr 02/08/23 02/08/23 02/08/23 13:20 19:10 19:23 WBC 4.0 L RBC 3.15 L Hgb 6.1 L* Hct 20.5 L* MCV 65.0 L MCH 19.4 L MCHC 29.9 L RDW 19.6 H Plt Count 180 Neut % (Auto) 50.0 Lymph % (Auto) 36.2 [place] % (Auto) 8.8 Eos % (Auto) 4.0 Baso % (Auto) 1.0 Neut # (Auto) 2000 Lymph # (Auto) 1500 [place] # (Auto) 400 Eos # (Auto) 200 Baso # (Auto) 0 Total Counted Seg Neutrophils % Band Neutrophils % Lymphocytes % (Manual) Monocytes % (Manual) Eosinophils % (Manual) Basophils % (Manual) Neutrophils # (Manual) RBC Morphology See below Dimorphic RBCs Hypochromasia 2+ H Anisocytosis 1+ H Microcytosis 2+ H Target Cells 1+ H Schistocytes 1+ H PT 15.3 H D INR 1.3 Blood Type O Positive Antibody Screen Negative Crossmatch See Detail 02/09/23 02/09/23 05:23 05:23 WBC 4.3 L RBC 3.51 L Hgb 7.4 L Hct 23.3 L MCV 66.3 L MCH 21.2 L MCHC 31.9 RDW 21.5 H Plt Count 201 Neut % (Auto) Not Reportable Lymph % (Auto) Not Reportable [place] % (Auto) Not Reportable Eos % (Auto) Not Reportable Baso % (Auto) Not Reportable Neut # (Auto) Lymph # (Auto) Not Reportable [place] # (Auto) Not Reportable Eos # (Auto) Baso # (Auto) Not Reportable Total Counted 100 Seg Neutrophils % 60.0 Band Neutrophils % 2.0 L Lymphocytes % (Manual) 30.0 Monocytes % (Manual) 2.0 Eosinophils % (Manual) 4.0 Basophils % (Manual) 2.0 H Neutrophils # (Manual) 2666 L RBC Morphology See below Dimorphic RBCs * Hypochromasia Anisocytosis Microcytosis Target Cells Schistocytes PT 15.2 H INR 1.3 Blood Type Antibody Screen Crossmatch [facility] Medical History Abdominal pain Abnormal Pap smear of cervix Acquired spondylolysis of lumbar spine Adrenal nodule Anal fissure Body mass index (BMI) of 30.0 to 39.9 (03/27/16) Carotid artery plaque (~10/29/19) Cellulitis (~2006) Cellulitis of right leg Cellulitis of right lower extremity without foot Chronic anticoagulation Chronic venous insufficiency (10/29/10) Common cold Eczema Facet arthropathy, lumbar Foot pain Heel pain Hemorrhoids History of frequent headaches Hyperlipidemia Hypertension (10/29/10) Hypertension Hypothyroidism Iron deficiency anemia Lichen sclerosus Lumbosacral spondylosis with radiculopathy Measles (~1944) Migraines Mild cognitive impairment (~11/2019) Obstructive sleep apnea hypopnea, mild Peripheral vascular disease Plantar fasciitis 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) Shoulder pain Spondylolisthesis at L4-L5 level Thoracic kyphosis Varicosities of leg Vision abnormalities Vitamin D deficiency Surgical History History of esophagogastroduodenoscopy (EGD) (05/13/17) S/P TAVR (transcatheter aortic valve replacement) Sigmoidoscopy performed Status post appendectomy Status post breast biopsy Status post colonoscopy (05/13/17) Status post sclerotherapy of varicose veins Family History Brother Heart disease Hypertension Father Heart disease Hypertension Heart attack Mother Osteoarthritis Sister Age: 85 Heart attack Heart disease Hypertension Brother Cancer Social History household members: none Smoking Status: Former smoker alcohol intake: current Assessment & Plan Assessment & Plan narrative: # acute blood loss anemia secondary to lower GI bleed in the setting of supratherapeutic INR -hemoglobin 5.6, s/p 2 units PRBC, Kcentra and vitamin K in ED -recheck hemoglobin and INR following blood transfusion -Dr. Byrd general surgery consulted, rec holding warfarin and trending Hgb. No colonoscopy needed at this time. -PPI IV BID, will dc on po protonix daily due to h/o gastritis on EGD -daily INR and CBC -Hgb now 7.4 and INR 1.3 # paroxysmal A-fib -will stop warfarin -continue metoprolol # HTN -restart home BP meds # hypothyroidism -continue home synthroid Code status is Full code. DVT prophylaxis with SCDs. Proxy is sister Julia. I have reviewed home meds and used all available resources to reconcile the home meds. Case discussed with ED physician/APC and patient will be admitted to the hospitalist service for further workup and management. Case discussed with Dr. Byrd general surgery. This patient will be admitted as inpatient and will require greater than 2 midnights of hospital time to treat severe anemia due to lower GI bleed. Quality VTE Deep Vein Thrombosis/Pulmonary Embolism Present on Admission: No
[2023-02-10 04:24] VITALS: BP 179/61; PULSE 69; RESP 16; TEMP 36.9; O2SAT 98
[2023-02-10] MEDS: LEVOTHYROXINE 125 MCG TABLET PO (06:03)
[2023-02-10 06:26] LABS: Hemoglobin 8.1 g/dL (12.0-16.0); Mean Corpuscular HGB Conc 31.1 % (30-36); Mean Corpuscular Hemoglobin 20.8 PG (26-34); Mean Corpuscular Volume 66.8 fL (80-100); Platelet Count 218 X10^3/uL (150-400); Red Blood Cell Count 3.89 X10^6/uL (4.0-5.2); Red Cell Distribution Width 21.9 % (11.6-14.8); White Blood Cell Count 4.8 X10^3/uL (4.5-11.0)
[2023-02-10 06:27] LABS: INR 1.2 (0.9-1.3); Prothrombin Time 14.1 SECONDS (10.1-12.7)
[2023-02-10 06:39] LABS: Add Manual Diff / Slide Review YES
[2023-02-10 08:00] VITALS: BP 196/78; PULSE 68; RESP 18; TEMP 36.4; O2SAT 96
[2023-02-10 08:00] LABS: Neutrophils Absolute Manual 2640 /uL (3000-5900); Total Cells Counted 100
[2023-02-10 08:03] LABS: Anisocytosis 2+; Hypochromasia 1+; Microcytosis 1+; Schistocytes 1+
--- NOTE | 2023-02-10 08:14 | PC.NURSE ---
Patient will discharge home today. She states that she got some sleep last night and is feeling better. Up to bathroom with one person assist and walker when needed. Patients legs are less edematous this morning. She is tolerating breakfast well and will be getting her medications soon.
[2023-02-10] MEDS: LORATADINE 10 MG TABLET PO (08:51)
[2023-02-10] MEDS: METOPROLOL ER 25 MG TABLET PO (08:51)
[2023-02-10] MEDS: lisinopriL 5 MG TABLET PO (08:52)
[2023-02-10] MEDS: PANTOPRAZOLE 40 MG VIAL IV (08:52)
--- NOTE | 2023-02-10 11:08 | PM.DS.1 ---
History of Present Illness History of Present Illness Date Patient Seen: 02/08/23 Time Patient Seen: 17:33 Chief complaint: dr ref/hemoglobin low Narrative: Arina Seaman is an 87yo F with PMH of A-fib on warfarin, s/p TAVR, HTN, HLD, PANCHO, hypothyroidism, and iron deficiency anemia who presents with severe anemia following routine outpatient labwork. CBC showed Hgb of 5.9 outpatient and 5.6 in the ED. INR found to be 5.8. Hemoccult positive on rectal exam. General surgery called for lower GI bleed and recommended CT chest abd pelvis which returned as negative for bleed but constipation. Patient states she's had over 6 months of progressive fatigue, lack of energy and loss of appetite. She last had a colonoscopy 7-8 years ago. Was admitted at [place] [facility] in May 2022 for anemia and only had EGD which was negative. Was discharged and put back on warfarin. She has not noticed any bloody stools or melena. Denies CP, abd pain, NV, SOB or diarrhea. Discharge Providers Provider Date of admission: 02/08/23 14:15 Discharge Date: 02/10/23 Primary care physician: Mike Myers DO Consults: 02/08/23 14:34 Consult to General Surgery Routine Comment: Consulting Provider: Valentin Byrd Reason for consultation: LGIB Has provider been notified: Yes Discharge provider: Arjun Robert DO Summary Hospital Course Discharge Diagnosis: # acute blood loss anemia secondary to lower GI bleed in the setting of supratherapeutic INR -hemoglobin 5.6, s/p 2 units PRBC, Kcentra and vitamin K in ED -recheck hemoglobin and INR following blood transfusion -Dr. Byrd general surgery consulted, rec holding warfarin and trending Hgb. No colonoscopy needed at this time. -PPI IV BID, will dc on po protonix daily due to h/o gastritis on EGD -daily INR and CBC -Hgb now 7.4 and INR 1. -Hgb remained stable x2 days at 8.1 -discontinued warfarin on discharge # paroxysmal A-fib -will stop warfarin -continue metoprolol # HTN -restart home BP meds # hypothyroidism -continue home synthroid Hospital Course: Admitted for anemia down to 5.6 found on routine outpatient lab work. INR found to be 6.6. Suspected GI source in the setting of frequent elevated INR. Given Kcentra and vit K and INR normalized. Given 2 units PRBC and Hgb remained stable so no scopes were needed. Stopped warfarin and patient ok with this. She will f/u with cardiology about other options, but likely will just remain off blood thinners for life. Exam Vital Signs (past 8 hours): - 02/10/23 04:24 02/10/23 08:00 Temperature 98.5 F 97.5 F L Pulse Rate 69 68 Respiratory Rate 16 18 Blood Pressure 179/61 H 196/78 H Pulse Oximetry 98 96 Oxygen Flow Rate 0 0 Oxygen Delivery Method Room Air Oxygen Flow Rate 0 Narrative Exam Narrative: GEN: no acute distress HEENT: moist mucous membranes, PERRL NECK: trachea midline, no JVD CV: regular rate and rhythm, no murmurs PULM: clear bilaterally ABD: soft, nontender, nondistended, no organomegaly EXT: warm and well perfused with no edema NEURO: awake, alert, oriented, no focal deficits Objective Labs 02/10/23 05:54 02/08/23 13:20 Labs: Laboratory Results - last 24 hr 02/10/23 02/10/23 05:54 05:54 WBC 4.8 RBC 3.89 L Hgb 8.1 L Hct 26.0 L MCV 66.8 L MCH 20.8 L MCHC 31.1 RDW 21.9 H Plt Count 218 Neut % (Auto) Not Reportable Lymph % (Auto) Not Reportable [place] % (Auto) Not Reportable Eos % (Auto) Not Reportable Baso % (Auto) Not Reportable Lymph # (Auto) Not Reportable [place] # (Auto) Not Reportable Baso # (Auto) Not Reportable Total Counted 100 Seg Neutrophils % 55.0 Lymphocytes % (Manual) 41.0 Eosinophils % (Manual) 3.0 Basophils % (Manual) 1.0 Neutrophils # (Manual) 2640 L RBC Morphology See below Hypochromasia 1+ H Anisocytosis 2+ H Microcytosis 1+ H Schistocytes 1+ H PT 14.1 H INR 1.2 PFSH Medical History Abdominal pain Abnormal Pap smear of cervix Acquired spondylolysis of lumbar spine Adrenal nodule Anal fissure Body mass index (BMI) of 30.0 to 39.9 (03/27/16) Carotid artery plaque (~10/29/19) Cellulitis (~2006) Cellulitis of right leg Cellulitis of right lower extremity without foot Chronic anticoagulation Chronic venous insufficiency (10/29/10) Common cold Eczema Facet arthropathy, lumbar Foot pain Heel pain Hemorrhoids History of frequent headaches Hyperlipidemia Hypertension (10/29/10) Hypertension Hypothyroidism Iron deficiency anemia Lichen sclerosus Lumbosacral spondylosis with radiculopathy Measles (~194) Migraines Mild cognitive impairment (~11/2019) Obstructive sleep apnea hypopnea, mild Peripheral vascular disease Plantar fasciitis 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) Shoulder pain Spondylolisthesis at L4-L5 level Thoracic kyphosis Varicosities of leg Vision abnormalities Vitamin D deficiency Surgical History History of esophagogastroduodenoscopy (EGD) (05/13/17) S/P TAVR (transcatheter aortic valve replacement) Sigmoidoscopy performed Status post appendectomy Status post breast biopsy Status post colonoscopy (05/13/17) Status post sclerotherapy of varicose veins Family History Brother Heart disease Hypertension Father Heart disease Hypertension Heart attack Mother Osteoarthritis Sister Age: 85 Heart attack Heart disease Hypertension Brother Cancer Social History household members: none Smoking Status: Former smoker alcohol intake: current Discharge Plan Discharge Plan Patient Disposition: Home Provider Discharge Comment: You were admitted for very low blood counts. This is from likely a lower GI bleed in your colon. We stopped your warfarin and your blood counts remained stable. I would not take warfarin any longer, and check with your mill control operator about this. We've put you on a daily antiacid pill as well. I would get your bloodwork done again with your PCP in 1-2 weeks. Discharge orders & Medications Prescriptions: New pantoprazole [Protonix] 40 mg tablet,delayed release (DR/EC) 40 mg PO DAILY Qty: 90 0RF Continued (DME) handicap placard See Rx Instructions .Route .MEDSUPPLY Qty: 1 0RF Rx Instructions: As directed levothyroxine 125 mcg tablet 125 mcg PO DAILY Qty: 90 3RF metoprolol succinate 25 mg tablet extended release 24 hr 25 mg PO DAILY diphenhydramine HCl [Allergy (diphenhydramine)] 25 mg capsule 25 mg PO BEDTIME PRN (Reason: Rash) melatonin 5 mg tablet,chewable 5 mg PO BEDTIME PRN (Reason: supplement) loratadine [Allergy Relief (loratadine)] 10 mg tablet 10 mg PO DAILY tramadol 50 mg tablet 50 mg PO TID PRN (Reason: pain) Qty: 60 1RF simvastatin 20 mg tablet See Rx Instructions .ROUTE .COMPLEX Qty: 90 3RF Dose Instruction: TAKE 1 TABLET BY MOUTH EVERY EVENING Rx Instructions: TAKE 1 TABLET BY MOUTH EVERY EVENING acetaminophen 500 mg Tablet 500 mg PO BID Vitamin B12+ Vitamin C 1 tab PO DAILY lisinopril 5 mg tablet 5 mg PO DAILY Discontinued warfarin 1 mg tablet See Rx Instructions PO DAILY Qty: 90 1RF Rx Instructions: Take one 1mg tab in the evening along with one 5mg tab for a total of 6mg each evening. warfarin 5 mg tablet See Rx Instructions PO DAILY Qty: 90 1RF Rx Instructions: Take one 5mg tab each evening along with one 1mg tablet for a total of 6mg each evening Follow up/Referrals: Mike Myers, [Primary Care Provider] - 1 Week (*Labs ordered and need to be done at 9:00am before appt on 02/18/23. *Appt on Sunday, February 18 at 10:30am. Please check-in at 10:15. [phone] ) Visit Report/Discharge Packet Instructions: Anemia, Pantoprazole Stand Alone Forms: Patient Portal/API, Stroke Signs & Symptoms Discharge Data Primary Care Provider: Mike Myers Discharges patient from system. Discharge Date/Time: 02/10/23 12:54 Quality VTE Deep Vein Thrombosis/Pulmonary Embolism Present on Admission: No
--- NOTE | 2023-02-10 13:29 | CM.DPC ---
DCP Discharge Home Per MD, pt is medically stable to d/c home today and no identified barriers to discharge. SW met bedside with pt and explained role and she confirms she is feeling better and agreeable with d/c to home and denies any d/c needs and states her local sister will provide transport home for her around lunch time and Pt already called her PCP Dr. Myers and updated his office on her change in meds and need for f/u appointment. Per RN, no concerns at this time and discharge instructions provided. Plan: Patient to d/c home today via sister POV and outpt f/u with PCP and no further SW needs at this time. Jaz Lopez MSW
== END 2023-02-10 12:54 | disposition home or self-care (01) | DRG 378 ==
LOC: ED 13:52 → AC 14:50
PROVIDERS: Nurse Practitioner Critical Care Medicine; Admitting Provider Student in an Organized Health Care Education/Training Program; Emergency Provider Emergency Medicine; Family Provider Internal Medicine Interventional Cardiology; PCP Family Medicine; Referring Provider Emergency Medicine; Visit Provider Student in an Organized Health Care Education/Training Program
DX: K92.2 Gastrointestinal hemorrhage, unspecified (principal); D62 Acute posthemorrhagic anemia; D68.318 Other hemorrhagic disorder due to intrinsic circulating anticoagulants, antibodies, or inhibitors; I82.409 Acute embolism and thrombosis of unspecified deep veins of unspecified lower extremity; I48.0 Paroxysmal atrial fibrillation; I10 Essential (primary) hypertension; E03.9 Hypothyroidism, unspecified; E78.5 Hyperlipidemia, unspecified; Z87.891 Personal history of nicotine dependence; Z95.2 Presence of prosthetic heart valve; Z79.01 Long term (current) use of anticoagulants; D50.9 Iron deficiency anemia, unspecified; E53.8 Deficiency of other specified B group vitamins
CPT/HCPCS: 36415; 36430; 71260; 74177; 80048; 80053; 82607; 83540; 83550; 85007; 85025; 85610; 86850; 86900; 86901; 96365; 96367; 99232; 99284; 99285; G0378; P9016; C9113; J3430; J7168; Q9967

== ENCOUNTER → 2023-02-13 11:58 | Outpatient (CLI) | payer MEDICARE, SELFPAY ==
[2023-02-08 18:16] VITALS: BMI 28.8
[2023-02-13 13:19] LABS: Basophils Absolute Auto 100 /uL (0-100); Basophils Percent Auto 1.4 % (0-2); Eosinophils Absolute Auto 200 /uL (0-450); Eosinophils Percent Auto 3.9 % (2-4); Hematocrit 26.1 % (36-46); Hemoglobin 8.1 g/dL (12.0-16.0); Lymphocytes Absolute Auto 1100 /uL (1100-4500); Lymphocytes Percent Auto 21.3 % (25-40); Mean Corpuscular Volume 67.8 fL (80-100); Monocytes Absolute Auto 400 /uL (0-900); Monocytes Percent Auto 8.3 % (3-14); Neutrophils Absolute Auto 3300 /uL (1500-7000); Neutrophils Percent Auto 65.1 % (50-75); Platelet Count 174 X10^3/uL (150-400); Red Blood Cell Count 3.86 X10^6/uL (4.0-5.2); Red Cell Distribution Width 23.4 % (11.6-14.8); White Blood Cell Count 5.1 X10^3/uL (4.5-11.0)
[2023-02-13 13:23] LABS: Add Manual Diff / Slide Review SLIDE REVIEW
[2023-02-13 13:32] LABS: Anisocytosis 2+; Microcytosis 2+; Ovalocytes 1+
[2023-02-13 13:36] LABS: Hypochromasia 2+; Schistocytes 1+; Target Cells 1+; Tear Drop Cells 1+
[2023-02-13 14:02] LABS: INR 1.2 (0.9-1.3); Prothrombin Time 13.4 SECONDS (10.1-12.7)
== END ==
PROVIDERS: Family Provider Internal Medicine Interventional Cardiology; PCP Family Medicine; Referring Provider Family Medicine; Visit Provider Family Medicine
DX: D50.8 Other iron deficiency anemias (principal); K92.2 Gastrointestinal hemorrhage, unspecified; R79.1 Abnormal coagulation profile
CPT/HCPCS: 36415; 85025; 85610

== ENCOUNTER → 2023-04-24 13:45 | Outpatient (CLI) | payer MEDICARE, SELFPAY ==
[2023-02-08 18:16] VITALS: BMI 28.8
[2023-04-24 16:15] LABS: Alanine Aminotransferase 13 IU/L (<35); Albumin 3.7 g/dL (3.5-5.0); Albumin Globulin Ratio 1.7 (1.0-2.8); Alkaline Phosphatase 49 U/L (38-126); Aspartate Aminotransferase 21 IU/L (14-36); BUN Creatinine Ratio 18.1 (6-22); Bilirubin Total 0.4 mg/dL (0.2-1.3); Blood Urea Nitrogen 15 mg/dL (7-17); Calcium 8.9 mg/dL (8.4-10.2); Carbon Dioxide 23 mmol/L (22-32); Chloride 109 mmol/L (98-107); Estimated Glomerular Filt Rate > 60 mL/min (>60); Globulin 2.2 g/dL (1.7-4.1); Glucose 110 mg/dL (80-110); HEMOLYSIS < 15 (0-50); Potassium 4.1 mmol/L (3.4-5.1); Sodium 139 mmol/L (137-145); Total Protein 5.9 g/dL (6.3-8.2)
[2023-04-24 16:17] LABS: HEMOLYSIS < 15 (0-50); Iron 15 ug/dL (37-170)
[2023-04-24 16:26] LABS: Add Manual Diff / Slide Review NO; Basophils Absolute Auto 0 /uL (0-100); Basophils Percent Auto 1.1 % (0-2); Eosinophils Absolute Auto 100 /uL (0-450); Eosinophils Percent Auto 2.5 % (2-4); Hematocrit 22.2 % (36-46); Lymphocytes Absolute Auto 1300 /uL (1100-4500); Lymphocytes Percent Auto 34.6 % (25-40); Mean Corpuscular HGB Conc 29.6 % (30-36); Mean Corpuscular Hemoglobin 18.3 PG (26-34); Mean Corpuscular Volume 61.9 fL (80-100); Monocytes Absolute Auto 300 /uL (0-900); Monocytes Percent Auto 8.7 % (3-14); Neutrophils Absolute Auto 1900 /uL (1500-7000); Neutrophils Percent Auto 53.1 % (50-75); Red Blood Cell Count 3.58 X10^6/uL (4.0-5.2); Red Cell Distribution Width 18.5 % (11.6-14.8); White Blood Cell Count 3.6 X10^3/uL (4.5-11.0)
[2023-04-24 16:28] LABS: Percent Iron Saturation 4 % (15-50); Total Iron Binding Capacity 371 ug/dL (265-497); Transferrin 271 mg/dL (206-381)
[2023-04-24 16:36] LABS: Hemoglobin 6.6 g/dL (12.0-16.0)
[2023-04-24 17:00] LABS: Vitamin B12 249 pg/mL (239-931)
[2023-04-24 18:36] LABS: Platelet Estimate Adequate on smear
[2023-04-24 18:37] LABS: Hypochromasia 2+; Microcytosis 2+; Ovalocytes 2+; Poikilocytosis 2+; Schistocytes 1+
== END ==
PROVIDERS: Family Provider Internal Medicine Interventional Cardiology; PCP Family Medicine; Referring Provider Family Medicine; Visit Provider Family Medicine
DX: K92.2 Gastrointestinal hemorrhage, unspecified (principal); D64.9 Anemia, unspecified; E53.8 Deficiency of other specified B group vitamins; I10 Essential (primary) hypertension
CPT/HCPCS: 36415; 80053; 82607; 83540; 83550; 85025

== ENCOUNTER → 2023-06-18 10:24 | Outpatient (CLI) | payer MEDICARE, SELFPAY ==
[2023-02-08 18:16] VITALS: BMI 28.8
[2023-06-18 12:09] LABS: Add Manual Diff / Slide Review NO; Basophils Absolute Auto 100 /uL (0-100); Basophils Percent Auto 1.2 % (0-2); Eosinophils Absolute Auto 200 /uL (0-450); Eosinophils Percent Auto 4.6 % (2-4); Hematocrit 24.3 % (36-46); Hemoglobin 7.4 g/dL (12.0-16.0); Lymphocytes Absolute Auto 1000 /uL (1100-4500); Lymphocytes Percent Auto 23.6 % (25-40); Mean Corpuscular HGB Conc 30.5 % (30-36); Mean Corpuscular Hemoglobin 22.2 PG (26-34); Mean Corpuscular Volume 72.8 fL (80-100); Monocytes Absolute Auto 400 /uL (0-900); Monocytes Percent Auto 8.4 % (3-14); Neutrophils Absolute Auto 2700 /uL (1500-7000); Neutrophils Percent Auto 62.2 % (50-75); Platelet Count 185 X10^3/uL (150-400); Red Blood Cell Count 3.33 X10^6/uL (4.0-5.2); Red Cell Distribution Width 28.2 % (11.6-14.8); White Blood Cell Count 4.4 X10^3/uL (4.5-11.0)
[2023-06-18 12:21] LABS: HEMOLYSIS < 15 (0-50); Iron 49 ug/dL (37-170)
[2023-06-18 12:22] LABS: Microcytosis 1+; Ovalocytes 1+; Schistocytes 1+; Tear Drop Cells 1+
[2023-06-18 12:34] LABS: Percent Iron Saturation 16 % (15-50); Total Iron Binding Capacity 310 ug/dL (265-497); Transferrin 253 mg/dL (206-381)
== END ==
LOC: LAB 10:26
PROVIDERS: Family Provider Internal Medicine Interventional Cardiology; PCP Family Medicine; Referring Provider Family Medicine; Visit Provider Family Medicine
DX: K92.2 Gastrointestinal hemorrhage, unspecified (principal); D50.8 Other iron deficiency anemias
CPT/HCPCS: 36415; 83540; 83550; 85025